=== PATIENT | male | born 1965 | race African-American/Black ===

== ENCOUNTER 2017-09-13 13:49 | Emergency (ER) | END 2017-09-13 17:13 | disposition home or self-care (01) ==

== ENCOUNTER 2018-12-14 17:09 | Inpatient (IN) | payer MEDICAID, OTHER ==
[~2018-12-14] VITALS: Ht 177.8 cm; Wt 84.0 kg
[2018-12-14 17:24] VITALS: Ht 177.8 cm; Wt 84.0 kg
[2018-12-14] MEDS ORDERED: ACETAMINOPHEN 325 MG TAB PO STA (17:27)
[2018-12-14] MEDS ORDERED: CEFTRIAXONE 1 GM/50 ML (PMX) 50 ML IVPB STA (17:27)
[2018-12-14] MEDS ORDERED: SODIUM CHLORIDE 0.9% 1L BAG IV* STA (17:31)
[2018-12-14] MEDS ORDERED: ONDANSETRON 4 MG INJ IV PRN (20:00)
--- NOTE | 2018-12-14 20:01 | ERD ---
ER Documentation Chief Complaint Chief Complaint bib ra from home c/o fever x 2 days ,hematuria , chest pain today HPI Patient is a 53-year-old male with prostate cancer who presents with fever. The patient has chest pain but denies cough. He has an indwelling urine catheter. He said this symptoms started a few days ago. He was on "some antibiotic" but does not know what it was. Upon review of old medical records this is the patient's third visit to the ER since 2018 but review of the emergency department information exchange system shows visits to 4 separate emergency departments for a total of 12 months over the past 1 year. His primary doctor is Dr. Scott. ROS All systems reviewed and are negative except as per history of present illness. Allergies Allergies: Coded Allergies: No Known Allergy (Unverified , 09/13/17) PMhx/Soc History of Surgery: Yes (right hip sx) Hx Neurological Disorder: No Hx Respiratory Disorders: No Hx Cardiac Disorders: Yes (htn) Hx Psychiatric Problems: No Hx Miscellaneous Medical Probl: Yes (enlarge prostate; prostate ca) Hx Alcohol Use: No Hx Substance Use: No Hx Tobacco Use: No Smoking Status: Never smoker FmHx Family History: diabetes Physical Exam Vitals Vital Signs Date Temp Pulse Resp B/P (MAP) Pulse Ox O2 O2 Flow FiO2 Time Delivery Rate 12/14/18 98.5 19:57 12/14/18 105 18 110/62 100 Room Air 19:06 (78) 12/14/18 102.1 17:38 12/14/18 Nasal 2 17:28 Cannula 12/14/18 102.1 110 18 98/63 (75) 96 17:24 Physical Exam Const: Moderate distress Head: Atraumatic Eyes: Normal Conjunctiva ENT: Normal External Ears, Nose and Mouth. Neck: Full range of motion. No meningismus. Resp: Clear to auscultation bilaterally Cardio: Tachycardic rate without murmur Abd: Soft, pain over the bladder Skin: No petechiae or rashes Back: No midline or flank tenderness Ext: No cyanosis, or edema Neur: Awake and alert Psych: Normal Mood and Affect Result Diagram: 12/14/18 1755 12/14/18 1755 Results 24 hrs Laboratory Tests Test 12/14/18 17:55 12/14/18 19:28 White Blood Count 5.6 10^3/ul Red Blood Count 3.37 10^6/ul Hemoglobin 9.6 g/dl Hematocrit 30.2 % Mean Corpuscular Volume 89.6 fl Mean Corpuscular Hemoglobin 28.5 pg Mean Corpuscular Hemoglobin Concent 31.8 g/dl Red Cell Distribution Width 16.0 % Platelet Count 162 10^3/UL Mean Platelet Volume 9.2 fl Immature Granulocytes % 2.100 % Neutrophils % 71.8 % Lymphocytes % 12.6 % Monocytes % 12.9 % Eosinophils % 0.2 % Basophils % 0.4 % Nucleated Red Blood Cells % 0.0 /100WBC Immature Granulocytes # 0.120 10^3/ul Neutrophils # 4.1 10^3/ul Lymphocytes # 0.7 10^3/ul Monocytes # 0.7 10^3/ul Eosinophils # 0.0 10^3/ul Basophils # 0.0 10^3/ul Nucleated Red Blood Cells # 0.0 10^3/ul Prothrombin Time 15.1 Sec Prothrombin Time Ratio 1.2 INR International Normalized Ratio 1.18 Activated Partial Thromboplast Time 31.6 Sec Sodium Level 135 mmol/L Potassium Level 4.2 mmol/L Chloride Level 102 mmol/L Carbon Dioxide Level 21 mmol/L Anion Gap 12 Blood Urea Nitrogen 28 mg/dl Creatinine 0.82 mg/dl Est Glomerular Filtrat Rate mL/min > 60 mL/min Glucose Level 86 mg/dl POC Venous Lactate 3.7 mmol/L Calcium Level 10.0 mg/dl Total Bilirubin 0.4 mg/dl Direct Bilirubin 0.00 mg/dl Indirect Bilirubin 0.4 mg/dl Aspartate Amino Transf (AST/SGOT) 25 IU/L Alanine Aminotransferase (ALT/SGPT) 10 IU/L Alkaline Phosphatase 964 IU/L Troponin I < 0.012 ng/ml Total Protein 5.8 g/dl Albumin 2.9 g/dl Globulin 2.90 g/dl Albumin/Globulin Ratio 1.00 Urine Color RED Urine Clarity CLOUDY Urine pH 6.0 Urine Specific [place] 1.014 Urine Ketones NEGATIVE mg/dL Urine Nitrite NEGATIVE mg/dL Urine Bilirubin NEGATIVE mg/dL Urine Urobilinogen NEGATIVE mg/dL Urine Leukocyte Esterase NEGATIVE [place]/ul Urine Microscopic RBC > 182 /HPF Urine Microscopic WBC > 182 /HPF Urine Bacteria FEW /HPF Urine Yeast (Budding) MODERATE /HPF Urine Hemoglobin 2+ mg/dL Urine Glucose 1+ mg/dL Urine Total Protein 2+ mg/dl Current Medications Medications Dose Sig/May Start Time Status Last (Trade) Ordered Route PRN Stop Time Admin Dose Reason Admin 650 mg ONCE STAT 12/14/18 DC 12/14/18 Acetaminophen PO 17:27 17:38 (Tylenol 12/14/18 17:28 Tab) Ceftriaxone 50 ml @ ONCE STAT 12/14/18 DC 12/14/18 Sodium 100 mls/hr IVPB 17:27 17:59 12/14/18 17:56 Sodium 2,520 ml BOLUS OVER 2 12/14/18 DC 12/14/18 Chloride HOURS STAT 17:31 17:59 (NS) IV* 12/14/18 17:32 Procedures/MDM Chest x-ray read by radiology. EKG read by me: Rate/Rhythm: Sinus tachycardia rate of 110 Intervals: Normal Impression: Tachycardia without ischemia Sepsis Documentation: Patient's infectious symptoms have not stabilized and the patient is at risk of rapid decompensation. The patient will be admitted for careful hydration, antibiotic therapy, and infectious source control. SEVERE SEPSIS CRITERIA: Infectious source: Cystitis End organ damage indicated by: Lactic acid greater than 2 SEPSIS MANAGEMENT Time of recognition of sepsis: 1754. Time of recognition of severe sepsis: 1754. Time of recognition of septic shock: No septic shock at this time. 3 HOUR BUNDLE Blood cultures x 2 before broad-spectrum antibiotics: Yes 30 ml/kg NS bolus completed Initial lactate 3.7 Repeat lactate pending SEPTIC SHOCK ASSESSMENT: No lactic acid > 4.0 No persistent hypotension (SBP < 90 or 40 mmHg drop, MAP < 65) despite 30 mL/kg IV fluid bolus VOLUME REASSESSMENT FOR SEPTIC SHOCK: No septic shock at this time PERSISTENT HYPOTENSION TREATMENT: Comfort care no Central line not Required Vasopressor started not required I considered further perfusion assessment with CVP measurement, SCVO2, bedside ultrasound volume assessment, passive leg raise, trial of further fluid bolus. And proceeded with 30 ml/kg fluid bolus of NSS, broad spectrum antibiotics, and admission. I spoke with Dr. Orr for admission to a telemetry bed. CRITICAL CARE Critical care time 35 minutes Emergent fluid management while maintaining close respiratory support. Provision of immediate and broad-spectrum antibiotic therapy. Simultaneous assessment for possible sources in order to direct targeted therapy. Consideration for invasive and chemical support to prevent cardiopulmonary collapse. Critical care time is independent of procedures performed. Departure Diagnosis: Primary Impression: Severe sepsis Additional Impression: Cystitis Condition: Serious MARI CARSON MD Dec 14, 2018 20:01
[2018-12-14] MEDS ORDERED: PIPER-TAZO 3.375 GM IV (PMX) 100 ML IVPB ONE (20:30)
[2018-12-14 21:23] VITALS: PULSE 107
[2018-12-14 21:30] VITALS: BP 109/59; PULSE 106; RESP 18
[2018-12-14] MEDS: SOD CHLORIDE 0.9% 1,000 ML IV SCH (23:00)
[2018-12-15] VITALS (12 sets, daily range): BP systolic 88–110; BP diastolic 55–65; PULSE 67–115; RESP 18–23
[2018-12-15] MEDS ORDERED: DOCUSATE SODIUM 100 MG CAP PO PRN (01:00)
[2018-12-15] MEDS ORDERED: HYDROCODONE/APAP (5/325) TAB PO PRN (01:00)
[2018-12-15] MEDS ORDERED: HYDROCODONE/APAP (10/325) TAB PO PRN (01:00)
[2018-12-15] MEDS ORDERED: PIPER-TAZO 3.375 GM IV (PMX) 100 ML IVPB SCH (02:00)
[2018-12-15] MEDS ORDERED: PENDING SANTYL ORDER FOR WOUND CARE XX PRN (02:30)
[2018-12-15] MEDS: PANTOPRAZOLE (EC) 40 MG TAB PO SCH (05:37)
[2018-12-15] MEDS: PIPER-TAZO 3.375 GM IV (PMX) 100 ML IVPB SCH ×3 (05:37→22:29)
[2018-12-15] MEDS: METOPROLOL 25 MG TAB PO SCH ×2 (09:00→22:27)
[2018-12-15] MEDS: GABAPENTIN 300 MG CAP PO SCH ×2 (09:35→22:28)
[2018-12-15] MEDS: FOLIC ACID 1 MG TAB PO SCH ×2 (09:35→22:28)
[2018-12-15] MEDS: THIAMINE 100 MG TAB PO SCH ×2 (09:36→22:28)
[2018-12-15] MEDS: CYANOCOBALAMIN 500 MCG TAB PO SCH ×2 (09:36→22:28)
[2018-12-15] MEDS: FINASTERIDE 5 MG TAB PO SCH (09:36)
--- NOTE | 2018-12-15 11:07 | HP ---
DATE OF ADMISSION: 12/14/2018 CHIEF COMPLAINT: Fevers associated with bloody urine. HISTORY OF PRESENT ILLNESS: A 53-year-old unfortunate male with widely metastatic prostate cancer an d chronic indwelling Mcpherson catheter, presented to emergency room with complaint of subjective fevers and bloody urine. The patient reports the symptoms started a few days prior to admission. He was st arted on oral antibiotics with no improvement in his symptoms. Mcpherson catheter has been in place [facility] 06/2019. The patient received Lupron shots as an outpatient. Prostate cancer is spread to the banner and patient has chronic low back pain. Initial evaluation revealed a contaminated urine with associated gross hematuria. Lactic acid was el evated at 3.3. Renal function was intact. White blood cell count was normal at 5.6. PAST MEDICAL HISTORY: 1. Widely metastatic prostate cancer. 2. Chronic urinary retention. 3. Chronic indwelling Mcpherson catheter. 4. Hypertension. MEDICATIONS PRIOR TO ADMISSION: 1. Flomax. 2. Metoprolol. 3. Gabapentin. 4. [place]. 5. Vitamin supplements. 6. Finasteride. 7. Lupron shots every 3 months. SOCIAL HISTORY: Patient lives at home. The was at the bedside. He denies tobacco, alcohol use . PHYSICAL EXAMINATION: GENERAL: Well-developed, well-nourished male who is in no apparent distress. VITAL SIGNS: Blood pressure is 103/59, pulse 115, temperature 98, respiration is 22. HEENT: Extraocular muscles intact. Pupils are equal and reactive to light bilaterally. Sclerae are anicteric. Oropharynx is clear and moist. NECK: Supple, no JVD, no carotid bruits. LUNGS: Clear to auscultation bilaterally. CARDIAC: Regular rate and rhythm. No murmurs or gallops. ABDOMEN: Soft, nontender, nondistended, normoactive bowel sounds. EXTREMITIES: No clubbing, cyanosis, or edema. NEUROLOGICAL: Grossly nonfocal. PLAN: 1. Admit to telemetry. 2. IV Zosyn every 8 hours. 3. Continuous bladder irrigation. 4. Resume Proscar and Flomax. 5. Urology consultation was requested. 6. Urine culture was ordered. Dictated By: JING REYNOLDS/THIERRY Conf#: [id number] DID#: [id number] CC: RYAN SEBASTIAN MD;*[facility]*
[2018-12-15] MEDS: ACETAMINOPHEN 325 MG TAB PO PRN ×2 (11:52→16:43)
[2018-12-15] MEDS: SOD CHLORIDE 0.9% 1,000 ML IV SCH ×2 (11:53→22:26)
--- NOTE | 2018-12-15 19:44 | CONS ---
Assessment/Plan Assessment/Plan Hospital Course (Demo Recall) 53-year-old male known to have a history of prostate cancer with metastasis. The patient condition has been deteriorating. He has been on Lupron Depot injection and recently was started on radiation. He only had one dose of radiation before he was admitted to another hospital. He has not been able to urinate and needed an indwelling Mcpherson catheter which is being changed every month or earlier if obstructed. The patient was admitted to [facility] this time because of hematuria and urinary tract infection. The patient has not been able to move his lower extremities and he was seen by the neurosurgeon who recommended radiation to the tumor in the back and that is why the patient was getting radiation. Presently the patient does have a fever and possible urinary tract infection. The chest x-ray showed:1. New 3.8 cm rounded opacity at the left apex. Cannot exclude pulmonary mass. 2. Mild right lower lung consolidation or atelectasis. 3. CT scan of the chest is advised to further evaluate.. Urologically he already has received the Lupron Depot injections and he has an indwelling Mcpherson catheter which I will change to a new one in a.m. Would encourage to elevate the scrotum on a towel all the time to help decrease the edema. Continue supportive treatment and comfort treatment Consultation Date/Type/Reason Admit Date/Time Dec 14, 2018 at 19:58 Date of Consultation: Dec 15, 2018 Type of Consult Urology Reason for Consultation Metastatic prostate cancer, gross hematuria and urinary retention Requesting Provider: JING BRICENO MD Date/Time of Note DATE: 12/15/18 TIME: 19:35 Hx of Present Illness 53-year-old male known to have a history of prostate cancer with metastasis. The patient condition has been deteriorating. He has been on Lupron Depot injection and recently was started on radiation. He only had one dose of radiation before he was admitted to another hospital. He has not been able to urinate and needed an indwelling Mcpherson catheter which is being changed every month or earlier if obstructed. The patient was admitted to [facility] this time because of hematuria and urinary tract infection. The patient has not been able to move his lower extremities and he was seen by the neurosurgeon who recommended radiation to the tumor in the back and that is why the patient was getting radiation. Constitutional: other (Patient is very weak) Respiratory: No wheezing Cardiovascular: No chest pain Genitourinary: other (Edema of the penis and scrotum) Musculoskeletal: other (Edema over both thighs) Neurologic: other (Weakness of both lower extremities) Past Medical History Medical History: cancer (Of the prostate), hypertension Medications Current Medications Ondansetron HCl (Zofran Inj) 4 mg ER BRIDGE PRN IV NAUSEA/VOMITING; Start 12/14/18 at 20:00; Stop 12/15/18 at 19:59 Acetaminophen (Tylenol Tab) 650 mg ER BRIDGE PRN PO .MILD PAIN 1-3 OR TEMP Last administered on 12/15/18at 16:43; Admin Dose 650 MG; Start 12/14/18 at 20:00; Stop 12/15/18 at 19:59 Sodium Chloride 1,000 ml @ 100 mls/hr Q10H IV Last administered on 12/15/18at 11:53; Admin Dose 100 MLS/HR; Start 12/14/18 at 23:00 Piperacillin Sod/ Tazobactam Sod 100 ml @ 200 mls/hr Q8 IVPB Last administered on 12/15/18at 15:46; Admin Dose 200 MLS/HR; Start 12/15/18 at 05:00 Acetaminophen/ Hydrocodone Bitart ([place] (5/325)) 1 tab Q6H PRN PO PAIN LEVEL 1-3; Start 12/15/18 at 01:00 Acetaminophen/ Hydrocodone Bitart ([place] (10/325)) 1 tab Q6H PRN PO MODERATE PAIN LEVEL 4-6; Start 12/15/18 at 01:00 Docusate Sodium (Colace) 100 mg BID PRN PO CONSTIPATION; Start 12/15/18 at 01:00 Metoprolol Tartrate (Lopressor) 25 mg BID PO ; Start 12/15/18 at 09:00 Finasteride (Proscar) 5 mg DAILY PO Last administered on 12/15/18at 09:36; Admin Dose 5 MG; Start 12/15/18 at 09:00 Tamsulosin HCl (Flomax) 0.4 mg HS PO ; Start 12/15/18 at 21:00 Gabapentin (Neurontin) 300 mg BID PO Last administered on 12/15/18at 09:35; Admin Dose 300 MG; Start 12/15/18 at 09:00 Pantoprazole (Protonix Tab) 40 mg DAILY@06 PO Last administered on 12/15/18at 05:37; Admin Dose 40 MG; Start 12/15/18 at 06:00 Cyanocobalamin (Vitamin B12) 1,000 mcg BID PO Last administered on 12/15/18at 09:36; Admin Dose 1,000 MCG; Start 12/15/18 at 09:00 Thiamine HCl (Vitamin B1) 100 mg BID PO Last administered on 12/15/18at 09:36; Admin Dose 100 MG; Start 12/15/18 at 09:00 Folic Acid (Folic Acid) 1 mg BID PO Last administered on 12/15/18at 09:35; Admin Dose 1 MG; Start 12/15/18 at 09:00 Miscellaneous Information ([facility]) This patient wade... PRN PRN XX WOUND CARE; Start 12/15/18 at 02:30 Allergies: Coded Allergies: No Known Allergy (Unverified , 09/13/17) Past Surgical History Past Surgical Hx: no surgical history Social History Smoking Status: Never smoker Exam/Review of Systems Exam Vitals Vital Signs Date Temp Pulse Resp B/P (MAP) Pulse Ox O2 O2 Flow FiO2 Time Delivery Rate 12/15/18 99.8 17:28 12/15/18 110 16:00 12/15/18 23 107/63 96 Room Air 15:46 (78) 12/15/18 2.0 08:22 Intake and Output 12/14/18 12/14/18 12/15/18 1515:00 23:00 07:00 OutputOutput Total 1000 ml BalanceBalance -1000 ml Constitutional: alert Psych: depression ENMT: nl external ears & nose Neck: supple Respiratory: No wheezing Cardiovascular: No jugular venous distention (JVD) Gastrointestinal: soft Genitourinary - Male: other (With edema of both testes and penis) Extremities: edema (Of both thighs) Neurological: focal weakness (Of both lower extremities) Results Result Diagram: 12/14/18 6737 12/14/18 8005 Results 24hrs Laboratory Tests Test 12/14/18 20:08 12/14/18 21:52 POC Venous Lactate 3.1 *H Lactic Acid Level 3.3 *H Medications Medication Current Medications Ondansetron HCl (Zofran Inj) 4 mg ER BRIDGE PRN IV NAUSEA/VOMITING; Start 12/14/18 at 20:00; Stop 12/15/18 at 19:59 Acetaminophen (Tylenol Tab) 650 mg ER BRIDGE PRN PO .MILD PAIN 1-3 OR TEMP Last administered on 12/15/18at 16:43; Admin Dose 650 MG; Start 12/14/18 at 20:00; Stop 12/15/18 at 19:59 Sodium Chloride 1,000 ml @ 100 mls/hr Q10H IV Last administered on 12/15/18at 11:53; Admin Dose 100 MLS/HR; Start 12/14/18 at 23:00 Piperacillin Sod/ Tazobactam Sod 100 ml @ 200 mls/hr Q8 IVPB Last administered on 12/15/18at 15:46; Admin Dose 200 MLS/HR; Start 12/15/18 at 05:00 Acetaminophen/ Hydrocodone Bitart ([place] (5/325)) 1 tab Q6H PRN PO PAIN LEVEL 1-3; Start 12/15/18 at 01:00 Acetaminophen/ Hydrocodone Bitart ([place] (10/325)) 1 tab Q6H PRN PO MODERATE PAIN LEVEL 4-6; Start 12/15/18 at 01:00 Docusate Sodium (Colace) 100 mg BID PRN PO CONSTIPATION; Start 12/15/18 at 01:00 Metoprolol Tartrate (Lopressor) 25 mg BID PO ; Start 12/15/18 at 09:00 Finasteride (Proscar) 5 mg DAILY PO Last administered on 12/15/18at 09:36; Admin Dose 5 MG; Start 12/15/18 at 09:00 Tamsulosin HCl (Flomax) 0.4 mg HS PO ; Start 12/15/18 at 21:00 Gabapentin (Neurontin) 300 mg BID PO Last administered on 12/15/18at 09:35; Admin Dose 300 MG; Start 12/15/18 at 09:00 Pantoprazole (Protonix Tab) 40 mg DAILY@06 PO Last administered on 12/15/18at 05:37; Admin Dose 40 MG; Start 12/15/18 at 06:00 Cyanocobalamin (Vitamin B12) 1,000 mcg BID PO Last administered on 12/15/18at 09:36; Admin Dose 1,000 MCG; Start 12/15/18 at 09:00 Thiamine HCl (Vitamin B1) 100 mg BID PO Last administered on 12/15/18at 09:36; Admin Dose 100 MG; Start 12/15/18 at 09:00 Folic Acid (Folic Acid) 1 mg BID PO Last administered on 12/15/18at 09:35; Admin Dose 1 MG; Start 12/15/18 at 09:00 Miscellaneous Information (Pending [place]yl Order For Wound Care) This patient wade... PRN PRN XX WOUND CARE; Start 12/15/18 at 02:30 RYAN SEBASTIAN MD Dec 15, 2018 19:44
[2018-12-15] MEDS: TAMSULOSIN (SR) 0.4 MG CAP PO SCH (22:28)
[2018-12-16] VITALS (12 sets, daily range): BP systolic 98–123; BP diastolic 65–71; PULSE 89–122; RESP 17–19
[2018-12-16] MEDS: GUAIFENESIN/DM 5ML CUP PO PRN ×3 (03:34→21:51)
[2018-12-16] MEDS: SOD CHLORIDE 0.9% 1,000 ML IV SCH ×2 (05:00→15:00)
[2018-12-16] MEDS: PIPER-TAZO 3.375 GM IV (PMX) 100 ML IVPB SCH ×2 (05:26→14:00)
[2018-12-16] MEDS: PANTOPRAZOLE (EC) 40 MG TAB PO SCH (05:29)
--- NOTE | 2018-12-16 08:34 | CONS ---
Consult Date/Type/Reason Admit Date/Time Dec 14, 2018 at 19:58 Initial Consult Date 12/15/18 Type of Consultation: Urology Reason for Consultation Hematuria and metastatic prostate cancer Requesting Provider: JING BRICENO MD Date/Time of Note DATE: 12/16/18 TIME: 08:31 Subjective Patient is comfortable and no change overnight. Objective Vitals Vital Signs Date Temp Pulse Resp B/P (MAP) Pulse Ox O2 O2 Flow FiO2 Time Delivery Rate 12/16/18 98.3 102 19 123/68 95 Nasal 2.0 07:36 (86) Cannula Intake and Output 12/15/18 12/15/18 12/16/18 1515:00 23:00 07:00 IntakeIntake Total 1000 ml 1550 ml 250 ml OutputOutput Total 1200 ml 1100 ml BalanceBalance 1000 ml 350 ml -850 ml Exam Edema of both thighs, scrotum and penis. Old Mcpherson catheter is draining well. Occasional blood clot is seen in the tubing. Results/Medications Result Diagram: 12/14/18 1755 12/14/18 1755 Medications Current Medications Sodium Chloride 1,000 ml @ 100 mls/hr Q10H IV Last administered on 12/15/18at 22:26; Admin Dose 100 MLS/HR; Start 12/14/18 at 23:00 Piperacillin Sod/ Tazobactam Sod 100 ml @ 200 mls/hr Q8 IVPB Last administered on 12/16/18at 05:26; Admin Dose 200 MLS/HR; Start 12/15/18 at 05:00 Acetaminophen/ Hydrocodone Bitart ([place] (5/325)) 1 tab Q6H PRN PO PAIN LEVEL 1-3; Start 12/15/18 at 01:00 Acetaminophen/ Hydrocodone Bitart ([place] (10/325)) 1 tab Q6H PRN PO MODERATE PAIN LEVEL 4-6; Start 12/15/18 at 01:00 Docusate Sodium (Colace) 100 mg BID PRN PO CONSTIPATION; Start 12/15/18 at 01:00 Metoprolol Tartrate (Lopressor) 25 mg BID PO Last administered on 12/15/18at 22:27; Admin Dose 25 MG; Start 12/15/18 at 09:00 Finasteride (Proscar) 5 mg DAILY PO Last administered on 12/15/18at 09:36; Admin Dose 5 MG; Start 12/15/18 at 09:00 Tamsulosin HCl (Flomax) 0.4 mg HS PO Last administered on 12/15/18 22:28; Admin Dose 0.4 MG; Start 12/15/18 at 21:00 Gabapentin (Neurontin) 300 mg BID PO Last administered on 12/15/18 22:28; Admin Dose 300 MG; Start 12/15/18 at 09:00 Pantoprazole (Protonix Tab) 40 mg DAILY@06 PO Last administered on 12/16/18 05:29; Admin Dose 40 MG; Start 12/15/18 at 06:00 Cyanocobalamin (Vitamin B12) 1,000 mcg BID PO Last administered on 12/15/18 22:28; Admin Dose 1,000 MCG; Start 12/15/18 at 09:00 Thiamine HCl (Vitamin B1) 100 mg BID PO Last administered on 12/15/18 22:28; Admin Dose 100 MG; Start 12/15/18 at 09:00 Folic Acid (Folic Acid) 1 mg BID PO Last administered on 12/15/18 22:28; Admin Dose 1 MG; Start 12/15/18 at 09:00 Miscellaneous Information (Pending [facility] Order For Wound Care) This patient wade... PRN PRN XX WOUND CARE; Start 12/15/18 at 02:30 Guaifenesin/ Dextromethorphan (Robitussin Dm Liquid Cup) 10 ml Q4H PRN PO COUGH Last administered on 12/16/18 03:34; Admin Dose 10 ML; Start 12/16/18 at 03:30 Assessment/Plan Hospital Course (Demo Recall) 53-year-old male known to have a history of prostate cancer with metastasis. The patient condition has been deteriorating. He has been on Lupron Depot injection and recently was started on radiation. He only had one dose of radia tion before he was admitted to another hospital. He has not been able to urinate and needed an indwelling Mcpherson catheter which is being changed every month or earlier if obstructed. The patient was admitted to [facility] this time because of hematuria and urinary tract infection. The patient has not been able to move his lower extremities and he was seen by the neurosurgeon who recommended radiation to the tumor in the back and that is why the patient was getting radiation. Presently the patient does have a fever and possible urinary tract infection. The chest x-ray showed:1. New 3.8 cm rounded opacity at the left apex. Cannot exclude pulmonary mass. 2. Mild right lower lung consolidation or atelectasis. 3. CT scan of the chest is advised to further evaluate.. Urologically he already has received the Lupron Depot injections. I removed the old Mcpherson catheter and inserted a new 18 Welsh three-way Mcpherson catheter. I did not start bladder irrigation but it could be done if needed.. Would encourage to elevate the scrotum on a towel all the time to help decrease the edema. Continue supportive treatment and comfort treatment I did discuss with his who was at his bedside his condition. RYAN SEBASTIAN MD Dec 16, 2018 08:34
[2018-12-16] MEDS: FINASTERIDE 5 MG TAB PO SCH (09:22)
[2018-12-16] MEDS: CYANOCOBALAMIN 500 MCG TAB PO SCH ×2 (09:22→21:50)
[2018-12-16] MEDS: FOLIC ACID 1 MG TAB PO SCH ×2 (09:22→21:50)
[2018-12-16] MEDS: GABAPENTIN 300 MG CAP PO SCH ×2 (09:23→21:50)
[2018-12-16] MEDS: METOPROLOL 25 MG TAB PO SCH ×2 (09:23→21:00)
[2018-12-16] MEDS: THIAMINE 100 MG TAB PO SCH ×2 (09:24→21:50)
--- NOTE | 2018-12-16 09:56 | PDOCDIS ---
Discharge Instructions CONDITION [id number] Patient Condition: [id number] Fair HOME CARE INSTRUCTIONS: [id number] Diet Instructions: [id number] FOLLOW UP/APPOINTMENTS Follow-up Plan pcp 1 week JING BRICENO MD Dec 16, 2018 09:55
[2018-12-16] MEDS ORDERED: ENZA40CA PO (10:10)
[2018-12-16] MEDS ORDERED: HYDR-3601 PO (10:17)
[2018-12-16] MEDS ORDERED: FINA5TAB4 PO (10:17)
[2018-12-16] MEDS ORDERED: LEVO500T48 PO (10:17)
[2018-12-16] MEDS ORDERED: METO-448 PO (10:17)
[2018-12-16] MEDS ORDERED: GABA300C16 PO (10:17)
--- NOTE | 2018-12-16 16:22 | DS ---
DATE OF ADMISSION: 12/14/2018 DATE OF DISCHARGE: 12/16/2018 DISCHARGE DIAGNOSES: 1. Widely metastatic prostate cancer. 2. Gross hematuria, improved. 3. Possible urinary tract infection. 4. Acute bronchitis. 5. Hypertension. 6. Poor prognosis. HOSPITAL COURSE: A 53-year-old unfortunate male with widely metastatic prostate cancer, undergoing L upron injections as an outpatient as well as radiation, presented with complaint of fever and gross h ematuria. The patient received continuous bladder irrigation during the hospitalization. Blood and urine cultures were negative except Karon growth in the urine about 30,000 colonies. The case was discussed with Dr. Negron. Chest x-ray showed new 3.8 cm rounded opacity at the left apex. Pulmona ry mass could not be excluded. His overall prognosis is quite poor and he is bedridden. Cancer invo lves low back, for which he is receiving radiation. The patient is in a stable condition for dischar ge to home with resumption of home health nurse. I have prescribed 7 days of Levaquin for treatment of acute bronchitis and possible UTI. Dictated By: JING REYNOLDS/THIERRY Conf#: [id number] DID#: [id number]
[2018-12-16] MEDS ORDERED: FLUCONAZOLE 200 MG TAB PO SCH (18:00)
[2018-12-16] MEDS: TAMSULOSIN (SR) 0.4 MG CAP PO SCH (21:50)
[2018-12-17] VITALS: PULSE 50
== END 2018-12-16 23:15 | disposition home or self-care (01) | DRG 202 ==
LOC: E/R 17:09 → TEL 19:58
PROVIDERS: ADMIT Internal Medicine; ATTEND Internal Medicine
DX: J20.9 Acute bronchitis, unspecified (principal); N39.0 Urinary tract infection, site not specified; C79.51 Secondary malignant neoplasm of bone; R33.9 Retention of urine, unspecified; I10 Essential (primary) hypertension; C61 Malignant neoplasm of prostate; R31.0 Gross hematuria; Z79.818 Long term (current) use of other agents affecting estrogen receptors and estrogen levels
CPT/HCPCS: 71045; 80053; 81001; 83605; 84484; 85025; 85610; 85730; 87045; 87075; 87081; 87086; 93005; 96374; J0696; J2543; J7030

== ENCOUNTER 2019-01-25 13:28 | Inpatient (IN) | payer OTHER ==
[~2019-01-25] VITALS: Ht 177.8 cm; Wt 81.6 kg
[~2019-01-25 13:28] MED LIST: ENZA40CA PO; FINA5TAB4 PO; GABA300C16 PO; HYDR-3601 PO; LEVO500T48 PO; METO-448 PO
[2019-01-25] MEDS ORDERED: SODIUM CHLORIDE 0.9% 1L BAG IV* STA ×2 (13:53→21:58)
--- NOTE | 2019-01-25 14:01 | ERD ---
ER Documentation Chief Complaint Chief Complaint BIBA fr home, weakness, possible low H/H HPI This is a 54-year-old male with a past medical history of prostate carcinoma. The patient also has a history of hypertension chronic anemia with frequent blood transfusions. The patient indicates that the prostate cancer has metastasized to the bone. The patient had ancillary laboratory work performed yesterday received a call that his hemoglobin was 4. The patient does indicate for the past several days he has had generalized weakness. He denies any hemoptysis hematemesis or melanotic stools. The patient indicates he had a dec rease in appetite and poor oral intake. He has no chest pain. He has no shortness of breath. He denies any hematuria. He has an indwelling Mcpherson catheter. The patient was brought in from home by EMS. ROS All systems reviewed and are negative except as per history of present illness. Medications Home Meds Reported Medications Hydrocodone/Acetaminophen ([place] 10-325 Tablet) 1 Each Tablet, 1 EACH PO Q6 PRN for PAIN, TAB 01/25/19 Morphine Sulfate* (Ms Contin*) 15 Mg Tablet.sa, 15 MG PO Q12 PRN for PAIN, TAB 01/25/19 Metoprolol Tartrate* (Lopressor*) 25 Mg Tablet, 25 MG PO BID, #60 TAB if blood pressure is 110 or higher 01/25/19 Sennosides* (Senna Lax*) 8.6 Mg Tablet, 1 TAB PO DAILY, TAB 01/25/19 Enzalutamide (XTANDI) 40 Mg Capsule, 160 MG PO QHS, CAP pt has own med 01/25/19 Finasteride* (Finasteride*) 5 Mg Tablet, 5 MG PO DAILY, TAB 01/25/19 Pantoprazole* (Protonix*) 40 Mg Tablet.dr, 40 MG PO DAILY, TAB 01/25/19 Ferrous Sulfate* (Ferrous Sulfate*) 325 Mg Tabec, 325 MG PO BID, TAB 01/25/19 Tamsulosin Hcl* (Flomax*) 0.4 Mg Cap.er.24h, 0.4 MG PO DAILY, CAP 01/25/19 Discontinued Reported Medications Enzalutamide (XTANDI) 40 Mg Capsule, 160 MG PO, CAP 12/16/18 Discontinued Scripts Levofloxacin* (Levaquin*) 500 Mg Tablet, 500 MG PO DAILY for 7 Days, TAB Prov:JING ORR MD 12/16/18 Finasteride* (Finasteride*) 5 Mg Tablet, 5 MG PO DAILY for 30 Days, TAB Prov:JING ORR MD 12/16/18 Hydrocodone Bit-Acetaminophen (Hydrocodone Bit-APAP) 5-325MG Tablet, 1 TAB PO Q6H PRN for PAIN LEVEL 1-3 for 30 Days, TAB Prov:JING ORR MD 12/16/18 Gabapentin* (Gabapentin*) 300 Mg Capsule, 300 MG PO BID for 30 Days, CAP Prov:JING ORR MD 12/16/18 Metoprolol Tartrate* (Lopressor*) 25 Mg Tab, 25 MG PO BID for 30 Days, TAB Prov:JING ORR MD 12/16/18 Allergies Allergies: Coded Allergies: No Known Allergy (Unverified , 01/25/19) PMhx/Soc History of Surgery: Yes ( right hip sx) Hx Neurological Disorder: No Hx Respiratory Disorders: No Hx Cardiac Disorders: No (htn) Hx Psychiatric Problems: No Hx Miscellaneous Medical Probl: Yes (cardiac dx) Hx Alcohol Use: No Hx Substance Use: No Hx Tobacco Use: No Physical Exam Vitals Vital Signs Date Temp Pulse Resp B/P (MAP) Pulse Ox O2 O2 Flow FiO2 Time Delivery Rate 01/25/19 98.7 118 24 76/49 (58) 100 Room Air 17:08 01/25/19 98.7 108 20 78/50 (59) 99 13:45 Physical Exam Constitutional:Well-developed. Cachectic HEENT:Normocephalic. Atraumatic.Pupils were equal round reactive to light. Very dry mucous membranes.No tonsillar exudates. Conjunctival pallor Neck: No nuchal rigidity. No lymphadenopathy. No posterior cervical spine tenderness or step-offs. Respiratory: Not using accessory muscles of respiration.Lungs were clear to auscultation bilaterally. No rhonchi. No rales. No wheezing. Cardiovascular: Tachycardic with regular rhythm.No murmurs. No rubs were appreciated.S1, S2 normal. Distal pulses are palpable 2+ bilaterally. GI: Abdomen was soft. Nontender. Non Distended. No pulsatile abdominal masses or bruits. No rebound. No guarding. Bowel sounds were present and normal. Muscle skeletal: Muscle atrophy in the bilateral lower extremities and patient is unable to lift the lower extremities against gravity. Skin: No petechia, no purpura. No lesions on the palms or the soles of the feet. No maculopapular rash. Sacral decubitus ulcer measuring roughly 6 cm x 5 cm stage III. No purulent drainage. Heel ulcers present bilaterally stage II. NEURO: Patient was alert, awake, orientated x3. Patient speaks in a soft tone. Patient bedbound gait not observed. Result Diagram: 01/25/19 1414 01/25/19 1414 Results 24 hrs Laboratory Tests Test 01/25/19 14:14 01/25/19 14:23 01/25/19 16:31 01/25/19 16:40 White Blood Count 5.3 10^3/ul Red Blood Count 1.44 10^6/ul Hemoglobin 4.3 g/dl Hematocrit 14.5 % Mean Corpuscular 100.7 fl Volume Mean Corpuscular 29.9 pg Hemoglobin Mean Corpuscular 29.7 g/dl Hemoglobin Concent Red Cell 19.2 % Distribution Width Platelet Count 143 10^3/UL Mean Platelet 9.8 fl Volume Immature 5.600 % Granulocytes % Neutrophils % 86.7 % Segmented 75 % Neutrophils % (Manual) Band Neutrophils % 19 % (Manual) Lymphocytes % 4.1 % Lymphocytes % 3 % (Manual) Monocytes % 3.4 % Monocytes % 2 % (Manual) Eosinophils % 0.0 % Eosinophils % 1 % (Manual) Basophils % 0.2 % Nucleated Red Blood 0.4 /100WBC Cells % Immature 0.300 10^3/ul Granulocytes # Neutrophils # 4.6 10^3/ul Neutrophils # 4.0 10^3/ul (Manual) Band Neutrophils # 1.0 10^3/ul Lymphocytes 0.1 10^3/ul (Manual) Lymphocytes # 0.2 10^3/ul Monocytes # 0.2 10^3/ul Monocytes # 0.1 10^3/ul (Manual) Eosinophils # 0.0 10^3/ul Basophils # 0.0 10^3/ul Nucleated Red Blood 0.0 10^3/ul Cells # Pathologist YES Review (Hematology) Platelet Estimate NORMAL Polychromasia 1+ Hypochromasia 2+ Poikilocytosis 2+ Anisocytosis 1+ Microcytosis 1+ Macrocytosis 1+ Tear Drop Cells 1+ Prothrombin Time 15.2 Sec Prothrombin Time 1.2 Ratio INR International 1.19 Normalized Ratio Activated 35.3 Sec Partial Thromboplas t Time Sodium Level 131 mmol/L Potassium Level 4.3 mmol/L Chloride Level 100 mmol/L Carbon Dioxide 22 mmol/L Level Anion Gap 9 Blood Urea Nitrogen 14 mg/dl Creatinine 0.41 mg/dl Est Glomerular > 60 mL/min Filtrat Rate mL/min Glucose Level 105 mg/dl Calcium Level 7.6 mg/dl Total Bilirubin 0.4 mg/dl Direct Bilirubin 0.00 mg/dl Indirect Bilirubin 0.4 mg/dl Aspartate Amino < 8 IU/L Transf (AST/SGOT) Alanine 14 IU/L Aminotransferase (A LT/SGPT) Alkaline 335 IU/L Phosphatase Troponin I < 0.012 ng/ml Total Protein 5.5 g/dl Albumin 2.2 g/dl Globulin 3.30 g/dl Albumin/Globulin 0.66 Ratio Amylase Level 86 U/L Lipase 101 U/L POC Venous Lactate 3.2 mmol/L Lactic Acid Level 3.0 mmol/L Urine Color YELLOW Urine Clarity CLOUDY Urine pH 5.0 Urine Specific 1.018 [place] Urine Ketones TRACE mg/dL Urine Nitrite NEGATIVE mg/dL Urine Bilirubin NEGATIVE mg/dL Urine Urobilinogen NEGATIVE mg/dL Urine Leukocyte 2+ Te[place]ilo/ul Esterase Urine Microscopic 27 /HPF RBC Urine Microscopic > 182 /HPF WBC Urine Yeast FEW /HPF (Budding) Urine Hemoglobin 2+ mg/dL Urine Glucose NEGATIVE mg/dL Urine Total Protein 1+ mg/dl Current Medications Medications Dose Sig/May Start Time Status Last (Trade) Ordered Route PRN Stop Time Admin Dose Reason Admin Sodium 2,800 ml BOLUS OVER 2 01/25/19 DC 01/25/19 Chloride HOURS STAT 13:53 01/25/19 14:33 (NS) IV* 13:56 Cefepime HCl 50 ml @ ONCE STAT 01/25/19 DC 01/25/19 100 mls/hr IVPB 14:40 01/25/19 14:54 15:09 Vancomycin 250 ml @ ONCE ONCE 01/25/19 DC 01/25/19 HCl 125 mls/hr IVPB 15:00 01/25/19 15:38 16:59 Ondansetron 4 mg ER BRIDGE 01/25/19 HCl (Zofran PRN IV 17:00 01/26/19 Inj) NAUSEA/VOMITI 16:59 NG 650 mg ER BRIDGE 01/25/19 Acetaminophen PRN PO 17:00 01/26/19 (Tylenol .MILD PAIN 16:59 Tab) 1-3 OR TEMP 650 mg Q4H PRN 01/25/19 Acetaminophen PO fever 18:00 (Tylenol Tab) Finasteride 5 mg DAILY PO 01/26/19 (Proscar) 09:00 1 tab Q6H PRN 01/25/19 Acetaminophen PO MODERATE 18:00 / PAIN LEVEL Hydrocodone 4-6 Bitart ([place] (10/325)) Morphine 15 mg Q12 PRN 01/25/19 Sulfate (Ms PO SEVERE 18:00 Contin (Er)) PAIN LEVEL 7-10 40 mg DAILY PO 01/26/19 Pantoprazole 09:00 (Protonix Tab) Senna 1 tab DAILY PO 01/26/19 (Senokot) 09:00 Tamsulosin 0.4 mg DAILY PO 01/26/19 HCl 09:00 (Flomax) 160 mg QHS PO 01/25/19 UNV Miscellaneous 21:00 Information Procedures/MDM This is a 54-year-old male that presented to the emergency department signs of clinical dehydration hypotension and conjunctival pallor. The patient immediately was placed on a panel monitor continuous pulse oximetry and IV access was established by nursing staff. The patient did also meet Sirs criteria. He was given a 30 cc/kg bolus of normal saline as the patient showed signs of clinical dehydration to improve his hypotension. The patient was typed and crossed for 2 units of packed red blood cells as hemoglobin was 4.3. 12 Lead EKG tracing ordered and reviewed by myself showed: Sinus tachycardia 115 bpm and no arrhythmia. CA interval normal. QRS duration normal. No ST segment elevation No ST segment depression. No changes consistent with acute ischemia. Patient's infectious symptoms have not stabilized and the patient is at risk of rapid decompensation. The patient will be admitted for careful hydration, antibiotic therapy, and infectious source control. Severe Sepsis Assessment: Infectious Source: Pyleonephritis End organ damage indicated by: Lactate > 2.0 mmol/L Hypotension( SBP < 90 or >40 mmHG drop or MAP < 65) Severe Sepsis Managment: Blood Cultures X 2 before broad spectrum antibiotics initiated within 3 hours of recognition. 30 ml/kg NS bolus Completed Initial Lactate: 3.2 Repeat Lactate pending Septic Shock Assessment (1 hour post 30 ml/kg fluid bolus): Hypotension (SBP < 90 or 40 mmHg drop, MAP < 65): Yes Lactic acid > 4.0 No Perfusion Reassessment for Septic Shock taken at 1708: Temp 98.6, Pulse 118, RR 24, BP 76/49 Heart Exam: Tachycardic Lung Exam: No Crackles Capillary Refill: Normal Peripheral Pulses: Radially present Skin: Pale Hypotensive Treatment (not required for isolated lactic acid elevation): Comfort Care: No Central LIne: Patient refused Vasopressor started: Not given patient requested further IV fluids I considered further perfusion assessment with CVP measurement, SCVO2, bedside ultrasound volume assessment, passive leg raise, trial of further fluid bolus. And preceded with IV fluids Please note that I had a lengthy discussion with the patient and his regarding the persistent hypotension despite IV fluids. I indicated that the patient would require a central line for possible vasopressor support. The patient was a medical capacity to make his own decisions. The patient and his stated that they were refusing a central line at this time. The patient had been in the emergency department for over 5 hours. During this time the patient was septic and had received IV antibiotics which included vancomycin. I did feel that this could have contributed to the patient's hypotension in addition to his severe sepsis and dehydration. However the patient states for the past several weeks he has been hypotensive with a systolic blood pressure between 80 and 90 mmHg. Prior to several weeks ago the patient had elevated blood pressure but due to the persistent hypotension was instructed to stop taking his antihypertensive medications. The patient stated he wanted to be given the blood transfusion and again was refusing the central line. I performed multiple repeat physical examinations. The patient had very good femoral pulses bilaterally. He had no changes in his mental status. The blood was hung at 6:40 PM and the transfusion began. He will receive 2 units of packed red blood cells ordered by myself and further blood will be ordered by the admitting physician Dr. Orr. The patient will be admitted to the telemetry service in serious condition. The patient will be admitted under the care of Dr. Orr. Critical Care: Time: 70 minutes Treatments/Evaluations: Close monitoring and treatment of unstable vital signs, cardiorespiratory, and neurologic status, while maintaining tight balance of fluid, respiratory, and cardiac interventions. Time does not include performing any of the above billable procedures. Departure Diagnosis: Primary Impression: Anemia Anemia type: unspecified type Qualified Codes: D64.9 - Anemia, unspecified Additional Impressions: Prostate carcinoma Severe sepsis Condition: Serious KENISHA FELIZ MD Jan 25, 2019 14:01
[2019-01-25] MEDS ORDERED: TAMS-14 PO (14:35)
[2019-01-25] MEDS ORDERED: PANT40TA3 PO (14:35)
[2019-01-25] MEDS ORDERED: FER325 PO (14:35)
[2019-01-25] MEDS ORDERED: FINA5TAB4 PO (14:36)
[2019-01-25] MEDS ORDERED: ENZA40CA PO (14:37)
[2019-01-25] MEDS ORDERED: SENN-120 PO (14:38)
[2019-01-25] MEDS ORDERED: METO25TA4 PO (14:40)
[2019-01-25] MEDS ORDERED: MORP15TA92 PO (14:40)
[2019-01-25] MEDS ORDERED: CEFEPIME 2GM/50 ML (PMX) 50 ML IVPB STA (14:40)
[2019-01-25] MEDS ORDERED: HYDR-3980 PO (14:41)
[2019-01-25] MEDS ORDERED: VANCOMYCIN 1 GM (PMX) 250 ML IVPB ONE (15:00)
[2019-01-25] MEDS ORDERED: ACETAMINOPHEN 325 MG TAB PO PRN ×2 (17:00→18:00)
[2019-01-25] MEDS ORDERED: ONDANSETRON 4 MG INJ IV PRN (17:00)
[2019-01-25] MEDS ORDERED: morphine (ER) 15 MG TAB PO PRN (18:00)
[2019-01-25] MEDS ORDERED: SOD CHLORIDE 0.9% 1,000 ML IV STA (22:26)
[2019-01-26] VITALS (38 sets, daily range): BP systolic 74–93; BP diastolic 47–66; PULSE 93–110; RESP 9–25; Ht 177.8 cm; Wt 81.6 kg
[2019-01-26] MEDS: DEXTROSE 5%-0.45% NACL 1,000 ML IV SCH ×4 (02:17→21:02)
[2019-01-26] MEDS: PANTOPRAZOLE (EC) 40 MG TAB PO SCH (06:16)
[2019-01-26] MEDS: PIPER-TAZO 3.375 GM IV (PMX) 100 ML IVPB SCH ×3 (08:47→21:02)
[2019-01-26] MEDS: SENNA TAB PO SCH (08:47)
[2019-01-26] MEDS: TAMSULOSIN (SR) 0.4 MG CAP PO SCH (08:47)
[2019-01-26] MEDS: FINASTERIDE 5 MG TAB PO SCH (08:47)
--- NOTE | 2019-01-26 09:47 | HP ---
DATE OF ADMISSION: 01/25/2019 CHIEF COMPLAINT: Generalized weakness. HISTORY OF PRESENT ILLNESS: A 54-year-old male with widely metastatic prostate [facility], presented to Emergency Room with complaint of generalized weakness. The patient and passed past a previous history of anemia. REVIEW OF SYSTEMS: He denies chest pain or shortness of breath. No a bdominal pain. No fever, chills, nausea, or vomiting. He has a chronic indwelling Mcpherson catheter. Initial evaluation revealed hemoglobin of 4.3. The white blood cell count was 5.8 and platelet count of 115,000. Basic metabolic panel was within normal limits. Lactate level was elevated. Patient r eceived 3 units of packed RBC with repeat hemoglobin of 6.9. He was hypotensive and received empiric IV antibiotics in the Emergency Room. Preliminary blood cultures are growing gram-negative rods. PAST MEDICAL HISTORY: 1. Metastatic prostate cancer. 2. History of hypertension. 3. Chronic back pain due to bony metastasis. MEDICATIONS PRIOR TO ADMISSION: 1. Xtandi 160 mg at bedtime. 2. Flomax 0.4 mg daily. 3. Ferrous sulfate 325 mg b.i.d. 4. Lopressor 25 mg b.i.d. 5. [place] 10/325 one tablet every 6 hours as needed. 6. MS Contin 15 mg every 12 hours as needed. 7. Protonix 40 mg daily. 8. Senna 1 tablet daily. 9. Finasteride 5 mg daily. SOCIAL HISTORY: Patient lives at home with his . He denies tobacco or alcohol use. PHYSICAL EXAMINATION GENERAL: Well-developed, nourished, debilitated male who is in no apparent distress. VITAL SIGNS: Blood pressure 89/60, pulse 95, respiration 16. The patient is afebrile. HEENT: Extraocular muscles intact. Pupils are equal and reactive to light bilaterally. Sclerae are anicteric. Oropharynx is clear and moist. NECK: Supple, no JVD, no carotid bruits. LUNGS: Decreased breath sounds at bases. CARDIAC: Regular rate and rhythm. No murmurs, rubs or gallops. ABDOMEN: Soft, nontender, nondistended, normoactive bowel sounds. EXTREMITIES: Mild pedal edema. ASSESSMENT: 1. A 54-year-old male with widely metastatic prostate cancer. 2. Recurrent anemia due to bony metastasis. There is no history of hematemesis, bright red blood pe r rectum, or melena. 3. Gram-negative jeny urosepsis. 4. Chronic indwelling Mcpherson catheter. 5. Chronic debilitation. 6. Coccyx, some bilateral heel decubitus ulcers. 7. Poor prognosis. PLAN: 1. Admit to ICU, transfuse additional unit of packed RBC. Continue IV fluid hydration. 2. IV Zosyn. 3. Check final blood culture results. 4. The patient wishes to be FULL CODE. Dictated By: JING REYNOLDS/THIERRY Conf#: [id number] DID#: [id number]
[2019-01-26] MEDS ORDERED: PIPER-TAZO 3.375 GM IV (PMX) 100 ML IVPB SCH (14:00)
[2019-01-26] MEDS ORDERED: ALBUMIN HUMAN 25% 100 ML IV ONE (15:30)
[2019-01-27] VITALS (68 sets, daily range): BP systolic 78–121; BP diastolic 46–74; PULSE 96–156; RESP 11–28
[2019-01-27] MEDS: DEXTROSE 5%-0.45% NACL 1,000 ML IV SCH ×2 (05:48→21:34)
[2019-01-27] MEDS: PIPER-TAZO 3.375 GM IV (PMX) 100 ML IVPB SCH ×3 (05:49→21:31)
[2019-01-27] MEDS: PANTOPRAZOLE (EC) 40 MG TAB PO SCH (05:49)
[2019-01-27] MEDS: TAMSULOSIN (SR) 0.4 MG CAP PO SCH (09:05)
[2019-01-27] MEDS: FINASTERIDE 5 MG TAB PO SCH (09:05)
[2019-01-27] MEDS: SENNA TAB PO SCH (09:05)
[2019-01-27] MEDS ORDERED: VANCOMYCIN IV PER PHARMACY XX SCH (09:30)
--- NOTE | 2019-01-27 09:32 | PN ---
Date/Time of Note Date/Time of Note DATE: 01/27/19 TIME: 09:30 Subjective Alert and comfortable. No new complaints Objective Vitals Vital Signs Date Temp Pulse Resp B/P (MAP) Pulse Ox O2 O2 Flow FiO2 Time Delivery Rate 01/27/19 103 16 08:45 01/27/19 79/46 (57) 08:30 01/27/19 98.1 08:00 01/27/19 Nasal 2.0 08:00 Cannula 01/27/19 100 06:00 Intake and Output 01/26/19 01/26/19 01/27/19 1515:00 23:00 07:00 IntakeIntake Total 980 ml 1480 ml 960 ml OutputOutput Total 150 ml 225 ml 265 ml BalanceBalance 830 ml 1255 ml 695 ml Decreased breath sounds at bases Regular rate and rhythm Soft nontender nondistended normoactive bowel sounds Mild edema Results Result Diagram: 01/27/19 0650 01/27/19 0650 Medications Medications Current Medications Acetaminophen (Tylenol Tab) 650 mg Q4H PRN PO fever; Start 01/25/19 at 18:00 Finasteride (Proscar) 5 mg DAILY PO Last administered on 01/27/19at 09:05; Admin Dose 5 MG; Start 01/26/19 at 09:00 Acetaminophen/ Hydrocodone Bitart ([place] ()) 1 tab Q6H PRN PO MODERATE PAIN LEVEL 4-6; Start 01/25/19 at 18:00 Morphine Sulfate (Ms Contin (Er)) 15 mg Q12 PRN PO SEVERE PAIN LEVEL 7-10; Start 01/25/19 at 18:00 Pantoprazole (Protonix Tab) 40 mg DAILY@0600 PO Last administered on 01/27/19at 05:49; Admin Dose 40 MG; Start 01/26/19 at 06:00 Senna (Senokot) 1 tab DAILY PO Last administered on 01/27/19at 09:05; Admin Dose 1 TAB; Start 01/26/19 at 09:00 Tamsulosin HCl (Flomax) 0.4 mg DAILY PO Last administered on 01/27/19at 09:05; Admin Dose 0.4 MG; Start 01/26/19 at 09:00 Miscellaneous Information DOSE = 160mg = 4 X 4... QHS XX Last administered on 01/26/19at 21:55; Admin Dose 160 MG; Start 01/26/19 at 21:00 Dextrose/Sodium Chloride 1,000 ml @ 100 mls/hr Q10H IV Last administered on 01/27/19 05:48; Admin Dose 100 MLS/HR; Start 01/26/19 at 00:30 Piperacillin Sod/ Tazobactam Sod 100 ml @ 200 mls/hr Q8 IVPB Last administered on 01/27/19 05:49; Admin Dose 200 MLS/HR; Start 01/26/19 at 08:30 VTE Prophylaxis Risk score (from Ns)>0 risk: 7 SCD applied (from [facility] [place]): Yes Lines/Catheters IV Catheter Type: Saline Lock Mckeon in Place: Yes Cont'd mckeon catheter reason: terminal illness/intractable pain Assessment/Plan Assessment/Plan 54-year-old male with gram-positive cocci UTI Gram-negative jeny urosepsis Profound anemia, stable post transfusion Widely metastatic prostate cancer Multiple decubitus ulcers Poor prognosis. Patient wishes to be full code Continue IV Zosyn Add IV vancomycin Check final culture results Continue ICU monitoring JING BRICENO MD Jan 27, 2019 09:32
[2019-01-27] MEDS ORDERED: VANCOMYCIN HCL 1.5 GM in SOD CHLORIDE 0.9% 250 ML IVPB SCH ×2 (11:00→23:00)
[2019-01-27] MEDS: BALSAM PERU/CASTOR OIL 60 GM TUBE TOP SCH (21:31)
[2019-01-28] VITALS (26 sets, daily range): BP systolic 102–119; BP diastolic 58–73; PULSE 93–111; RESP 10–27
[2019-01-28] MEDS: PANTOPRAZOLE (EC) 40 MG TAB PO SCH (05:58)
[2019-01-28] MEDS: PIPER-TAZO 3.375 GM IV (PMX) 100 ML IVPB SCH (05:58)
[2019-01-28] MEDS: SENNA TAB PO SCH (07:40)
[2019-01-28] MEDS: FINASTERIDE 5 MG TAB PO SCH (08:52)
[2019-01-28] MEDS: TAMSULOSIN (SR) 0.4 MG CAP PO SCH (08:52)
[2019-01-28] MEDS: BALSAM PERU/CASTOR OIL 60 GM TUBE TOP SCH ×2 (08:53→20:36)
[2019-01-28] MEDS: COLLAGENASE 5 GM (UD JAR) TOP SCH (08:53)
[2019-01-28] MEDS: LEVOFLOXACIN 500 MG TAB PO SCH (10:52)
[2019-01-28] MEDS: LINEZOLID 600 MG/300 ML (PMX) 300 ML IVPB SCH ×2 (10:52→20:36)
[2019-01-28] MEDS: DEXTROSE 5%-0.45% NACL 1,000 ML IV SCH ×2 (10:53→21:15)
--- NOTE | 2019-01-28 12:39 | CONS ---
Assessment/Plan Assessment/Plan Hospital Course (Demo Recall) 1.Sepsis 2/2 to VRE/S.aureus uti and E.coli bacteremia 2. metastatic prostate ca 3. chronic back pain 4. thrombocytopenia R: cont. current antimicrobials await final ucx; query if e.coli will be isolated check ck will coordinate with pharmacy regarding dapto availability follow plts closely serial lactic and cbc further eval and documentation to follow shortly Consultation Date/Type/Reason Admit Date/Time Jan 26, 2019 at 09:33 Date of Consultation: Jan 28, 2019 Type of Consult ID Reason for Consultation ABX RECS; SEPSIS Requesting Provider: JING BRICENO MD Date/Time of Note DATE: 01/28/19 TIME: 12:34 Hx of Present Illness A very sad case of 54 yo AA male with metastatic prostate CA, htn, chronic back pain, admitted with gnr sepsis and VRE UTI. Past Medical History Home Meds Reported Medications Hydrocodone/Acetaminophen ([place] 10-325 Tablet) 1 Each Tablet, 1 EACH PO Q6 PRN for PAIN, TAB 01/25/19 Morphine Sulfate* (Ms Contin*) 15 Mg Tablet.sa, 15 MG PO Q12 PRN for PAIN, TAB 01/25/19 Metoprolol Tartrate* (Lopressor*) 25 Mg Tablet, 25 MG PO BID, #60 TAB if blood pressure is 110 or higher 01/25/19 Sennosides* (Senna Lax*) 8.6 Mg Tablet, 1 TAB PO DAILY, TAB 01/25/19 Enzalutamide (XTANDI) 40 Mg Capsule, 160 MG PO QHS, CAP pt has own med 01/25/19 Finasteride* (Finasteride*) 5 Mg Tablet, 5 MG PO DAILY, TAB 01/25/19 Pantoprazole* (Protonix*) 40 Mg Tablet.dr, 40 MG PO DAILY, TAB 01/25/19 Ferrous Sulfate* (Ferrous Sulfate*) 325 Mg Tabec, 325 MG PO BID, TAB 01/25/19 Tamsulosin Hcl* (Flomax*) 0.4 Mg Cap.er.24h, 0.4 MG PO DAILY, CAP 01/25/19 Discontinued Reported Medications Enzalutamide (XTANDI) 40 Mg Capsule, 160 MG PO, CAP 12/16/18 Discontinued Scripts Levofloxacin* (Levaquin*) 500 Mg Tablet, 500 MG PO DAILY for 7 Days, TAB Prov:JING BRICENO MD 12/16/18 Finasteride* (Finasteride*) 5 Mg Tablet, 5 MG PO DAILY for 30 Days, TAB Prov:JING BRICENO MD 12/16/18 Hydrocodone Bit-Acetaminophen (Hydrocodone Bit-APAP) 5-325MG Tablet, 1 TAB PO Q6H PRN for PAIN LEVEL 1-3 for 30 Days, TAB Prov:JING BRICENO MD 12/16/18 Gabapentin* (Gabapentin*) 300 Mg Capsule, 300 MG PO BID for 30 Days, CAP Prov:JING BRICENO MD 12/16/18 Metoprolol Tartrate* (Lopressor*) 25 Mg Tab, 25 MG PO BID for 30 Days, TAB Prov:JING BRICENO MD 12/16/18 Medications Current Medications Acetaminophen (Tylenol Tab) 650 mg Q4H PRN PO fever; Start 01/25/19 at 18:00 Finasteride (Proscar) 5 mg DAILY PO Last administered on 01/28/19at 08:52; Admin Dose 5 MG; Start 01/26/19 at 09:00 Acetaminophen/ Hydrocodone Bitart ([place] (10/325)) 1 tab Q6H PRN PO MODERATE PAIN LEVEL 4-6; Start 01/25/19 at 18:00 Morphine Sulfate (Ms Contin (Er)) 15 mg Q12 PRN PO SEVERE PAIN LEVEL 7-10; Start 01/25/19 at 18:00 Pantoprazole (Protonix Tab) 40 mg DAILY@0600 PO Last administered on 01/28/19at 05:58; Admin Dose 40 MG; Start 01/26/19 at 06:00 Senna (Senokot) 1 tab DAILY PO Last administered on 01/27/19at 09:05; Admin Dose 1 TAB; Start 01/26/19 at 09:00 Tamsulosin HCl (Flomax) 0.4 mg DAILY PO Last administered on 01/28/19at 08:52; Admin Dose 0.4 MG; Start 01/26/19 at 09:00 Miscellaneous Information DOSE = 160mg = 4 X 4... QHS XX Last administered on 01/27/19at 22:13; Admin Dose 160 MG; Start 01/26/19 at 21:00 Dextrose/Sodium Chloride 1,000 ml @ 100 mls/hr Q10H IV Last administered on 01/28/19at 10:53; Admin Dose 100 MLS/HR; Start 01/26/19 at 00:30 Collagenase (Santyl) 1 applic DAILY TOP Last administered on 01/28/19at 08:53; Admin Dose 1 APPLIC; Start 01/28/19 at 09:00 Linezolid 300 ml @ 300 mls/hr Q12 IVPB Last administered on 01/28/19at 10:52; Admin Dose 300 MLS/HR; Start 01/28/19 at 10:00 Levofloxacin (Levaquin) 500 mg DAILY@06 PO Last administered on 01/28/19at 10:52; Admin Dose 500 MG; Start 01/28/19 at 10:30 Allergies: Coded Allergies: No Known Allergy (Unverified , 01/25/19) Past Surgical History Past Surgical Hx: no surgical history Social History Smoking Status: Never smoker Exam/Review of Systems Exam Vitals Vital Signs Date Temp Pulse Resp B/P (MAP) Pulse Ox O2 O2 Flow FiO2 Time Delivery Rate 01/28/19 97 12 104/60 99 10:00 (75) 01/28/19 97.9 Nasal 2.0 08:00 Cannula 01/27/19 27 15:57 Intake and Output 01/27/19 01/27/19 01/28/19 1515:00 23:00 07:00 IntakeIntake Total 1168 ml 1266.333 ml 1066.668 ml OutputOutput Total 164 ml 365 ml 355 ml BalanceBalance 1004 ml 901.333 ml 711.668 ml Results Result Diagram: 01/28/19 0548 01/28/19 0545 Results 24hrs Laboratory Tests Test 01/28/19 05:20 01/28/19 05:45 01/28/19 05:48 Lab Scanned Report BLOOD TRANSFUSION Sodium Level 130 L Potassium Level 3.2 L Chloride Level 104 Carbon Dioxide Level 18 L Anion Gap 8 Blood Urea Nitrogen 10 Creatinine 0.37 L Est Glomerular Filtrat > 60 Rate mL/min Glucose Level 91 Calcium Level 8.0 L White Blood Count 4.1 L Red Blood Count 2.50 L Hemoglobin 7.5 L Hematocrit 23.2 L Mean Corpuscular Volume 92.8 Mean Corpuscular Hemoglobin 30.0 Mean Corpuscular 32.3 Hemoglobin Concent Red Cell Distribution Width 18.2 H Platelet Count 96 L Mean Platelet Volume 9.4 Immature Granulocytes % 2.700 H Neutrophils % 85.3 H Lymphocytes % 5.8 L Monocytes % 5.8 Eosinophils % 0.2 Basophils % 0.2 Nucleated Red Blood Cells % 0.0 Immature Granulocytes # 0.110 H Neutrophils # 3.5 Lymphocytes # 0.2 L Monocytes # 0.2 L Eosinophils # 0.0 Basophils # 0.0 Nucleated Red Blood Cells # 0.0 Medications Medication Current Medications Acetaminophen (Tylenol Tab) 650 mg Q4H PRN PO fever; Start 01/25/19 at 18:00 Finasteride (Proscar) 5 mg DAILY PO Last administered on 01/28/19 08:52; Admin Dose 5 MG; Start 01/26/19 at 09:00 Acetaminophen/ Hydrocodone Bitart ([place] (10/325)) 1 tab Q6H PRN PO MODERATE PAIN LEVEL 4-6; Start 01/25/19 at 18:00 Morphine Sulfate (Ms Contin (Er)) 15 mg Q12 PRN PO SEVERE PAIN LEVEL 7-10; Start 01/25/19 at 18:00 Pantoprazole (Protonix Tab) 40 mg DAILY@0600 PO Last administered on 01/28/19at 05:58; Admin Dose 40 MG; Start 01/26/19 at 06:00 Senna (Senokot) 1 tab DAILY PO Last administered on 01/27/19 09:05; Admin Dose 1 TAB; Start 01/26/19 at 09:00 Tamsulosin HCl (Flomax) 0.4 mg DAILY PO Last administered on 01/28/19 08:52; Admin Dose 0.4 MG; Start 01/26/19 at 09:00 Miscellaneous Information DOSE = 160mg = 4 X 4... QHS XX Last administered on 01/27/19 22:13; Admin Dose 160 MG; Start 01/26/19 at 21:00 Dextrose/Sodium Chloride 1,000 ml @ 100 mls/hr Q10H IV Last administered on 01/28/19 10:53; Admin Dose 100 MLS/HR; Start 01/26/19 at 00:30 Collagenase (Santyl) 1 applic DAILY TOP Last administered on 01/28/19 08:53; Admin Dose 1 APPLIC; Start 01/28/19 at 09:00 Linezolid 300 ml @ 300 mls/hr Q12 IVPB Last administered on 01/28/19at 10:52; Admin Dose 300 MLS/HR; Start 01/28/19 at 10:00 Levofloxacin (Levaquin) 500 mg DAILY@06 PO Last administered on 01/28/19at 10:52; Admin Dose 500 MG; Start 01/28/19 at 10:30 JULY BRENNAN MD Jan 28, 2019 12:39
[2019-01-29] VITALS (22 sets, daily range): BP systolic 78–119; BP diastolic 51–74; PULSE 87–102; RESP 11–20
[2019-01-29] MEDS: HYDROCODONE/APAP (10/325) TAB PO PRN ×2 (02:01→13:30)
[2019-01-29] MEDS: LEVOFLOXACIN 500 MG TAB PO SCH (05:28)
[2019-01-29] MEDS: PANTOPRAZOLE (EC) 40 MG TAB PO SCH (05:28)
--- NOTE | 2019-01-29 08:42 | CONS ---
Assessment/Plan Assessment/Plan Hospital Course (Demo Recall) 1.Sepsis 2/2 to VRE/S.aureus uti and E.coli bacteremia 2. metastatic prostate ca 3. chronic back pain 4. thrombocytopenia R: cont. current antimicrobials await final ucx; query if e.coli will be isolated ordered cbc and ck coordinated with pharmacy will be in approx mid morning for further eval. ty Consultation Date/Type/Reason Admit Date/Time Jan 26, 2019 at 09:33 Initial Consult Date 01/28/19 Type of Consult ID Requesting Provider: JING BRICENO MD Date/Time of Note DATE: 01/29/19 TIME: 08:40 Exam/Review of Systems Exam Vitals Vital Signs Date Temp Pulse Resp B/P (MAP) Pulse Ox O2 O2 Flow FiO2 Time Delivery Rate 01/29/19 88 08:07 01/29/19 97.6 16 96/57 (70) 98 08:05 01/29/19 Room Air 06:00 01/28/19 2.0 08:00 01/27/19 27 15:57 Intake and Output 01/28/19 01/28/19 01/29/19 1515:00 23:00 07:00 IntakeIntake Total 1500 ml 700 ml 100 ml OutputOutput Total 480 ml 370 ml 220 ml BalanceBalance 1020 ml 330 ml -120 ml Results Result Diagram: 01/28/19 0548 01/28/19 0545 Medications Medication Current Medications Acetaminophen (Tylenol Tab) 650 mg Q4H PRN PO fever; Start 01/25/19 at 18:00 Finasteride (Proscar) 5 mg DAILY PO Last administered on 01/28/19at 08:52; Admin Dose 5 MG; Start 01/26/19 at 09:00 Acetaminophen/ Hydrocodone Bitart ([place] (10/325)) 1 tab Q6H PRN PO MODERATE PAIN LEVEL 4-6 Last administered on 01/29/19at 02:01; Admin Dose 1 TAB; Start 01/25/19 at 18:00 Morphine Sulfate (Ms Contin (Er)) 15 mg Q12 PRN PO SEVERE PAIN LEVEL 7-10; Start 01/25/19 at 18:00 Pantoprazole (Protonix Tab) 40 mg DAILY@0600 PO Last administered on 01/29/19at 05:28; Admin Dose 40 MG; Start 01/26/19 at 06:00 Senna (Senokot) 1 tab DAILY PO Last administered on 01/27/19 09:05; Admin Dose 1 TAB; Start 01/26/19 at 09:00 Tamsulosin HCl (Flomax) 0.4 mg DAILY PO Last administered on 01/28/19 08:52; Admin Dose 0.4 MG; Start 01/26/19 at 09:00 Miscellaneous Information DOSE = 160mg = 4 X 4... QHS XX Last administered on 01/28/19 21:08; Admin Dose 160 MG; Start 01/26/19 at 21:00 Collagenase (Santyl) 1 applic DAILY TOP Last administered on 01/28/19 08:53; Admin Dose 1 APPLIC; Start 01/28/19 at 09:00 Linezolid 300 ml @ 300 mls/hr Q12 IVPB Last administered on 01/28/19 20:36; Admin Dose 300 MLS/HR; Start 01/28/19 at 10:00 Levofloxacin (Levaquin) 500 mg DAILY@06 PO Last administered on 01/29/19 05:28; Admin Dose 500 MG; Start 01/28/19 at 10:30 JULY BRENNAN MD Jan 29, 2019 08:42
[2019-01-29] MEDS: LINEZOLID 600 MG/300 ML (PMX) 300 ML IVPB SCH ×2 (08:48→22:43)
[2019-01-29] MEDS: TAMSULOSIN (SR) 0.4 MG CAP PO SCH (08:52)
[2019-01-29] MEDS: BALSAM PERU/CASTOR OIL 60 GM TUBE TOP SCH ×2 (08:59→21:27)
[2019-01-29] MEDS: FINASTERIDE 5 MG TAB PO SCH (08:59)
[2019-01-29] MEDS: SENNA TAB PO SCH (08:59)
[2019-01-29] MEDS: COLLAGENASE 5 GM (UD JAR) TOP SCH (08:59)
[2019-01-29] MEDS ORDERED: ONDANSETRON 4 MG INJ IV PRN (09:30)
[2019-01-29] MEDS ORDERED: POTASSIUM CHLORIDE (SR) 20 MEQ TAB PO STA ×2 (12:27→20:46)
[2019-01-29] MEDS: SOD CHLORIDE 0.9% 1,000 ML IV SCH ×2 (13:28→22:45)
[2019-01-29] MEDS ORDERED: SOD CHLORIDE 0.9% 1,000 ML IV ONE ×3 (16:30→23:30)
--- NOTE | 2019-01-29 16:33 | PN ---
Date/Time of Note Date/Time of Note DATE: 01/29/19 TIME: 16:32 Assessment/Plan VTE Prophylaxis Risk score (from Ns)>0 risk: 13 SCD applied (from [facility] [place]): Yes Pharmacological prophylaxis: NA/contraindicated Pharm contraindication: bleeding Lines/Catheters IV Catheter Type (from Nrsg): Mid Line Urinary Cath still in place: Yes Reason Cath still needed: terminal illness/intractable pain Assessment/Plan Hospital Course # Severe sepsis due to complicated UTI with MRSA and VRE , E coli bacteremia - follow up with ID recs , currently on Levaquin and Linezolid - IVF boluses PRN for MAP < 65 , #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 , # 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 , s/p transfusion, HH daily and transfuse if Hb < 7 # Decubitus ulcers, seen by wound care , recommended surgical consult , will DW Dr Us although poor surgical candidate # Poor prognosis, widely metastatic prostate CA , paraplegia , multiple decubitus ulcers , sepsis with multiple MDR bacteria anemia of malignancy , he remains full code , palliative consult #PPX: PPI , SCDs, Problems: (1) Prostate cancer metastatic to bone (2) Severe sepsis Status: Acute (3) Vancomycin resistant enterococcus culture positive (4) MRSA (methicillin resistant staph aureus) culture positive (5) Complicated UTI (urinary tract infection) (6) Decubitus ulcers (7) Paraplegic spinal paralysis (8) E coli bacteremia (9) Poor prognosis Result Diagram: 01/29/19 1019 01/29/19 1019 Results 24hrs Laboratory Tests Test 01/29/19 10:19 White Blood Count 3.3 L Red Blood Count 2.54 L Hemoglobin 7.7 L Hematocrit 23.6 L Mean Corpuscular Volume 92.9 Mean Corpuscular Hemoglobin 30.3 Mean Corpuscular Hemoglobin Concent 32.6 Red Cell Distribution Width 17.8 H Platelet Count 82 L Mean Platelet Volume 10.0 Immature Granulocytes % 1.500 H Neutrophils % 87.4 H Lymphocytes % 6.0 L Monocytes % 4.8 Eosinophils % 0.0 Basophils % 0.3 Nucleated Red Blood Cells % 0.0 Immature Granulocytes # 0.050 H Neutrophils # 2.9 Lymphocytes # 0.2 L Monocytes # 0.2 L Eosinophils # 0.0 Basophils # 0.0 Nucleated Red Blood Cells # 0.0 Sodium Level 130 L Potassium Level 3.0 L Chloride Level 102 Carbon Dioxide Level 16 L Anion Gap 12 Blood Urea Nitrogen 10 Creatinine 0.36 L Est Glomerular Filtrat Rate mL/min > 60 Glucose Level 117 Lactic Acid Level 4.9 *H Calcium Level 7.7 L Magnesium Level 1.7 Total Bilirubin 0.4 Direct Bilirubin 0.00 Indirect Bilirubin 0.4 Aspartate Amino Transf (AST/SGOT) < 8 L Alanine Aminotransferase (ALT/SGPT) 14 Alkaline Phosphatase 224 H Creatine Kinase < 20 L Total Protein 4.1 L Albumin 1.6 L Globulin 2.50 Albumin/Globulin Ratio 0.64 Subjective 24 Hr Interval Summary Free Text/Dictation very weak and debilitated , numb in lower extremities which is not new Exam/Review of Systems Exam Vitals Vital Signs Date Temp Pulse Resp B/P (MAP) Pulse Ox O2 O2 Flow FiO2 Time Delivery Rate 01/29/19 99 16:06 01/29/19 97.4 17 97 15:16 01/29/19 Room Air 06:00 01/28/19 2.0 08:00 01/27/19 27 15:57 Intake and Output 01/28/19 01/28/19 01/29/19 1515:00 23:00 07:00 IntakeIntake Total 1500 ml 700 ml 100 ml OutputOutput Total 480 ml 370 ml 220 ml BalanceBalance 1020 ml 330 ml -120 ml Constitutional: alert, frail Head: normocephalic, atraumatic Eyes: nl conjunctiva, EOMI, PERRL Neck: supple, non-tender Respiratory: clear to auscultation, normal air movement Cardiovascular: regular rate and rhythm, nl pulses Gastrointestinal: soft, non-tender Extremities: edema Neurological: FOOD AND BEVERAGE CHECKER II-XII intact, focal weakness (bilat LE paraplegic ), numbness (bilat LE, ) Results Results 24hrs Laboratory Tests Test 01/29/19 10:19 White Blood Count 3.3 L Red Blood Count 2.54 L Hemoglobin 7.7 L Hematocrit 23.6 L Mean Corpuscular Volume 92.9 Mean Corpuscular Hemoglobin 30.3 Mean Corpuscular Hemoglobin Concent 32.6 Red Cell Distribution Width 17.8 H Platelet Count 82 L Mean Platelet Volume 10.0 Immature Granulocytes % 1.500 H Neutrophils % 87.4 H Lymphocytes % 6.0 L Monocytes % 4.8 Eosinophils % 0.0 Basophils % 0.3 Nucleated Red Blood Cells % 0.0 Immature Granulocytes # 0.050 H Neutrophils # 2.9 Lymphocytes # 0.2 L Monocytes # 0.2 L Eosinophils # 0.0 Basophils # 0.0 Nucleated Red Blood Cells # 0.0 Sodium Level 130 L Potassium Level 3.0 L Chloride Level 102 Carbon Dioxide Level 16 L Anion Gap 12 Blood Urea Nitrogen 10 Creatinine 0.36 L Est Glomerular Filtrat Rate mL/min > 60 Glucose Level 117 Lactic Acid Level 4.9 *H Calcium Level 7.7 L Magnesium Level 1.7 Total Bilirubin 0.4 Direct Bilirubin 0.00 Indirect Bilirubin 0.4 Aspartate Amino Transf (AST/SGOT) < 8 L Alanine Aminotransferase (ALT/SGPT) 14 Alkaline Phosphatase 224 H Creatine Kinase < 20 L Total Protein 4.1 L Albumin 1.6 L Globulin 2.50 Albumin/Globulin Ratio 0.64 Medications Medication Current Medications Acetaminophen (Tylenol Tab) 650 mg Q4H PRN PO fever; Start 01/25/19 at 18:00 Finasteride (Proscar) 5 mg DAILY PO Last administered on 01/29/19at 08:59; Admin Dose 5 MG; Start 01/26/19 at 09:00 Acetaminophen/ Hydrocodone Bitart ([place] (10/325)) 1 tab Q6H PRN PO MODERATE PAIN LEVEL 4-6 Last administered on 01/29/19at 13:30; Admin Dose 1 TAB; Start 01/25/19 at 18:00 Morphine Sulfate (Ms Contin (Er)) 15 mg Q12 PRN PO SEVERE PAIN LEVEL 7-10; Start 01/25/19 at 18:00 Pantoprazole (Protonix Tab) 40 mg DAILY@0600 PO Last administered on 01/29/19at 05:28; Admin Dose 40 MG; Start 01/26/19 at 06:00 Senna (Senokot) 1 tab DAILY PO Last administered on 01/29/19at 08:59; Admin Dose 1 TAB; Start 01/26/19 at 09:00 Tamsulosin HCl (Flomax) 0.4 mg DAILY PO Last administered on 01/29/19at 08:52; Admin Dose 0.4 MG; Start 01/26/19 at 09:00 Miscellaneous Information DOSE = 160mg = 4 X 4... QHS XX Last administered on 01/28/19 21:08; Admin Dose 160 MG; Start 01/26/19 at 21:00 Linezolid 300 ml @ 300 mls/hr Q12 IVPB Last administered on 01/29/19 08:48; Admin Dose 300 MLS/HR; Start 01/28/19 at 10:00 Levofloxacin (Levaquin) 500 mg DAILY@06 PO Last administered on 01/29/19 05:28; Admin Dose 500 MG; Start 01/28/19 at 10:30 Ondansetron HCl (Zofran Inj) 4 mg Q4H PRN IV NAUSEA AND/OR VOMITING Last administered on 01/29/19 09:40; Admin Dose 4 MG; Start 01/29/19 at 09:30 Sodium Chloride 1,000 ml @ 100 mls/hr Q10H IV Last administered on 01/29/19 13:28; Admin Dose 100 MLS/HR; Start 01/29/19 at 12:30 Sodium Hypochlorite (Dakins Diluted ()) 1 applic BID TP ; Start 01/29/19 at 21:00 HAFSA CLEMONS MD Jan 29, 2019 16:33
--- NOTE | 2019-01-29 18:13 | CONS ---
Assessment/Plan Assessment/Plan Hospital Course (Demo Recall) 1.Sepsis 2/2 to VRE/S.aureus uti and E.coli bacteremia 2. metastatic prostate ca 3. chronic back pain 4. thrombocytopenia R: cont. current antimicrobials ordered cbc and ck coordinated with pharmacy Consultation Date/Type/Reason Admit Date/Time Jan 26, 2019 at 09:33 Initial Consult Date 01/28/19 Type of Consult ID Requesting Provider: JING BRICENO MD Date/Time of Note DATE: 01/29/19 TIME: 18:12 Exam/Review of Systems Exam Vitals Vital Signs Date Temp Pulse Resp B/P (MAP) Pulse Ox O2 O2 Flow FiO2 Time Delivery Rate 01/29/19 93 82/53 (63) 17:58 01/29/19 97.4 17 97 15:16 01/29/19 Room Air 06:00 01/28/19 2.0 08:00 01/27/19 27 15:57 Intake and Output 01/28/19 01/28/19 01/29/19 1515:00 23:00 07:00 IntakeIntake Total 1500 ml 700 ml 100 ml OutputOutput Total 480 ml 370 ml 220 ml BalanceBalance 1020 ml 330 ml -120 ml Constitutional: alert, oriented Head: normocephalic, atraumatic Eyes: EOMI Respiratory: clear to auscultation Cardiovascular: regular rate and rhythm Gastrointestinal: soft Neurological: WOOD GRINDER II-XII intact Results Result Diagram: 01/29/19 1019 01/29/19 1019 Results 24hrs Laboratory Tests Test 01/29/19 10:19 White Blood Count 3.3 L Red Blood Count 2.54 L Hemoglobin 7.7 L Hematocrit 23.6 L Mean Corpuscular Volume 92.9 Mean Corpuscular Hemoglobin 30.3 Mean Corpuscular Hemoglobin Concent 32.6 Red Cell Distribution Width 17.8 H Platelet Count 82 L Mean Platelet Volume 10.0 Immature Granulocytes % 1.500 H Neutrophils % 87.4 H Lymphocytes % 6.0 L Monocytes % 4.8 Eosinophils % 0.0 Basophils % 0.3 Nucleated Red Blood Cells % 0.0 Immature Granulocytes # 0.050 H Neutrophils # 2.9 Lymphocytes # 0.2 L Monocytes # 0.2 L Eosinophils # 0.0 Basophils # 0.0 Nucleated Red Blood Cells # 0.0 Sodium Level 130 L Potassium Level 3.0 L Chloride Level 102 Carbon Dioxide Level 16 L Anion Gap 12 Blood Urea Nitrogen 10 Creatinine 0.36 L Est Glomerular Filtrat Rate mL/min > 60 Glucose Level 117 Lactic Acid Level 4.9 *H Calcium Level 7.7 L Magnesium Level 1.7 Total Bilirubin 0.4 Direct Bilirubin 0.00 Indirect Bilirubin 0.4 Aspartate Amino Transf (AST/SGOT) < 8 L Alanine Aminotransferase (ALT/SGPT) 14 Alkaline Phosphatase 224 H Creatine Kinase < 20 L Total Protein 4.1 L Albumin 1.6 L Globulin 2.50 Albumin/Globulin Ratio 0.64 Medications Medication Current Medications Acetaminophen (Tylenol Tab) 650 mg Q4H PRN PO fever; Start 01/25/19 at 18:00 Finasteride (Proscar) 5 mg DAILY PO Last administered on 01/29/19 08:59; Admin Dose 5 MG; Start 01/26/19 at 09:00 Acetaminophen/ Hydrocodone Bitart ([place] (10/325)) 1 tab Q6H PRN PO MODERATE PAIN LEVEL 4-6 Last administered on 01/29/19 13:30; Admin Dose 1 TAB; Start 01/25/19 at 18:00 Morphine Sulfate (Ms Contin (Er)) 15 mg Q12 PRN PO SEVERE PAIN LEVEL 7-10; Start 01/25/19 at 18:00 Pantoprazole (Protonix Tab) 40 mg DAILY@0600 PO Last administered on 01/29/19 05:28; Admin Dose 40 MG; Start 01/26/19 at 06:00 Senna (Senokot) 1 tab DAILY PO Last administered on 01/29/19 08:59; Admin Dose 1 TAB; Start 01/26/19 at 09:00 Tamsulosin HCl (Flomax) 0.4 mg DAILY PO Last administered on 01/29/19 08:52; Admin Dose 0.4 MG; Start 01/26/19 at 09:00 Miscellaneous Information DOSE = 160mg = 4 X 4... QHS XX Last administered on 01/28/19 21:08; Admin Dose 160 MG; Start 01/26/19 at 21:00 Linezolid 300 ml @ 300 mls/hr Q12 IVPB Last administered on 01/29/19 08:48; Admin Dose 300 MLS/HR; Start 01/28/19 at 10:00 Levofloxacin (Levaquin) 500 mg DAILY@06 PO Last administered on 01/29/19 05:28; Admin Dose 500 MG; Start 01/28/19 at 10:30 Ondansetron HCl (Zofran Inj) 4 mg Q4H PRN IV NAUSEA AND/OR VOMITING Last administered on 01/29/19at 09:40; Admin Dose 4 MG; Start 01/29/19 at 09:30 Sodium Chloride 1,000 ml @ 100 mls/hr Q10H IV Last administered on 01/29/19at 13:28; Admin Dose 100 MLS/HR; Start 01/29/19 at 12:30 Sodium Hypochlorite (Dakins Diluted ()) 1 applic BID TP ; Start 01/29/19 at 21:00 JULY BRENNAN MD Jan 29, 2019 18:13
[2019-01-29] MEDS ORDERED: SOD CHLORIDE 0.9% 500 ML IV ONE (18:30)
[2019-01-29] MEDS: DAKINS 0.0125%(1/40) 473 ML SOLUTION TP SCH (21:31)
[2019-01-30] VITALS (47 sets, daily range): BP systolic 70–95; BP diastolic 51–72; PULSE 82–103; RESP 11–21
[2019-01-30] MEDS: SOD CHLORIDE 0.9% 1,000 ML IV SCH ×2 (02:01→04:41)
[2019-01-30] MEDS: MIDODRINE 5 MG TAB PO SCH ×4 (02:01→16:40)
--- NOTE | 2019-01-30 03:34 | EN ---
Date/Time of Note Date/Time of Note DATE: 01/30/19 TIME: 03:32 Event Note Medicine Medicine Event Note COOK MESS note COOK MESS called as patient noted to be hypotensive and unresponsive by RN COOK MESS called at approx [phone] Patient seen and examined at the bedside. Patient's blood pressures were noted to be in the 70s by the nurses. Patient was getting fluids for his low blood pressures. When he was being turned to be bathed patient had an episode of bradycardia down to the 30s which was noted on telemetry. He was noted to be bradycardic for approximately 2 minutes. He went unresponsive and then slowly regained consciousness. Upon my arrival at the bedside the patient was awake but he was slow to respond. The nurse did state that while he is slow this is slower than usual. Patient's fluids were continued and during the COOK MESS his blood pressure did improve to 90s. He was noted to be slightly tachypneic. ABG was ordered which showed a pH of 7.2 a CO2 of 42 09/20/1946 and a bicarb of 16. Patient is currently being treated for urinary tract infection. Patient also has metastatic disease. He denied any chest pain. Vitals: BP 91/50/heart rate 97/temperature SPO2 98% on 3 L General: Patient awake and during the COOK MESS became more responsive and he was looking around the room CVS: Initially sinus bradycardia on telemetry but now currently normal sinus rhythm Lungs: Diminished breath sounds bilaterally Neuro: Initially unresponsive but now slowly back to his baseline. He is awake and is able to answer questions slowly, hand reverser equal in bilateral upper extremities no facial droop noted This is a 54-year-old male being transferred to the ICU floor for: #1 symptomatic bradycardia: Possibly secondary to underlying severe sepsis, versus vasovagal. Patient's heart rate is currently normal sinus rhythm. He denied any chest pain. Continue telemetry monitoring in the ICU. Trend cardiac enzymes #2 acute respiratory failure: Likely mixed picture with metabolic acidosis and respiratory acidosis. At the current time we will put the patient on BiPAP to provide further support. Continue treating underlying infection. #3 severe sepsis: Albumin 25% 100 mL x 2, will check CBC BMP lactic acid. Continue antibiotics. Will transfer to ICU for further care. Patient may need pressor support. Greater than 35 minutes critical care time was spent on the care management this patient. We will transfer the patient to the ICU, order is in place. I have asked the nurse to contact the primary physician in regards to any further management. RAY DUTTA Jan 30, 2019 03:34
[2019-01-30] MEDS: ALBUMIN HUMAN 25% 100 ML IV SCH ×2 (04:28→05:04)
[2019-01-30] MEDS: PANTOPRAZOLE (EC) 40 MG TAB PO SCH (05:04)
[2019-01-30] MEDS: LEVOFLOXACIN 500 MG TAB PO SCH (05:04)
[2019-01-30] MEDS: LINEZOLID 600 MG/300 ML (PMX) 300 ML IVPB SCH ×2 (08:35→22:10)
[2019-01-30] MEDS: TAMSULOSIN (SR) 0.4 MG CAP PO SCH (08:41)
[2019-01-30] MEDS: FINASTERIDE 5 MG TAB PO SCH (08:42)
[2019-01-30] MEDS: SENNA TAB PO SCH (08:42)
[2019-01-30] MEDS: BALSAM PERU/CASTOR OIL 60 GM TUBE TOP SCH ×2 (09:00→21:40)
[2019-01-30] MEDS: DAKINS 0.0125%(1/40) 473 ML SOLUTION TP SCH ×2 (09:00→22:48)
--- NOTE | 2019-01-30 09:48 | CONS ---
Assessment/Plan Assessment/Plan Assessment/Plan (Daily) Chest x-ray showing pulmonary edema with significant cardiomegaly. Assessment and recommendations; 1. Patient with history of metastatic prostate cancer admitted for UTI with sepsis, currently on appropriate antimicrobial regimen. 2. Hypotension, likely from underlying cardiomyopathy. 3. Anemia and severe thrombocytopenia. 4. Mild hyponatremia. 5. Mild metabolic acidosis. Continue current supportive care. Patient may require pressor support. Obtain follow-up chest x-ray 24 hours. Prognosis appears very poor. Consultation Date/Type/Reason Admit Date/Time Jan 26, 2019 at 09:33 Date of Consultation: Jan 30, 2019 Type of Consult Pulmonary/critical care Patient is a 54-year-old male who was admitted to the hospital with complaints of generalized weakness. Patient decompensated last night with hypotension r equiring transfer to ICU. Patient however so far has not required any pressor support. By the time I saw him, patient is on BiPAP and is completely awake and alert. According to him shortness of breath is improving. He denies any fever, chills, any nausea vomiting or any abdominal pain. Past medical history; 1. Widely metastatic prostate cancer with paraplegia. 2. Likely underlying cardiomyopathy with congestive heart failure. 3. Chronic anemia and thrombocytopenia. Medications; reviewed. Allergies; none. Social history; noncontributory. Family history; noncontributory. Occupational history; patient is on disability. Review of systems; denies any headache, seizures. Any chest pain. Angina. Coughing or wheezing. Any sputum production or hemoptysis. Shortness of breath has improved. Denies any abdominal pain, nausea vomiting. Complains of chronic constipation. Complains of chronic back pain. Patient has lost weight. General exam; middle-aged male, awake and alert. On BiPAP. Currently in no distress. Date/Time of Note DATE: 01/30/19 TIME: 09:44 Past Medical History Home Meds Reported Medications Hydrocodone/Acetaminophen ([place] 10-325 Tablet) 1 Each Tablet, 1 EACH PO Q6 PRN for PAIN, TAB 01/25/19 Morphine Sulfate* (Ms Contin*) 15 Mg Tablet.sa, 15 MG PO Q12 PRN for PAIN, TAB 01/25/19 Metoprolol Tartrate* (Lopressor*) 25 Mg Tablet, 25 MG PO BID, #60 TAB if blood pressure is 110 or higher 01/25/19 Sennosides* (Senna Lax*) 8.6 Mg Tablet, 1 TAB PO DAILY, TAB 01/25/19 Enzalutamide (XTANDI) 40 Mg Capsule, 160 MG PO QHS, CAP pt has own med 01/25/19 Finasteride* (Finasteride*) 5 Mg Tablet, 5 MG PO DAILY, TAB 01/25/19 Pantoprazole* (Protonix*) 40 Mg Tablet.dr, 40 MG PO DAILY, TAB 01/25/19 Ferrous Sulfate* (Ferrous Sulfate*) 325 Mg Tabec, 325 MG PO BID, TAB 01/25/19 Tamsulosin Hcl* (Flomax*) 0.4 Mg Cap.er.24h, 0.4 MG PO DAILY, CAP 01/25/19 Discontinued Reported Medications Enzalutamide (XTANDI) 40 Mg Capsule, 160 MG PO, CAP 12/16/18 Discontinued Scripts Levofloxacin* (Levaquin*) 500 Mg Tablet, 500 MG PO DAILY for 7 Days, TAB Prov:JING BRICENO MD 12/16/18 Finasteride* (Finasteride*) 5 Mg Tablet, 5 MG PO DAILY for 30 Days, TAB Prov:JING BRICENO MD 12/16/18 Hydrocodone Bit-Acetaminophen (Hydrocodone Bit-APAP) 5-325MG Tablet, 1 TAB PO Q6H PRN for PAIN LEVEL 1-3 for 30 Days, TAB Prov:JING BRICENO MD 12/16/18 Gabapentin* (Gabapentin*) 300 Mg Capsule, 300 MG PO BID for 30 Days, CAP Prov:JING BRICENO MD 12/16/18 Metoprolol Tartrate* (Lopressor*) 25 Mg Tab, 25 MG PO BID for 30 Days, TAB Prov:JING BRICENO MD 12/16/18 Medications Current Medications Acetaminophen (Tylenol Tab) 650 mg Q4H PRN PO fever Last administered on 01/29/19at 21:32; Admin Dose 650 MG; Start 01/25/19 at 18:00 Finasteride (Proscar) 5 mg DAILY PO Last administered on 01/29/19at 08:59; Admin Dose 5 MG; Start 01/26/19 at 09:00 Acetaminophen/ Hydrocodone Bitart ([place] (10/325)) 1 tab Q6H PRN PO MODERATE PAIN LEVEL 4-6 Last administered on 01/29/19 13:30; Admin Dose 1 TAB; Start 01/25/19 at 18:00 Morphine Sulfate (Ms Contin (Er)) 15 mg Q12 PRN PO SEVERE PAIN LEVEL 7-10; Start 01/25/19 at 18:00 Pantoprazole (Protonix Tab) 40 mg DAILY@0600 PO Last administered on 01/29/19 05:28; Admin Dose 40 MG; Start 01/26/19 at 06:00 Senna (Senokot) 1 tab DAILY PO Last administered on 01/29/19 08:59; Admin Dose 1 TAB; Start 01/26/19 at 09:00 Tamsulosin HCl (Flomax) 0.4 mg DAILY PO Last administered on 01/29/19 08:52; Admin Dose 0.4 MG; Start 01/26/19 at 09:00 Miscellaneous Information DOSE = 160mg = 4 X 4... QHS XX Last administered on 01/29/19 23:57; Admin Dose 160 MG; Start 01/26/19 at 21:00 Linezolid 300 ml @ 300 mls/hr Q12 IVPB Last administered on 01/30/19 08:35; Admin Dose 300 MLS/HR; Start 01/28/19 at 10:00 Levofloxacin (Levaquin) 500 mg DAILY@06 PO Last administered on 01/29/19 05:2 8; Admin Dose 500 MG; Start 01/28/19 at 10:30 Ondansetron HCl (Zofran Inj) 4 mg Q4H PRN IV NAUSEA AND/OR VOMITING Last administered on 01/29/19 09:40; Admin Dose 4 MG; Start 01/29/19 at 09:30 Sodium Chloride 1,000 ml @ 75 mls/hr [id number] IV Last administered on 01/30/19 04:41; Admin Dose 75 MLS/HR; Start 01/29/19 at 12:30 Sodium Hypochlorite (Dakins Diluted ()) 1 applic BID TP Last administered on 01/30/19 09:00; Admin Dose 1 APPLIC; Start 01/29/19 at 21:00 Midodrine (Proamatine) 5 mg TID@,13,17 PO Last administered on 01/30/19 02:01; Admin Dose 5 MG; Start 01/30/19 at 01:30 Sodium Bicarbonate 150 meq/Dextrose 1,150 ml @ 100 mls/hr [id number] IV ; Start 01/30/19 at 10:30 Allergies: Coded Allergies: No Known Allergy (Unverified , 01/25/19) Past Surgical History Past Surgical Hx: no surgical history Social History Smoking Status: Never smoker Exam/Review of Systems Exam Vitals Vital Signs Date Temp Pulse Resp B/P (MAP) Pulse Ox O2 O2 Flow FiO2 Time Delivery Rate 01/30/19 88 08:00 01/30/19 98.9 14 89/66 (74) 100 06:30 01/30/19 30 05:55 01/30/19 Nasal 2.0 00:18 Cannula Intake and Output 01/29/19 01/29/19 01/30/19 1515:00 23:00 07:00 IntakeIntake Total 300 ml 3450 ml 1890 ml OutputOutput Total 360 ml 300 ml BalanceBalance 300 ml 3090 ml 1590 ml Exam H EENT exam; supple neck, positive JVD. No lymphadenopathy. Midline trachea. No thyromegaly. Patient has fair dentition. No neck masses. Pupils are small bilaterally. Chest exam; diminished breath sounds bilaterally. S1-S2 audible, no murmurs. Regular rhythm. Abdomen exam; soft, nontender. No organomegaly. Bowel sounds audible. Extremity exam; 2+ edema. There are superficial wounds and lower extremities bilaterally. [employer] exam; patient awake alert follows simple commands exhibiting paraplegia. Results Result Diagram: 01/30/19 0332 01/30/19 0332 Results 24hrs Laboratory Tests Test 01/29/19 10:19 01/30/19 03:09 01/30/19 03:15 01/30/19 03:31 White Blood 3.3 L Count Red Blood Count 2.54 L Hemoglobin 7.7 L Hematocrit 23.6 L Mean Corpuscular 92.9 Volume Mean Corpuscular 30.3 Hemoglobin Mean Corpuscular 32.6 Hemoglobin Luz Maria nt Red Cell 17.8 H Distribution Width Platelet Count 82 L Mean Platelet 10.0 Volume Immature 1.500 H Granulocytes % Neutrophils % 87.4 H Lymphocytes % 6.0 L Monocytes % 4.8 Eosinophils % 0.0 Basophils % 0.3 Nucleated Red 0.0 Blood Cells % Immature 0.050 H Granulocytes # Neutrophils # 2.9 Lymphocytes # 0.2 L Monocytes # 0.2 L Eosinophils # 0.0 Basophils # 0.0 Nucleated Red 0.0 Blood Cells # Sodium Level 130 L Potassium Level 3.0 L Chloride Level 102 Carbon Dioxide 16 L Level Anion Gap 12 Blood Urea 10 Nitrogen Creatinine 0.36 L Est Glomerular > 60 Filtrat Rate mL/min Glucose Level 117 Lactic Acid 4.9 *H 4.1 *H Level Calcium Level 7.7 L Magnesium Level 1.7 Total Bilirubin 0.4 Direct Bilirubin 0.00 Indirect 0.4 Bilirubin Aspartate Amino < 8 L Transf (AST/SGOT ) Alanine 14 Aminotransferase (ALT/SGPT) Alkaline 224 H Phosphatase Creatine Kinase < 20 L 20 L Total Protein 4.1 L Albumin 1.6 L Globulin 2.50 Albumin/Globulin 0.64 Ratio Bedside Glucose 135 Blood Gas Blood arterial Specimen Source Arterial Blood 01/30/2019 3:15: Date Drawn 34 AM Arterial Blood 7.211 *L pH (Temp corrected) Arterial Blood 42.9 pCO2 (Temp correct) Arterial Blood 148.2 H pO2 (Temp corrected) Arterial Blood 16.8 L HCO3 Arterial Blood -10.4 L Base Excess Arterial Blood 98.3 H Oxygen Saturatio n Derrell Test ACCEPTAB Arterial Blood Left Radial Gas Puncture Site Arterial 0.3 Blood Carboxyhem oglobin Arterial Blood 0.6 Methemoglobin Blood Gas A-a O2 15.3 Differential Oxyhemoglobin 97.4 Percent Blood Gas 37.0 Temperature Blood Gas NASAL CANNULA Modality FiO2 30.[address] DUTTA Critical Value Read Back Blood Gas MR Notified Whom Blood Gas 01/30/2019 3:23: Notified Time 13 AM Creatine Kinase 4.2 Index Creatinine 0.83 Kinase MB (Mass) Troponin I < 0.012 Test 01/30/19 03:32 01/30/19 07:00 White Blood 4.1 #L Count Red Blood Count 2.51 L Hemoglobin 7.6 L Hematocrit 23.6 L Mean Corpuscular 94.0 Volume Mean Corpuscular 30.3 Hemoglobin Mean Corpuscular 32.2 Hemoglobin Luz Maria nt Red Cell 17.8 H Distribution Width Platelet Count 90 L Mean Platelet 10.0 Volume Immature 1.900 H Granulocytes % Neutrophils % 84.1 H Lymphocytes % 7.5 L Monocytes % 6.3 Eosinophils % 0.0 Basophils % 0.2 Nucleated Red 0.0 Blood Cells % Immature 0.080 H Granulocytes # Neutrophils # 3.5 Lymphocytes # 0.3 L Monocytes # 0.3 Eosinophils # 0.0 Basophils # 0.0 Nucleated Red 0.0 Blood Cells # Sodium Level 126 L Potassium Level 3.7 Chloride Level 103 Carbon Dioxide 17 L Level Anion Gap 6 Blood Urea 11 Nitrogen Creatinine 0.39 L Est Glomerular > 60 Filtrat Rate mL/min Glucose Level 112 Calcium Level 8.1 L Phosphorus Level 2.6 Magnesium Level 1.7 Total Bilirubin 0.3 Direct Bilirubin 0.00 Indirect 0.3 Bilirubin Aspartate Amino < 8 L Transf (AST/SGOT ) Alanine 10 L Aminotransferase (ALT/SGPT) Alkaline 234 H Phosphatase Total Protein 4.5 L Albumin 1.8 L Globulin 2.70 Albumin/Globulin 0.66 Ratio Blood Gas Blood arterial Specimen Source Arterial Blood 01/30/2019 6:50: Date Drawn 25 AM Arterial Blood 7.317 L pH (Temp corrected) Arterial Blood 35.1 pCO2 (Temp correct) Arterial Blood 144.7 H pO2 (Temp corrected) Arterial Blood 17.6 L HCO3 Arterial Blood -7.8 L Base Excess Arterial Blood 98.6 H Oxygen Saturatio n Derrell Test ACCEPTAB Arterial Blood Left Radial Gas Puncture Site Arterial 0.3 Blood Carboxyhem oglobin Arterial Blood 0.5 Methemoglobin Blood Gas A-a O2 28.0 H Differential Oxyhemoglobin 97.8 Percent Blood Gas 37.0 Temperature Blood Gas 18.0 Respiration Rate Blood Gas Actual 19 Respiration Rate Blood Gas MASK - BIPAP Modality FiO2 30.0 Blood Gas 10 Pressure Support Blood Gas 18/8 IPAP/EPAP Ratio Blood Gas VT Notified Whom Blood Gas 01/30/2019 6:58: Notified Time 01 AM Medications Medication Current Medications Acetaminophen (Tylenol Tab) 650 mg Q4H PRN PO fever Last administered on 01/29/19 21:32; Admin Dose 650 MG; Start 01/25/19 at 18:00 Finasteride (Proscar) 5 mg DAILY PO Last administered on 01/29/19 08:59; Admin Dose 5 MG; Start 01/26/19 at 09:00 Acetaminophen/ Hydrocodone Bitart ([place] (10/325)) 1 tab Q6H PRN PO MODERATE PAIN LEVEL 4-6 Last administered on 6/12/19at 13:30; Admin Dose 1 TAB; Start 01/25/19 at 18:00 Morphine Sulfate (Ms Contin (Er)) 15 mg Q12 PRN PO SEVERE PAIN LEVEL 7-10; Start 01/25/19 at 18:00 Pantoprazole (Protonix Tab) 40 mg DAILY@0600 PO Last administered on 01/29/19 05:28; Admin Dose 40 MG; Start 01/26/19 at 06:00 Senna (Senokot) 1 tab DAILY PO Last administered on 01/29/19 08:59; Admin Dose 1 TAB; Start 01/26/19 at 09:00 Tamsulosin HCl (Flomax) 0.4 mg DAILY PO Last administered on 01/29/19 08:52; Admin Dose 0.4 MG; Start 01/26/19 at 09:00 Miscellaneous Information DOSE = 160mg = 4 X 4... QHS XX Last administered on 01/29/19 23:57; Admin Dose 160 MG; Start 01/26/19 at 21:00 Linezolid 300 ml @ 300 mls/hr Q12 IVPB Last administered on 01/30/19 08:35; Admin Dose 300 MLS/HR; Start 01/28/19 at 10:00 Levofloxacin (Levaquin) 500 mg DAILY@06 PO Last administered on 01/29/19 05:28; Admin Dose 500 MG; Start 01/28/19 at 10:30 Ondansetron HCl (Zofran Inj) 4 mg Q4H PRN IV NAUSEA AND/OR VOMITING Last administered on 01/29/19 09:40; Admin Dose 4 MG; Start 01/29/19 at 09:30 Sodium Chloride 1,000 ml @ 75 mls/hr [id number] IV Last administered on 01/30/19 04:41; Admin Dose 75 MLS/HR; Start 01/29/19 at 12:30 Sodium Hypochlorite (Dakins Diluted ()) 1 applic BID TP Last administered on 01/30/19 09:00; Admin Dose 1 APPLIC; Start 01/29/19 at 21:00 Midodrine (Proamatine) 5 mg TID@,,17 PO Last administered on 01/30/19 02:01; Admin Dose 5 MG; Start 01/30/19 at 01:30 Sodium Bicarbonate 150 meq/Dextrose 1,150 ml @ 100 mls/hr [id number] IV ; Start 01/30/19 at 10:30 ROBEL LAWTON Jan 30, 2019 09:48
--- NOTE | 2019-01-30 10:15 | CONS ---
"Assessment/Plan Assessment/Plan Hospital Course (Demo Recall) 1. Multiple wounds -debridement of sacral wound -Recommend podiatry consult for lower extremity ulcers -local care -frequent turning and off-loading -low air loss mattress -vitamin c -short term zinc -optimize nutrition 2. Sepsis: Currently hypotensive and requiring BiPAP; likely 2/2 UTI plus bacteremia +/- infected sacral wound -Supportive care -Treat infections -Judicious fluid 3. UTI: -abx per sensitivity -frequent bladder emptying/cath care 4. Bacteremia -Antibiotics per sensitivity> per ID 5.Pancytopenia -Supportive 6.Hyponatremia: -Judicious fluid correction 7. Hypocalcemia with hypoalbuminemia: Likely multifactorial -Treat infections -Optimize nutrition 8. Metastatic prostate cancer: -Oncology follow-up 9. Chronic back pain: -Pain management Thank you. Patient seen and examined in collaboration with Dr. Marilu Us. Consultation Date/Type/Reason Admit Date/Time Jan 26, 2019 at 09:33 Date of Consultation: Jan 30, 2019 Type of Consult Surgical Reason for Consultation Wounds Requesting Provider: HAFSA CLEMONS MD Date/Time of Note DATE: 01/30/19 TIME: 10:02 Hx of Present Illness Gerber Aranda is a 54-year-old man with significant comorbidities namely metastatic prostate cancer, who presented with complaints of generalized weakness. Associated symptoms include hypotension. Is currently being managed for sepsis secondary to bacteremia and UTI. He is currently in ICU care after a rapid response due to hypotension and shortness of breath and is currently on BiPAP. Additionally, he is also noted to have loose stool. No recent fevers, chills, congested cough, nausea, vomiting, seizures or rash. He is also known to have multiple pressure ulcers. General surgery was asked to evaluate. 12 point review of systems was performed and is negative except for as stated in HPI. Past Medical History Metastatic prostate cancer with metastasis to bone Hypertension Chronic back pain Home Meds Reported Medications Hydrocodone/Acetaminophen ([place] 10-325 Tablet) 1 Each Tablet, 1 EACH PO Q6 PRN for PAIN, TAB 01/25/19 Morphine Sulfate* (Ms Contin*) 15 Mg Tablet.sa, 15 MG PO Q12 PRN for PAIN, TAB 01/25/19 Metoprolol Tartrate* (Lopressor*) 25 Mg Tablet, 25 MG PO BID, #60 TAB if blood pressure is 110 or higher 01/25/19 Sennosides* (Senna Lax*) 8.6 Mg Tablet, 1 TAB PO DAILY, TAB 01/25/19 Enzalutamide (XTANDI) 40 Mg Capsule, 160 MG PO QHS, CAP pt has own med 01/25/19 Finasteride* (Finasteride*) 5 Mg Tablet, 5 MG PO DAILY, TAB 01/25/19 Pantoprazole* (Protonix*) 40 Mg Tablet.dr, 40 MG PO DAILY, TAB 01/25/19 Ferrous Sulfate* (Ferrous Sulfate*) 325 Mg Tabec, 325 MG PO BID, TAB 01/25/19 Tamsulosin Hcl* (Flomax*) 0.4 Mg Cap.er.24h, 0.4 MG PO DAILY, CAP 01/25/19 Discontinued Reported Medications Enzalutamide (XTANDI) 40 Mg Capsule, 160 MG PO, CAP 12/16/18 Discontinued Scripts Levofloxacin* (Levaquin*) 500 Mg Tablet, 500 MG PO DAILY for 7 Days, TAB Prov:JING BRICENO MD 12/16/18 Finasteride* (Finasteride*) 5 Mg Tablet, 5 MG PO DAILY for 30 Days, TAB Prov:JING BRICENO MD 12/16/18 Hydrocodone Bit-Acetaminophen (Hydrocodone Bit-APAP) 5-325MG Tablet, 1 TAB PO Q6H PRN for PAIN LEVEL 1-3 for 30 Days, TAB Prov:JING BRICENO MD 12/16/18 Gabapentin* (Gabapentin*) 300 Mg Capsule, 300 MG PO BID for 30 Days, CAP Prov:JING BRICENO MD 12/16/18 Metoprolol Tartrate* (Lopressor*) 25 Mg Tab, 25 MG PO BID for 30 Days, TAB Prov:JING BRICENO MD 12/16/18 Medications Current Medications Acetaminophen (Tylenol Tab) 650 mg Q4H PRN PO fever Last administered on 01/29/19at 21:32; Admin Dose 650 MG; Start 01/25/19 at 18:00 Finasteride (Proscar) 5 mg DAILY PO Last administered on 01/29/19at 08:59; Admin Dose 5 MG; Start 01/26/19 at 09:00 Acetaminophen/ Hydrocodone Bitart ([place] (10/325)) 1 tab Q6H PRN PO MODERATE PAIN LEVEL 4-6 Last administered on 01/29/19 13:30; Admin Dose 1 TAB; Start 01/25/19 at 18:00 Morphine Sulfate (Ms Contin (Er)) 15 mg Q12 PRN PO SEVERE PAIN LEVEL 7-10; Start 01/25/19 at 18:00 Pantoprazole (Protonix Tab) 40 mg DAILY@0600 PO Last administered on 01/29/19 05:28; Admin Dose 40 MG; Start 01/26/19 at 06:00 Senna (Senokot) 1 tab DAILY PO Last administered on 01/29/19 08:59; Admin Dose 1 TAB; Start 01/26/19 at 09:00 Tamsulosin HCl (Flomax) 0.4 mg DAILY PO Last administered on 01/29/19 08:52; Admin Dose 0.4 MG; Start 01/26/19 at 09:00 Miscellaneous Information DOSE = 160mg = 4 X 4... QHS XX Last administered on 01/29/19 23:57; Admin Dose 160 MG; Start 01/26/19 at 21:00 Linezolid 300 ml @ 300 mls/hr Q12 IVPB Last administered on 01/30/19 08:35; Admin Dose 300 MLS/HR; Start 01/28/19 at 10:00 Levofloxacin (Levaquin) 500 mg DAILY@06 PO Last administered on 01/29/19 05:28; Admin Dose 500 MG; Start 01/28/19 at 10:30 Ondansetron HCl (Zofran Inj) 4 mg Q4H PRN IV NAUSEA AND/OR VOMITING Last administered on 01/29/19 09:40; Admin Dose 4 MG; Start 01/29/19 at 09:30 Sodium Chloride 1,000 ml @ 75 mls/hr [id number] IV Last administered on 01/30/19 04:41; Admin Dose 75 MLS/HR; Start 01/29/19 at 12:30 Sodium Hypochlorite (Dakins Diluted ()) 1 applic BID TP Last administered on 01/30/19 09:00; Admin Dose 1 APPLIC; Start 01/29/19 at 21:00 Midodrine (Proamatine) 5 mg TID@,13,17 PO Last administered on 6/13/19at 02:01; Admin Dose 5 MG; Start 01/30/19 at 01:30 Sodium Bicarbonate 150 meq/Dextrose 1,150 ml @ 100 mls/hr [id number] IV ; Start 01/30/19 at 10:30 Allergies: Coded Allergies: No Known Allergy (Unverified , 01/25/19) Past Surgical History Right hip surgery Family History Significant Family History: no pertinent family hx Social History Alcohol Use: none Smoking Status: Never smoker Drug Use: none Exam/Review of Systems Exam Vitals Vital Signs Date Temp Pulse Resp B/P (MAP) Pulse Ox O2 O2 Flow FiO2 Time Delivery Rate 01/30/19 88 08:00 01/30/19 98.9 14 89/66 (74) 100 06:30 01/30/19 30 05:55 01/30/19 Nasal 2.0 00:18 Cannula Intake and Output 01/29/19 01/29/19 01/30/19 1515:00 23:00 07:00 IntakeIntake Total 300 ml 3450 ml 1890 ml OutputOutput Total 360 ml 300 ml BalanceBalance 300 ml 3090 ml 1590 ml Constitutional: alert, oriented Psych: nl mood/affect; No anxiety Head: normocephalic, atraumatic Eyes: nl conjunctiva, EOMI, nl lids, nl sclera ENMT: nl external ears & nose, nl lips & teeth, mucosa pink and moist Neck: supple, non-tender; No jvd Respiratory: other (BiPAP); No congested cough, No labored breathing Cardiovascular: regular rate and rhythm, nl pulses, other (Sinus rhythm) Gastrointestinal: soft, non-tender; No distended, No tender Genitourinary - Male: nl penis; No nl scrotum (Minimal edema) Musculoskeletal: muscle weakness, other (Slight foot drop) Extremities: normal pulses, pitting pedal edema (1+) Neurological: nl mental status; No nl strength (Generalized weakness), No focal weakness Skin: nl turgor, other (Multiple wounds: Sacral coccyx: Slough and eschar, no periwound erythema or induration, purulent drainage | bilateral lower extremities: Eschar) Results Result Diagram: 01/30/19 0332 01/30/19 0332 Results 24hrs Laboratory Tests Test 01/29/19 10:19 01/30/19 03:09 01/30/19 03:15 01/30/19 03:31 White Blood 3.3 L Count Red Blood Count 2.54 L Hemoglobin 7.7 L Hematocrit 23.6 L Mean Corpuscular 92.9 Volume Mean Corpuscular 30.3 Hemoglobin Mean Corpuscular 32.6 Hemoglobin Luz Maria nt Red Cell 17.8 H Distribution Width Platelet Count 82 L Mean Platelet 10.0 Volume Immature 1.500 H Granulocytes % Neutrophils % 87.4 H Lymphocytes % 6.0 L Monocytes % 4.8 Eosinophils % 0.0 Basophils % 0.3 Nucleated Red 0.0 Blood Cells % Immature 0.050 H Granulocytes # Neutrophils # 2.9 Lymphocytes # 0.2 L Monocytes # 0.2 L Eosinophils # 0.0 Basophils # 0.0 Nucleated Red 0.0 Blood Cells # Sodium Level 130 L Potassium Level 3.0 L Chloride Level 102 Carbon Dioxide 16 L Level Anion Gap 12 Blood Urea 10 Nitrogen Creatinine 0.36 L Est Glomerular > 60 Filtrat Rate mL/min Glucose Level 117 Lactic Acid 4.9 *H 4.1 *H Level Calcium Level 7.7 L Magnesium Level 1.7 Total Bilirubin 0.4 Direct Bilirubin 0.00 Indirect 0.4 Bilirubin Aspartate Amino < 8 L Transf (AST/SGOT ) Alanine 14 Aminotransferase (ALT/SGPT) Alkaline 224 H Phosphatase Creatine Kinase < 20 L 20 L Total Protein 4.1 L Albumin 1.6 L Globulin 2.50 Albumin/Globulin 0.64 Ratio Bedside Glucose 135 Blood Gas Blood arterial Specimen Source Arterial Blood 01/30/2019 3:15: Date Drawn 34 AM Arterial Blood 7.211 *L pH (Temp corrected) Arterial Blood 42.9 pCO2 (Temp correct) Arterial Blood 148.2 H pO2 (Temp corrected) Arterial Blood 16.8 L HCO3 Arterial Blood -10.4 L Base Excess Arterial Blood 98.3 H Oxygen Saturatio n Derrell Test ACCEPTAB Arterial Blood Left Radial Gas Puncture Site Arterial 0.3 Blood Carboxyhem oglobin Arterial Blood 0.6 Methemoglobin Blood Gas A-a O2 15.3 Differential Oxyhemoglobin 97.4 Percent Blood Gas 37.0 Temperature Blood Gas NASAL CANNULA Modality FiO2 30.[address] DUTTA Critical Value Read Back Blood Gas MR Notified Whom Blood Gas 01/30/2019 3:23: Notified Time 13 AM Creatine Kinase 4.2 Index Creatinine 0.83 Kinase MB (Mass) Troponin I < 0.012 Test 01/30/19 03:32 01/30/19 07:00 White Blood 4.1 #L Count Red Blood Count 2.51 L Hemoglobin 7.6 L Hematocrit 23.6 L Mean Corpuscular 94.0 Volume Mean Corpuscular 30.3 Hemoglobin Mean Corpuscular 32.2 Hemoglobin Luz Maria nt Red Cell 17.8 H Distribution Width Platelet Count 90 L Mean Platelet 10.0 Volume Immature 1.900 H Granulocytes % Neutrophils % 84.1 H Lymphocytes % 7.5 L Monocytes % 6.3 Eosinophils % 0.0 Basophils % 0.2 Nucleated Red 0.0 Blood Cells % Immature 0.080 H Granulocytes # Neutrophils # 3.5 Lymphocytes # 0.3 L Monocytes # 0.3 Eosinophils # 0.0 Basophils # 0.0 Nucleated Red 0.0 Blood Cells # Sodium Level 126 L Potassium Level 3.7 Chloride Level 103 Carbon Dioxide 17 L Level Anion Gap 6 Blood Urea 11 Nitrogen Creatinine 0.39 L Est Glomerular > 60 Filtrat Rate mL/min Glucose Level 112 Calcium Level 8.1 L Phosphorus Level 2.6 Magnesium Level 1.7 Total Bilirubin 0.3 Direct Bilirubin 0.00 Indirect 0.3 Bilirubin Aspartate Amino < 8 L Transf (AST/SGOT ) Alanine 10 L Aminotransferase (ALT/SGPT) Alkaline 234 H Phosphatase Total Protein 4.5 L Albumin 1.8 L Globulin 2.70 Albumin/Globulin 0.66 Ratio Blood Gas Blood arterial Specimen Source Arterial Blood 01/30/2019 6:50: Date Drawn 25 AM Arterial Blood 7.317 L pH (Temp corrected) Arterial Blood 35.1 pCO2 (Temp correct) Arterial Blood 144.7 H pO2 (Temp corrected) Arterial Blood 17.6 L HCO3 Arterial Blood -7.8 L Base Excess Arterial Blood 98.6 H Oxygen Saturatio n Derrell Test ACCEPTAB Arterial Blood Left Radial Gas Puncture Site Arterial 0.3 Blood Carboxyhem oglobin Arterial Blood 0.5 Methemoglobin Blood Gas A-a O2 28.0 H Differential Oxyhemoglobin 97.8 Percent Blood Gas 37.0 Temperature Blood Gas 18.0 Respiration Rate Blood Gas Actual 19 Respiration Rate Blood Gas MASK - BIPAP Modality FiO2 30.0 Blood Gas 10 Pressure Support Blood Gas 18/8 IPAP/EPAP Ratio Blood Gas AR Notified Whom Blood Gas 01/30/2019 6:58: Notified Time 01 AM Medications Medication Current Medications Acetaminophen (Tylenol Tab) 650 mg Q4H PRN PO fever Last administered on 01/29/19 21:32; Admin Dose 650 MG; Start 01/25/19 at 18:00 Finasteride (Proscar) 5 mg DAILY PO Last administered on 01/29/19 08:59; Admin Dose 5 MG; Start 01/26/19 at 09:00 Acetaminophen/ Hydrocodone Bitart ([place] (10/325)) 1 tab Q6H PRN PO MODERATE PAIN LEVEL 4-6 Last administered on 01/29/19 13:30; Admin Dose 1 TAB; Start 01/25/19 at 18:00 Morphine Sulfate (Ms Contin (Er)) 15 mg Q12 PRN PO SEVERE PAIN LEVEL 7-10; Start 01/25/19 at 18:00 Pantoprazole (Protonix Tab) 40 mg DAILY@0600 PO Last administered on 01/29/19 05:28; Admin Dose 40 MG; Start 01/26/19 at 06:00 Senna (Senokot) 1 tab DAILY PO Last administered on 01/29/19 08:59; Admin Dose 1 TAB; Start 01/26/19 at 09:00 Tamsulosin HCl (Flomax) 0.4 mg DAILY PO Last administered on 01/29/19 08:52; Admin Dose 0.4 MG; Start 01/26/19 at 09:00 Miscellaneous Information DOSE = 160mg = 4 X 4... QHS XX Last administered on 01/29/19 23:57; Admin Dose 160 MG; Start 01/26/19 at 21:00 Linezolid 300 ml @ 300 mls/hr Q12 IVPB Last administered on 01/30/19 08:35; Admin Dose 300 MLS/HR; Start 01/28/19 at 10:00 Levofloxacin (Levaquin) 500 mg DAILY@06 PO Last administered on 01/29/19 05:28; Admin Dose 500 MG; Start 01/28/19 at 10:30 Ondansetron HCl (Zofran Inj) 4 mg Q4H PRN IV NAUSEA AND/OR VOMITING Last administered on 01/29/19 09:40; Admin Dose 4 MG; Start 01/29/19 at 09:30 Sodium Chloride 1,000 ml @ 75 mls/hr [id number] IV Last administered on 01/30/19at 04:41; Admin Dose 75 MLS/HR; Start 01/29/19 at 12:30 Sodium Hypochlorite (Dakins Diluted ()) 1 applic BID TP Last administered on 01/30/19at 09:00; Admin Dose 1 APPLIC; Start 01/29/19 at 21:00 Midodrine (Proamatine) 5 mg TID@,13,17 PO Last administered on 01/30/19at 02:01; Admin Dose 5 MG; Start 01/30/19 at 01:30 Sodium Bicarbonate 150 meq/Dextrose 1,150 ml @ 100 mls/hr [id number] IV ; Start 01/30/19 at 10:30 TREVOR ANGULO NP Jan 30, 2019 10:15 MARILU US MD Jan 31, 2019 20:32"
[2019-01-30] MEDS: SODIUM BICARBONATE (IV ADD) 150 MEQ in DEXTROSE 5% 1,000 ML IV SCH ×2 (10:30→22:48)
--- NOTE | 2019-01-30 14:57 | RADRPT ---
Vent Rate: 91 bpm RR Interval: 656 msec MO Interval: 174 msec QRS Duration: 92 msec QT Interval: 395 msec QTC Interval: 488 msec P-R-T [place]: 38 - 16 - 47 degrees Sinus rhythm...normal P axis, V-rate 50- 99 Multiple ventricular premature complexes...V complexes w/ short R-R intervls Low voltage, extremity leads...all extremity leads <0.5mV Electronically Signed By: Santosh Thakur
[2019-01-30] MEDS ORDERED: SOD CHLORIDE 0.9% 1,000 ML IV ONE (15:00)
--- NOTE | 2019-01-30 15:06 | CONS ---
Assessment/Plan Assessment/Plan Hospital Course (Demo Recall) - Severe sepsis 2/2 E. Coli bacteremia and polymicrobial UTI +/- sacrococcyx pressure ulcer infection - E. Coli bacteremia on 01/25/2019 - CAUTI d/t VRE, MRSA, and C. albicans - Recurrent funguria - Acute hypoxic respiratory failure- s/p Bipap, now weaned back to O2 at 2L via NC - Lactic acidosis - Acute on chronic anemia requiring PRBC - Thrombocytopenia - improving - Pancytopenia - Symptomatic bradycardia - HR improved - Unstageable sacrococcyx pressure ulcer - Multiple wounds - Hyponatremia - Hypocalcemia - Metastatic prostate cancer - Chronic back pain - Paraplegic - Severe hypoalbuminemia with anasarca - Severe protein calorie malnutrition Recommendations: - Ordered finch culture, lactic acid, procalcitonin - DC Levaquin (01/28/2019-01/29/2019) and start IV meropenem (01/30/2019-) - Continue IV linezolid (01/28/2019-) - F/u wound cx and repeat blood cx from 01/29/2019 (in process) - We recommend TTE to r/o endocarditis - Serial lactic acid - Trend CBC and CrCl Management discussed patient, GUNNER Jackson, Dr. Clemons, and with Dr. 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 Pt with SBP in the 70's. Remains afebrile. Pt was transferred to ICU and placed on Bipap, received Albumin and is now on midodrine. Pt missed AM dose of PO Levaquin d/t lethargy and being on Bipap. Pt has not required vasopressors; MAP remains stable; Urine output is low per d/w nursing. Sacrococcyx wound cx was sent and Surgery is planning serial excisional debridement of sacral wound. Pt currently states back pain is "tolerable". Denies SOB, n/v. States feels "better". Exam/Review of Systems Exam Vitals Vital Signs Date Temp Pulse Resp B/P (MAP) Pulse Ox O2 O2 Flow FiO2 Time Delivery Rate 01/30/19 87 12:00 01/30/19 100 30 09:20 01/30/19 98.9 14 89/66 (74) 06:30 01/30/19 Nasal 2.0 00:18 Cannula Intake and Output 01/29/19 01/29/19 01/30/19 1515:00 23:00 07:00 IntakeIntake Total 300 ml 3450 ml 1890 ml OutputOutput Total 360 ml 300 ml BalanceBalance 300 ml 3090 ml 1590 ml Constitutional: alert, oriented, well developed, frail Psych: other (flat affect) Head: normocephalic, atraumatic Eyes: nl conjunctiva, nl sclera ENMT: nl external ears & nose, mucosa pink and moist Neck: supple, non-tender Respiratory: clear to auscultation, normal air movement, other (On 2L via NC) Cardiovascular: regular rate and rhythm, nl pulses, edema Gastrointestinal: soft, non-tender Genitourinary - Male: other (scrotal edema; FC with decreased urine output with pink tinged urine) Musculoskeletal: muscle weakness Extremities: edema (BLE), other (LUE midline c/d/i) Neurological: nl speech, focal weakness (paraplegic) Skin: other (Nurse notes and photos in chart reviewed: multiple wounds on BLE, L heel>R heel, sacrococcyx with slough and eschar) Results Result Diagram: 01/30/19 0332 01/30/19 0332 Results 24hrs Laboratory Tests Test 01/30/19 03:09 01/30/19 03:15 01/30/19 03:31 01/30/19 03:32 Bedside Glucose 135 Blood Gas Blood arterial Specimen Source Arterial Blood 01/30/2019 3:15: Date Drawn 34 AM Arterial Blood 7.211 *L pH (Temp corrected) Arterial Blood 42.9 pCO2 (Temp correct) Arterial Blood 148.2 H pO2 (Temp corrected) Arterial Blood 16.8 L HCO3 Arterial Blood -10.4 L Base Excess Arterial Blood 98.3 H Oxygen Saturatio n Derrell Test ACCEPTAB Arterial Blood Left Radial Gas Puncture Site Arterial 0.3 Blood Carboxyhem oglobin Arterial Blood 0.6 Methemoglobin Blood Gas A-a O2 15.3 Differential Oxyhemoglobin 97.4 Percent Blood Gas 37.0 Temperature Blood Gas NASAL CANNULA Modality FiO2 30.[address] DUTTA Critical Value Read Back Blood Gas MR Notified Whom Blood Gas 01/30/2019 3:23: Notified Time 13 AM Lactic Acid 4.1 *H Level Creatine Kinase 20 L Creatine Kinase 4.2 Index Creatinine 0.83 Kinase MB (Mass) Troponin I < 0.012 White Blood 4.1 #L Count Red Blood Count 2.51 L Hemoglobin 7.6 L Hematocrit 23.6 L Mean Corpuscular 94.0 Volume Mean Corpuscular 30.3 Hemoglobin Mean Corpuscular 32.2 Hemoglobin Luz Maria nt Red Cell 17.8 H Distribution Width Platelet Count 90 L Mean Platelet 10.0 Volume Immature 1.900 H Granulocytes % Neutrophils % 84.1 H Lymphocytes % 7.5 L Monocytes % 6.3 Eosinophils % 0.0 Basophils % 0.2 Nucleated Red 0.0 Blood Cells % Immature 0.080 H Granulocytes # Neutrophils # 3.5 Lymphocytes # 0.3 L Monocytes # 0.3 Eosinophils # 0.0 Basophils # 0.0 Nucleated Red 0.0 Blood Cells # Sodium Level 126 L Potassium Level 3.7 Chloride Level 103 Carbon Dioxide 17 L Level Anion Gap 6 Blood Urea 11 Nitrogen Creatinine 0.39 L Est Glomerular > 60 Filtrat Rate mL/min Glucose Level 112 Calcium Level 8.1 L Phosphorus Level 2.6 Magnesium Level 1.7 Total Bilirubin 0.3 Direct Bilirubin 0.00 Indirect 0.3 Bilirubin Aspartate Amino < 8 L Transf (AST/SGOT ) Alanine 10 L Aminotransferase (ALT/SGPT) Alkaline 234 H Phosphatase Total Protein 4.5 L Albumin 1.8 L Globulin 2.70 Albumin/Globulin 0.66 Ratio Test 01/30/19 07:00 01/30/19 09:24 Blood Gas Blood arterial Specimen Source Arterial Blood 01/30/2019 6:50: Date Drawn 25 AM Arterial Blood 7.317 L pH (Temp corrected) Arterial Blood 35.1 pCO2 (Temp correct) Arterial Blood 144.7 H pO2 (Temp corrected) Arterial Blood 17.6 L HCO3 Arterial Blood -7.8 L Base Excess Arterial Blood 98.6 H Oxygen Saturatio n Derrell Test ACCEPTAB Arterial Blood Left Radial Gas Puncture Site Arterial 0.3 Blood Carboxyhem oglobin Arterial Blood 0.5 Methemoglobin Blood Gas A-a O2 28.0 H Differential Oxyhemoglobin 97.8 Percent Blood Gas 37.0 Temperature Blood Gas 18.0 Respiration Rate Blood Gas Actual 19 Respiration Rate Blood Gas MASK - BIPAP Modality FiO2 30.0 Blood Gas 10 Pressure Support Blood Gas 18/8 IPAP/EPAP Ratio Blood Gas MA Notified Whom Blood Gas 01/30/2019 6:58: Notified Time 01 AM Creatine Kinase < 20 L Creatine Kinase Index Creatinine 0.89 Kinase MB (Mass) Troponin I < 0.012 Imaging Imaging CXR 01/30/2019: 1. Bilateral air space disease worse on the right and worse involving the left lower lung and rule out pulmonary edema and/or inflammatory infiltrates. 2. Bilateral small pleural effusions. 3. Mild cardiomegaly. Medications Medication Current Medications Acetaminophen (Tylenol Tab) 650 mg Q4H PRN PO fever Last administered on 01/29/19 21:32; Admin Dose 650 MG; Start 01/25/19 at 18:00 Finasteride (Proscar) 5 mg DAILY PO Last administered on 01/29/19 08:59; Admin Dose 5 MG; Start 01/26/19 at 09:00 Acetaminophen/ Hydrocodone Bitart ([place] (10/325)) 1 tab Q6H PRN PO MODERATE PAIN LEVEL 4-6 Last administered on 01/29/19 13:30; Admin Dose 1 TAB; Start 01/25/19 at 18:00 Morphine Sulfate (Ms Contin (Er)) 15 mg Q12 PRN PO SEVERE PAIN LEVEL 7-10; Start 01/25/19 at 18:00 Pantoprazole (Protonix Tab) 40 mg DAILY@0600 PO Last administered on 01/29/19 05:28; Admin Dose 40 MG; Start 01/26/19 at 06:00 Senna (Senokot) 1 tab DAILY PO Last administered on 01/29/19 08:59; Admin Dose 1 TAB; Start 01/26/19 at 09:00 Tamsulosin HCl (Flomax) 0.4 mg DAILY PO Last administered on 01/29/19 08:52; Admin Dose 0.4 MG; Start 01/26/19 at 09:00 Miscellaneous Information DOSE = 160mg = 4 X 4... QHS XX Last administered on 01/29/19 23:57; Admin Dose 160 MG; Start 01/26/19 at 21:00 Linezolid 300 ml @ 300 mls/hr Q12 IVPB Last administered on 01/30/19 08:35; Admin Dose 300 MLS/HR; Start 01/28/19 at 10:00 Levofloxacin (Levaquin) 500 mg DAILY@06 PO Last administered on 01/29/19 05:28; Admin Dose 500 MG; Start 01/28/19 at 10:30 Ondansetron HCl (Zofran Inj) 4 mg Q4H PRN IV NAUSEA AND/OR VOMITING Last administered on 01/29/19 09:40; Admin Dose 4 MG; Start 01/29/19 at 09:30 Sodium Chloride 1,000 ml @ 75 mls/hr [id number] IV Last administered on 01/30/19 04:41; Admin Dose 75 MLS/HR; Start 01/29/19 at 12:30 Sodium Hypochlorite (Dakins Diluted ()) 1 applic BID TP Last administered on 01/30/19 09:00; Admin Dose 1 APPLIC; Start 01/29/19 at 21:00 Midodrine (Proamatine) 5 mg TID@,13,17 PO Last administered on 01/30/19 13:15; Admin Dose 5 MG; Start 01/30/19 at 01:30 Sodium Bicarbonate 150 meq/Dextrose 1,150 ml @ 100 mls/hr [id number] IV Last administered on 01/30/19 10:30; Admin Dose 100 MLS/HR; Start 01/30/19 at 10:30 DEVROAH STEELE NP Jan 30, 2019 15:04
[2019-01-30] MEDS: MEROPENEM 1 GM/50ML(PMX) 50 ML IVPB SCH ×2 (16:40→23:59)
--- NOTE | 2019-01-30 18:43 | PN ---
Date/Time of Note Date/Time of Note DATE: 01/30/19 TIME: 18:39 Assessment/Plan VTE Prophylaxis Risk score (from Ns)>0 risk: 7 SCD applied (from [place]): Yes Pharmacological prophylaxis: NA/contraindicated Pharm contraindication: bleeding Lines/Catheters IV C[facility]ter Type (from [facility] Mid Line Urinary Cath still in place: Yes Reason Cath still needed: urinary retention Assessment/Plan Hospital Course 54 m with widely metastatic prostate Ca to the bone and spine who has been paraplegic since November 2018 with multiple decubitus ulcers who PW severe anemia and severe sepsis due to UTI and bacteremia by multiple MDR bacteria . 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 , s/p transfusion, HH daily and transfuse if Hb < 7 # Decubitus ulcers, seen by wound care , recommended surgical consult , DW Dr Us for I&D # Poor prognosis, widely metastatic prostate CA , paraplegia , multiple de cubitus ulcers , sepsis with multiple MDR bacteria anemia of malignancy , he remains full code , palliative consult #PPX: PPI , SCDs, Dispo ICU given persistent hypotension Result Diagram: 01/30/19 0332 01/30/19 0332 Results 24hrs Laboratory Tests Test 01/30/19 03:09 01/30/19 03:15 01/30/19 03:31 01/30/19 03:32 Bedside Glucose 135 Blood Gas Blood arterial Specimen Source Arterial Blood 01/30/2019 3:15: Date Drawn 34 AM Arterial Blood 7.211 *L pH (Temp corrected) Arterial Blood 42.9 pCO2 (Temp correct) Arterial Blood 148.2 H pO2 (Temp corrected) Arterial Blood 16.8 L HCO3 Arterial Blood -10.4 L Base Excess Arterial Blood 98.3 H Oxygen Saturatio n Derrell Test ACCEPTAB Arterial Blood Left Radial Gas Puncture Site Arterial 0.3 Blood Carboxyhem oglobin Arterial Blood 0.6 Methemoglobin Blood Gas A-a O2 15.3 Differential Oxyhemoglobin 97.4 Percent Blood Gas 37.0 Temperature Blood Gas NASAL CANNULA Modality FiO2 30.[address] DUTTA Critical Value Read Back Blood Gas MR Notified Whom Blood Gas 01/30/2019 3:23: Notified Time 13 AM Lactic Acid 4.1 *H Level Creatine Kinase 20 L Creatine Kinase 4.2 Index Creatinine 0.83 Kinase MB (Mass) Troponin I < 0.012 White Blood 4.1 #L Count Red Blood Count 2.51 L Hemoglobin 7.6 L Hematocrit 23.6 L Mean Corpuscular 94.0 Volume Mean Corpuscular 30.3 Hemoglobin Mean Corpuscular 32.2 Hemoglobin Luz Maria nt Red Cell 17.8 H Distribution Width Platelet Count 90 L Mean Platelet 10.0 Volume Immature 1.900 H Granulocytes % Neutrophils % 84.1 H Lymphocytes % 7.5 L Monocytes % 6.3 Eosinophils % 0.0 Basophils % 0.2 Nucleated Red 0.0 Blood Cells % Immature 0.080 H Granulocytes # Neutrophils # 3.5 Lymphocytes # 0.3 L Monocytes # 0.3 Eosinophils # 0.0 Basophils # 0.0 Nucleated Red 0.0 Blood Cells # Sodium Level 126 L Potassium Level 3.7 Chloride Level 103 Carbon Dioxide 17 L Level Anion Gap 6 Blood Urea 11 Nitrogen Creatinine 0.39 L Est Glomerular > 60 Filtrat Rate mL/min Glucose Level 112 Calcium Level 8.1 L Phosphorus Level 2.6 Magnesium Level 1.7 Total Bilirubin 0.3 Direct Bilirubin 0.00 Indirect 0.3 Bilirubin Aspartate Amino < 8 L Transf (AST/SGOT ) Alanine 10 L Aminotransferase (ALT/SGPT) Alkaline 234 H Phosphatase Total Protein 4.5 L Albumin 1.8 L Globulin 2.70 Albumin/Globulin 0.66 Ratio Test 01/30/19 07:00 01/30/19 09:24 01/30/19 16:37 Blood Gas Blood arterial Specimen Source Arterial Blood 01/30/2019 6:50: Date Drawn 25 AM Arterial Blood 7.317 L pH (Temp corrected) Arterial Blood 35.1 pCO2 (Temp correct) Arterial Blood 144.7 H pO2 (Temp corrected) Arterial Blood 17.6 L HCO3 Arterial Blood -7.8 L Base Excess Arterial Blood 98.6 H Oxygen Saturatio n Derrell Test ACCEPTAB Arterial Blood Left Radial Gas Puncture Site Arterial 0.3 Blood Carboxyhem oglobin Arterial Blood 0.5 Methemoglobin Blood Gas A-a O2 28.0 H Differential Oxyhemoglobin 97.8 Percent Blood Gas 37.0 Temperature Blood Gas 18.0 Respiration Rate Blood Gas Actual 19 Respiration Rate Blood Gas MASK - BIPAP Modality FiO2 30.0 Blood Gas 10 Pressure Support Blood Gas 18/8 IPAP/EPAP Ratio Blood Gas GA Notified Whom Blood Gas 01/30/2019 6:58: Notified Time 01 AM Creatine Kinase < 20 L Creatine Kinase Index Creatinine 0.89 Kinase MB (Mass) Troponin I < 0.012 Lactic Acid 3.5 *H Level Subjective 24 Hr Interval Summary Free Text/Dictation He was hypotensive yesterday PM . He had a vasovagal episode after FMS was placed yesterday . He was transferred to the ICU and was placed on Bi PAP . He was weaned to NC later during the day. Urology was consulted given hematuria and possible retention. Surgical consult was placed for I&D given multiple decubitus ulcers . He was started on Midodrine and boluses of IVF were ordered given hypotension Exam/Review of Systems Exam Vitals Vital Signs Date Temp Pulse Resp B/P (MAP) Pulse Ox O2 O2 Flow FiO2 Time Delivery Rate 01/30/19 100 2.0 17:23 01/30/19 89 16:00 01/30/19 30 09:20 01/30/19 98.9 14 89/66 (74) 06:30 01/30/19 Nasal 00:18 Cannula Intake and Output 01/29/19 01/29/19 01/30/19 1515:00 23:00 07:00 IntakeIntake Total 300 ml 3450 ml 1890 ml OutputOutput Total 360 ml 300 ml BalanceBalance 300 ml 3090 ml 1590 ml Exam Head: normocephalic, atraumatic Eyes: nl conjunctiva, EOMI, PERRL Neck: supple, non-tender Respiratory: clear to auscultation, normal air movement Cardiovascular: regular rate and rhythm, nl pulses Gastrointestinal: soft, non-tender Extremities: edema Neurological: SYSTEMS ARCHITECT II-XII intact, focal weakness (bilat LE paraplegic ), numbn ess (bilat LE, ) Multiple bilateral leg and sacral decubitus ulcers in multiple stages , sacral ulcer is stage 4 Results Results 24hrs Laboratory Tests Test 01/30/19 03:09 01/30/19 03:15 01/30/19 03:31 01/30/19 03:32 Bedside Glucose 135 Blood Gas Blood arterial Specimen Source Arterial Blood 01/30/2019 3:15: Date Drawn 34 AM Arterial Blood 7.211 *L pH (Temp corrected) Arterial Blood 42.9 pCO2 (Temp correct) Arterial Blood 148.2 H pO2 (Temp corrected) Arterial Blood 16.8 L HCO3 Arterial Blood -10.4 L Base Excess Arterial Blood 98.3 H Oxygen Saturatio n Derrell Test ACCEPTAB Arterial Blood Left Radial Gas Puncture Site Arterial 0.3 Blood Carboxyhem oglobin Arterial Blood 0.6 Methemoglobin Blood Gas A-a O2 15.3 Differential Oxyhemoglobin 97.4 Percent Blood Gas 37.0 Temperature Blood Gas NASAL CANNULA Modality FiO2 30.[address] DUTTA Critical Value Read Back Blood Gas MR Notified Whom Blood Gas 01/30/2019 3:23: Notified Time 13 AM Lactic Acid 4.1 *H Level Creatine Kinase 20 L Creatine Kinase 4.2 Index Creatinine 0.83 Kinase MB (Mass) Troponin I < 0.012 White Blood 4.1 #L Count Red Blood Count 2.51 L Hemoglobin 7.6 L Hematocrit 23.6 L Mean Corpuscular 94.0 Volume Mean Corpuscular 30.3 Hemoglobin Mean Corpuscular 32.2 Hemoglobin Luz Maria nt Red Cell 17.8 H Distribution Width Platelet Count 90 L Mean Platelet 10.0 Volume Immature 1.900 H Granulocytes % Neutrophils % 84.1 H Lymphocytes % 7.5 L Monocytes % 6.3 Eosinophils % 0.0 Basophils % 0.2 Nucleated Red 0.0 Blood Cells % Immature 0.080 H Granulocytes # Neutrophils # 3.5 Lymphocytes # 0.3 L Monocytes # 0.3 Eosinophils # 0.0 Basophils # 0.0 Nucleated Red 0.0 Blood Cells # Sodium Level 126 L Potassium Level 3.7 Chloride Level 103 Carbon Dioxide 17 L Level Anion Gap 6 Blood Urea 11 Nitrogen Creatinine 0.39 L Est Glomerular > 60 Filtrat Rate mL/min Glucose Level 112 Calcium Level 8.1 L Phosphorus Level 2.6 Magnesium Level 1.7 Total Bilirubin 0.3 Direct Bilirubin 0.00 Indirect 0.3 Bilirubin Aspartate Amino < 8 L Transf (AST/SGOT ) Alanine 10 L Aminotransferase (ALT/SGPT) Alkaline 234 H Phosphatase Total Protein 4.5 L Albumin 1.8 L Globulin 2.70 Albumin/Globulin 0.66 Ratio Test 01/30/19 07:00 01/30/19 09:24 01/30/19 16:37 Blood Gas Blood arterial Specimen Source Arterial Blood 01/30/2019 6:50: Date Drawn 25 AM Arterial Blood 7.317 L pH (Temp corrected) Arterial Blood 35.1 pCO2 (Temp correct) Arterial Blood 144.7 H pO2 (Temp corrected) Arterial Blood 17.6 L HCO3 Arterial Blood -7.8 L Base Excess Arterial Blood 98.6 H Oxygen Saturatio n Derrell Test ACCEPTAB Arterial Blood Left Radial Gas Puncture Site Arterial 0.3 Blood Carboxyhem oglobin Arterial Blood 0.5 Methemoglobin Blood Gas A-a O2 28.0 H Differential Oxyhemoglobin 97.8 Percent Blood Gas 37.0 Temperature Blood Gas 18.0 Respiration Rate Blood Gas Actual 19 Respiration Rate Blood Gas MASK - BIPAP Modality FiO2 30.0 Blood Gas 10 Pressure Support Blood Gas 18/8 IPAP/EPAP Ratio Blood Gas GA Notified Whom Blood Gas 01/30/2019 6:58: Notified Time 01 AM Creatine Kinase < 20 L Creatine Kinase Index Creatinine 0.89 Kinase MB (Mass) Troponin I < 0.012 Lactic Acid 3.5 *H Level Medications Medication Current Medications Acetaminophen (Tylenol Tab) 650 mg Q4H PRN PO fever Last administered on 01/29/19at 21:32; Admin Dose 650 MG; Start 01/25/19 at 18:00 Finasteride (Proscar) 5 mg DAILY PO Last administered on 01/29/19at 08:59; Admin Dose 5 MG; Start 01/26/19 at 09:00 Acetaminophen/ Hydrocodone Bitart ([place] (10/325)) 1 tab Q6H PRN PO MODERATE PAIN LEVEL 4-6 Last administered on 01/29/19at 13:30; Admin Dose 1 TAB; Start 01/25/19 at 18:00 Morphine Sulfate (Ms Contin (Er)) 15 mg Q12 PRN PO SEVERE PAIN LEVEL 7-10; Start 01/25/19 at 18:00 Pantoprazole (Protonix Tab) 40 mg DAILY@0600 PO Last administered on 01/29/19 05:28; Admin Dose 40 MG; Start 01/26/19 at 06:00 Senna (Senokot) 1 tab DAILY PO Last administered on 01/29/19 08:59; Admin Dose 1 TAB; Start 01/26/19 at 09:00 Tamsulosin HCl (Flomax) 0.4 mg DAILY PO Last administered on 01/29/19 08:52; Admin Dose 0.4 MG; Start 01/26/19 at 09:00 Miscellaneous Information DOSE = 160mg = 4 X 4... QHS XX Last administered on 01/29/19 23:57; Admin Dose 160 MG; Start 01/26/19 at 21:00 Linezolid 300 ml @ 300 mls/hr Q12 IVPB Last administered on 01/30/19 08:35; Admin Dose 300 MLS/HR; Start 01/28/19 at 10:00 Ondansetron HCl (Zofran Inj) 4 mg Q4H PRN IV NAUSEA AND/OR VOMITING Last administered on 01/29/19 09:40; Admin Dose 4 MG; Start 01/29/19 at 09:30 Sodium Hypochlorite (Dakins Diluted ()) 1 applic BID TP Last administered on 01/30/19 09:00; Admin Dose 1 APPLIC; Start 01/29/19 at 21:00 Midodrine (Proamatine) 5 mg TID@,13,17 PO Last administered on 01/30/19 16:40; Admin Dose 5 MG; Start 01/30/19 at 01:30 Sodium Bicarbonate 150 meq/Dextrose 1,150 ml @ 100 mls/hr [id number] IV Last administered on 01/30/19 10:30; Admin Dose 100 MLS/HR; Start 01/30/19 at 10:30 Meropenem/Sodium Chloride 50 ml @ 100 mls/hr Q8 IVPB Last administered on 01/30/19 16:40; Admin Dose 100 MLS/HR; Start 01/30/19 at 16:00 HAFSA CLEMONS MD Jan 30, 2019 18:43
--- NOTE | 2019-01-30 19:55 | CONS ---
Assessment/Plan Assessment/Plan Hospital Course (Demo Recall) This is a 54-year-old -[place] male, well-known to me, is known to have a history of metastatic prostate cancer. And he does have urinary retention and chronic indwelling Mcpherson catheter. He has had hematuria on and off. He is on medications for his prostate cancer. The patient is bedridden. He presented to the emergency room because of generalized weakness and was found to be very anemic with a hemoglobin of 4.3. He was transfused and a urological consultation was requested today as he has no urine output coming from the Mcpherson catheter. Mcpherson catheter that he has is in good position. I did irrigated and it does irrigate well. That indicates that he is not making urine. He most likely is third spacing as he has a lot of edema in the lower extremities pubic area penis and scrotum. From a urological standpoint we need to continue his medications that includes the Xtandi which he takes it at home. Also keep the Mcpherson catheter in place, elevate the scrotum on a towel all the time to help decrease the scrotal and penile swelling. He may need diuresis. And if no improvement one may need to do a CT scan of the abdomen and pelvis to see if there is pelvic adenopathy and hydronephrosis secondary to ureteral obstruction by the adenopathy. Consultation Date/Type/Reason Admit Date/Time Jan 26, 2019 at 09:33 Date of Consultation: Jan 30, 2019 Type of Consult Urology Reason for Consultation Metastatic prostate cancer and oliguria Requesting Provider: HAFSA CLEMONS MD Date/Time of Note DATE: 01/30/19 TIME: 19:44 Hx of Present Illness This is a 54-year-old -[place] male, well-known to me, is known to have a history of metastatic prostate cancer. And he does have urinary retention and chronic indwelling Mcpherson catheter. He has had hematuria on and off. He is on medications for his prostate cancer. The patient is bedridden. He presented to the emergency room because of generalized weakness and was found to be very anemic with a hemoglobin of 4.3. He was transfused and a urological consultation was requested today as he has no urine output coming from the Mcpherson catheter. Subjective hx not possible: pt critical Constitutional: other (Very weak) Eyes: no complaints ENT: no complaints Respiratory: No cough, No wheezing Cardiovascular: No chest pain Gastrointestinal: diarrhea Genitourinary: other (Large swelling of the scrotum and penis) Musculoskeletal: back pain (From metastatic prostate cancer) Skin: other (Has bedsores) Neurologic: no complaints Past Medical History Medical History: cancer (Metastatic prostate cancer), hypertension Home Meds Reported Medications Hydrocodone/Acetaminophen ([place] 10-325 Tablet) 1 Each Tablet, 1 EACH PO Q6 PRN for PAIN, TAB 01/25/19 Morphine Sulfate* (Ms Contin*) 15 Mg Tablet.sa, 15 MG PO Q12 PRN for PAIN, TAB 01/25/19 Metoprolol Tartrate* (Lopressor*) 25 Mg Tablet, 25 MG PO BID, #60 TAB if blood pressure is 110 or higher 01/25/19 Sennosides* (Senna Lax*) 8.6 Mg Tablet, 1 TAB PO DAILY, TAB 01/25/19 Enzalutamide (XTANDI) 40 Mg Capsule, 160 MG PO QHS, CAP pt has own med 01/25/19 Finasteride* (Finasteride*) 5 Mg Tablet, 5 MG PO DAILY, TAB 01/25/19 Pantoprazole* (Protonix*) 40 Mg Tablet.dr, 40 MG PO DAILY, TAB 01/25/19 Ferrous Sulfate* (Ferrous Sulfate*) 325 Mg Tabec, 325 MG PO BID, TAB 01/25/19 Tamsulosin Hcl* (Flomax*) 0.4 Mg Cap.er.24h, 0.4 MG PO DAILY, CAP 01/25/19 Discontinued Reported Medications Enzalutamide (XTANDI) 40 Mg Capsule, 160 MG PO, CAP 12/16/18 Discontinued Scripts Levofloxacin* (Levaquin*) 500 Mg Tablet, 500 MG PO DAILY for 7 Days, TAB Prov:JING BRICENO MD 12/16/18 Finasteride* (Finasteride*) 5 Mg Tablet, 5 MG PO DAILY for 30 Days, TAB Prov:JING BRICENO MD 12/16/18 Hydrocodone Bit-Acetaminophen (Hydrocodone Bit-APAP) 5-325MG Tablet, 1 TAB PO Q6H PRN for PAIN LEVEL 1-3 for 30 Days, TAB Prov:JING BRICENO MD 12/16/18 Gabapentin* (Gabapentin*) 300 Mg Capsule, 300 MG PO BID for 30 Days, CAP Prov:JING BRICENO MD 12/16/18 Metoprolol Tartrate* (Lopressor*) 25 Mg Tab, 25 MG PO BID for 30 Days, TAB Prov:JING BRICENO MD 12/16/18 Medications Current Medications Acetaminophen (Tylenol Tab) 650 mg Q4H PRN PO fever Last administered on 01/29/19 21:32; Admin Dose 650 MG; Start 01/25/19 at 18:00 Finasteride (Proscar) 5 mg DAILY PO Last administered on 01/29/19 08:59; Admin Dose 5 MG; Start 01/26/19 at 09:00 Acetaminophen/ Hydrocodone Bitart ([place] ()) 1 tab Q6H PRN PO MODERATE PAIN LEVEL 4-6 Last administered on 01/29/19 13:30; Admin Dose 1 TAB; Start 01/25/19 at 18:00 Morphine Sulfate (Ms Contin (Er)) 15 mg Q12 PRN PO SEVERE PAIN LEVEL 7-10; Start 01/25/19 at 18:00 Pantoprazole (Protonix Tab) 40 mg DAILY@0600 PO Last administered on 01/29/19 05:28; Admin Dose 40 MG; Start 01/26/19 at 06:00 Senna (Senokot) 1 tab DAILY PO Last administered on 01/29/19 08:59; Admin Dose 1 TAB; Start 01/26/19 at 09:00 Tamsulosin HCl (Flomax) 0.4 mg DAILY PO Last administered on 01/29/19 08:52; Admin Dose 0.4 MG; Start 01/26/19 at 09:00 Miscellaneous Information DOSE = 160mg = 4 X 4... QHS XX Last administered on 01/29/19 23:57; Admin Dose 160 MG; Start 01/26/19 at 21:00 Linezolid 300 ml @ 300 mls/hr Q12 IVPB Last administered on 01/30/19 08:35; Admin Dose 300 MLS/HR; Start 01/28/19 at 10:00 Ondansetron HCl (Zofran Inj) 4 mg Q4H PRN IV NAUSEA AND/OR VOMITING Last administered on 01/29/19 09:40; Admin Dose 4 MG; Start 01/29/19 at 09:30 Sodium Hypochlorite (Dakins Diluted (1/40)) 1 applic BID TP Last administered on 01/30/19at 09:00; Admin Dose 1 APPLIC; Start 01/29/19 at 21:00 Midodrine (Proamatine) 5 mg TID@,13,17 PO Last administered on 01/30/19at 16:40; Admin Dose 5 MG; Start 01/30/19 at 01:30 Sodium Bicarbonate 150 meq/Dextrose 1,150 ml @ 100 mls/hr [id number] IV Last administered on 01/30/19at 10:30; Admin Dose 100 MLS/HR; Start 01/30/19 at 10:30 Meropenem/Sodium Chloride 50 ml @ 100 mls/hr Q8 IVPB Last administered on 01/30/19 16:40; Admin Dose 100 MLS/HR; Start 01/30/19 at 16:00 Allergies: Coded Allergies: No Known Allergy (Unverified , 01/25/19) Past Surgical History Past Surgical Hx: noncontributory Social History Alcohol Use: none Smoking Status: Never smoker Drug Use: none Exam/Review of Systems Exam Vitals Vital Signs Date Temp Pulse Resp B/P (MAP) Pulse Ox O2 O2 Flow FiO2 Time Delivery Rate 01/30/19 86 18 95/71 (79) 100 Nasal 2.0 19:00 Cannula 01/30/19 97.8 16:00 01/30/19 30 09:20 Intake and Output 01/29/19 01/29/19 01/30/19 1515:00 23:00 07:00 IntakeIntake Total 300 ml 3450 ml 1890 ml OutputOutput Total 360 ml 300 ml BalanceBalance 300 ml 3090 ml 1590 ml Constitutional: alert, frail (And bedridden) Head: normocephalic Eyes: nl conjunctiva (Pale) Neck: supple Respiratory: normal air movement; No wheezing Cardiovascular: No jugular venous distention (JVD) Gastrointestinal: soft, other (Edema, mostly in the pubic area) Genitourinary - Male: other (Swollen penis and scrotum and indwelling Mcpherson catheter) Extremities: edema, pitting pedal edema Neurological: nl mental status Results Result Diagram: 01/30/19 0332 01/30/19 0332 Results 24hrs Laboratory Tests Test 6/13/19 03:09 01/30/19 03:15 01/30/19 03:31 01/30/19 03:32 Bedside Glucose 135 Blood Gas Blood arterial Specimen Source Arterial Blood 01/30/2019 3:15: Date Drawn 34 AM Arterial Blood 7.211 *L pH (Temp corrected) Arterial Blood 42.9 pCO2 (Temp correct) Arterial Blood 148.2 H pO2 (Temp corrected) Arterial Blood 16.8 L HCO3 Arterial Blood -10.4 L Base Excess Arterial Blood 98.3 H Oxygen Saturatio n Derrell Test ACCEPTAB Arterial Blood Left Radial Gas Puncture Site Arterial 0.3 Blood Carboxyhem oglobin Arterial Blood 0.6 Methemoglobin Blood Gas A-a O2 15.3 Differential Oxyhemoglobin 97.4 Percent Blood Gas 37.0 Temperature Blood Gas NASAL CANNULA Modality FiO2 30.[address] DUTTA Critical Value Read Back Blood Gas MR Notified Whom Blood Gas 01/30/2019 3:23: Notified Time 13 AM Lactic Acid 4.1 *H Level Creatine Kinase 20 L Creatine Kinase 4.2 Index Creatinine 0.83 Kinase MB (Mass) Troponin I < 0.012 White Blood 4.1 #L Count Red Blood Count 2.51 L Hemoglobin 7.6 L Hematocrit 23.6 L Mean Corpuscular 94.0 Volume Mean Corpuscular 30.3 Hemoglobin Mean Corpuscular 32.2 Hemoglobin Luz Maria nt Red Cell 17.8 H Distribution Width Platelet Count 90 L Mean Platelet 10.0 Volume Immature 1.900 H Granulocytes % Neutrophils % 84.1 H Lymphocytes % 7.5 L Monocytes % 6.3 Eosinophils % 0.0 Basophils % 0.2 Nucleated Red 0.0 Blood Cells % Immature 0.080 H Granulocytes # Neutrophils # 3.5 Lymphocytes # 0.3 L Monocytes # 0.3 Eosinophils # 0.0 Basophils # 0.0 Nucleated Red 0.0 Blood Cells # Sodium Level 126 L Potassium Level 3.7 Chloride Level 103 Carbon Dioxide 17 L Level Anion Gap 6 Blood Urea 11 Nitrogen Creatinine 0.39 L Est Glomerular > 60 Filtrat Rate mL/min Glucose Level 112 Calcium Level 8.1 L Phosphorus Level 2.6 Magnesium Level 1.7 Total Bilirubin 0.3 Direct Bilirubin 0.00 Indirect 0.3 Bilirubin Aspartate Amino < 8 L Transf (AST/SGOT ) Alanine 10 L Aminotransferase (ALT/SGPT) Alkaline 234 H Phosphatase Total Protein 4.5 L Albumin 1.8 L Globulin 2.70 Albumin/Globulin 0.66 Ratio Test 01/30/19 07:00 01/30/19 09:24 01/30/19 16:37 Blood Gas Blood arterial Specimen Source Arterial Blood 01/30/2019 6:50: Date Drawn 25 AM Arterial Blood 7.317 L pH (Temp corrected) Arterial Blood 35.1 pCO2 (Temp correct) Arterial Blood 144.7 H pO2 (Temp corrected) Arterial Blood 17.6 L HCO3 Arterial Blood -7.8 L Base Excess Arterial Blood 98.6 H Oxygen Saturatio n Derrell Test ACCEPTAB Arterial Blood Left Radial Gas Puncture Site Arterial 0.3 Blood Carboxyhem oglobin Arterial Blood 0.5 Methemoglobin Blood Gas A-a O2 28.0 H Differential Oxyhemoglobin 97.8 Percent Blood Gas 37.0 Temperature Blood Gas 18.0 Respiration Rate Blood Gas Actual 19 Respiration Rate Blood Gas MASK - BIPAP Modality FiO2 30.0 Blood Gas 10 Pressure Support Blood Gas 18/8 IPAP/EPAP Ratio Blood Gas MD Notified Whom Blood Gas 01/30/2019 6:58: Notified Time 01 AM Creatine Kinase < 20 L Creatine Kinase Index Creatinine 0.89 Kinase MB (Mass) Troponin I < 0.012 Lactic Acid 3.5 *H Level Procalcitonin 1.75 H Medications Medication Current Medications Acetaminophen (Tylenol Tab) 650 mg Q4H PRN PO fever Last administered on 01/29/19at 21:32; Admin Dose 650 MG; Start 01/25/19 at 18:00 Finasteride (Proscar) 5 mg DAILY PO Last administered on 01/29/19at 08:59; Admin Dose 5 MG; Start 01/26/19 at 09:00 Acetaminophen/ Hydrocodone Bitart ([place] (10/325)) 1 tab Q6H PRN PO MODERATE PAIN LEVEL 4-6 Last administered on 01/29/19at 13:30; Admin Dose 1 TAB; Start 01/25/19 at 18:00 Morphine Sulfate (Ms Contin (Er)) 15 mg Q12 PRN PO SEVERE PAIN LEVEL 7-10; Start 01/25/19 at 18:00 Pantoprazole (Protonix Tab) 40 mg DAILY@0600 PO Last administered on 01/29/19at 05:28; Admin Dose 40 MG; Start 01/26/19 at 06:00 Senna (Senokot) 1 tab DAILY PO Last administered on 01/29/19 08:59; Admin Dose 1 TAB; Start 01/26/19 at 09:00 Tamsulosin HCl (Flomax) 0.4 mg DAILY PO Last administered on 01/29/19 08:52; Admin Dose 0.4 MG; Start 01/26/19 at 09:00 Miscellaneous Information DOSE = 160mg = 4 X 4... QHS XX Last administered on 01/29/19 23:57; Admin Dose 160 MG; Start 01/26/19 at 21:00 Linezolid 300 ml @ 300 mls/hr Q12 IVPB Last administered on 01/30/19 08:35; Admin Dose 300 MLS/HR; Start 01/28/19 at 10:00 Ondansetron HCl (Zofran Inj) 4 mg Q4H PRN IV NAUSEA AND/OR VOMITING Last administered on 01/29/19 09:40; Admin Dose 4 MG; Start 01/29/19 at 09:30 Sodium Hypochlorite (Dakins Diluted ()) 1 applic BID TP Last administered on 01/30/19 09:00; Admin Dose 1 APPLIC; Start 01/29/19 at 21:00 Midodrine (Proamatine) 5 mg TID@,,17 PO Last administered on 01/30/19 16:40; Admin Dose 5 MG; Start 01/30/19 at 01:30 Sodium Bicarbonate 150 meq/Dextrose 1,150 ml @ 100 mls/hr [id number] IV Last administered on 01/30/19 10:30; Admin Dose 100 MLS/HR; Start 01/30/19 at 10:30 Meropenem/Sodium Chloride 50 ml @ 100 mls/hr Q8 IVPB Last administered on 01/30/19 16:40; Admin Dose 100 MLS/HR; Start 01/30/19 at 16:00 RYAN SEBASTIAN MD Jan 30, 2019 19:55
[2019-01-31] VITALS (57 sets, daily range): BP systolic 56–121; BP diastolic 22–79; PULSE 73–97; RESP 9–21
[2019-01-31] MEDS: MEROPENEM 1 GM/50ML(PMX) 50 ML IVPB SCH ×3 (05:45→21:33)
[2019-01-31] MEDS: PANTOPRAZOLE (EC) 40 MG TAB PO SCH (05:45)
[2019-01-31] MEDS: SENNA TAB PO SCH (09:00)
--- NOTE | 2019-01-31 09:21 | CONS ---
Assessment/Plan Assessment/Plan Assessment/Plan (Daily) Widely metastatic prostate cancer Status post chemotherapy Status post immunotherapy Status post XRT Multiple bony fractures secondary to the above Mental status changes Malnutrition Fluid and electrolyte abnormalities Urosepsis Long discussion with patient's . When he was better from a cognitive standpoint he had a long discussion concerning ongoing level of care. She is very clear that she does not want him to have cardiopulmonary resuscitation but consider a temporary trial intubation if he becomes extremely short of breath and there is some chance that he would be able to be successfully extubated in a short period of time. She is not interested in long-term intubation. Even this I have asked her to reconsider if patient requires intubation the chance of him being successfully removed from the ventilator is extremely low. However I would rather address the first issue of CPR and then when I return on Sunday will have another talk with her concerning intubation if absolutely necessary. I have explained to her that he has very poor prognosis and have given her an idea of less than a month of survival. I do not believe that this family will elect for any other aggressive intervention and patient probably would not qualify for that level of his current medical condition. We will change his CODE STATUS to DO NOT RESUSCITATE patient is a candidate for hospice care I will address this with patient's who is the decision maker for all of his ongoing level of care. At the time of discharge family members would like to take him home and I believe based upon my initial interaction with family members that would be very receptive to just hospice care. At this time I would suggest walking family members through the and dying process and not going directly to discontinuing current level of care. Consultation Date/Type/Reason Admit Date/Time Jan 26, 2019 at 09:33 Date/Time of Note DATE: 01/31/19 TIME: 09:13 Hx of Present Illness Stating a palliative care consultation on his very pleasant 54-year-old Afro- [place]yanese male who is in the intensive care unit [facility]. Patient was admitted to the intensive care unit with gram-negative sepsis probably secondary to urinary tract infection source.. Patient has widely metastatic prostate answer. All information taken from patient's at the bedside who is very pleasant. Patient was undergoing active chemotherapy last time received was a few months prior to this hospitalization. He was sent to [facility] having become extremely weak discontinuing oral intake and was found to have a hemoglobin level of 4.3. Also patient was hemodynamic compromise at this time. He was admitted to the hospital started on broad-spectrum IV antibiotic coverage appropriate consultation were called. However patient's overall prognosis appears to be extremely poor as he is still not eating not significantly improved from a metabolic standpoint developed mental status changes. Patient states he is not in pain. Patient at the bedside is very helpful in giving the past medical history. Cannot obtain patient is obtunded Past Medical History Medical History: cancer (Metastatic prostate cancer), hypertension Home Meds Reported Medications Hydrocodone/Acetaminophen (Five Points 10-325 Tablet) 1 Each Tablet, 1 EACH PO Q6 PRN for PAIN, TAB 01/25/19 Morphine Sulfate* (Ms Contin*) 15 Mg Tablet.sa, 15 MG PO Q12 PRN for PAIN, TAB 01/25/19 Metoprolol Tartrate* (Lopressor*) 25 Mg Tablet, 25 MG PO BID, #60 TAB if blood pressure is 110 or higher 01/25/19 Sennosides* (Senna Lax*) 8.6 Mg Tablet, 1 TAB PO DAILY, TAB 01/25/19 Enzalutamide (XTANDI) 40 Mg Capsule, 160 MG PO QHS, CAP pt has own med 01/25/19 Finasteride* (Finasteride*) 5 Mg Tablet, 5 MG PO DAILY, TAB 01/25/19 Pantoprazole* (Protonix*) 40 Mg Tablet.dr, 40 MG PO DAILY, TAB 01/25/19 Ferrous Sulfate* (Ferrous Sulfate*) 325 Mg Tabec, 325 MG PO BID, TAB 01/25/19 Tamsulosin Hcl* (Flomax*) 0.4 Mg Cap.er.24h, 0.4 MG PO DAILY, CAP 01/25/19 Discontinued Reported Medications Enzalutamide (XTANDI) 40 Mg Capsule, 160 MG PO, CAP 12/16/18 Discontinued Scripts Levofloxacin* (Levaquin*) 500 Mg Tablet, 500 MG PO DAILY for 7 Days, TAB Prov:JING BRICENO MD 12/16/18 Finasteride* (Finasteride*) 5 Mg Tablet, 5 MG PO DAILY for 30 Days, TAB Prov:JING BRICENO MD 12/16/18 Hydrocodone Bit-Acetaminophen (Hydrocodone Bit-APAP) 5-325MG Tablet, 1 TAB PO Q6H PRN for PAIN LEVEL 1-3 for 30 Days, TAB Prov:JING BRICENO MD 12/16/18 Gabapentin* (Gabapentin*) 300 Mg Capsule, 300 MG PO BID for 30 Days, CAP Prov:JING BRICENO MD 12/16/18 Metoprolol Tartrate* (Lopressor*) 25 Mg Tab, 25 MG PO BID for 30 Days, TAB Prov:JING BRICENO MD 12/16/18 Medications Current Medications Acetaminophen (Tylenol Tab) 650 mg Q4H PRN PO fever Last administered on 01/29/19 21:32; Admin Dose 650 MG; Start 01/25/19 at 18:00 Finasteride (Proscar) 5 mg DAILY PO Last administered on 01/29/19 08:59; Admin Dose 5 MG; Start 01/26/19 at 09:00 Acetaminophen/ Hydrocodone Bitart (Five Points ()) 1 tab Q6H PRN PO MODERATE PAIN LEVEL 4-6 Last administered on 01/29/19 13:30; Admin Dose 1 TAB; Start 01/25/19 at 18:00 Morphine Sulfate (Ms Contin (Er)) 15 mg Q12 PRN PO SEVERE PAIN LEVEL 7-10; Start 01/25/19 at 18:00 Pantoprazole (Protonix Tab) 40 mg DAILY@0600 PO Last administered on 01/31/19 05:45; Admin Dose 40 MG; Start 01/26/19 at 06:00 Senna (Senokot) 1 tab DAILY PO Last administered on 01/29/19 08:59; Admin Dose 1 TAB; Start 01/26/19 at 09:00 Tamsulosin HCl (Flomax) 0.4 mg DAILY PO Last administered on 01/29/19 08:52; Admin Dose 0.4 MG; Start 01/26/19 at 09:00 Miscellaneous Information DOSE = 160mg = 4 X 4... QHS XX Last administered on 01/30/19 22:54; Admin Dose 160 MG; Start 01/26/19 at 21:00 Linezolid 300 ml @ 300 mls/hr Q12 IVPB Last administered on 01/30/19 22:10; Admin Dose 300 MLS/HR; Start 01/28/19 at 10:00 Ondansetron HCl (Zofran Inj) 4 mg Q4H PRN IV NAUSEA AND/OR VOMITING Last administered on 01/29/19 09:40; Admin Dose 4 MG; Start 01/29/19 at 09:30 Sodium Hypochlorite (Dakins Diluted ()) 1 applic BID TP Last administered on 01/30/19at 22:48; Admin Dose 1 APPLIC; Start 01/29/19 at 21:00 Midodrine (Proamatine) 5 mg TID@09,13,17 PO Last administered on 01/30/19 16: 40; Admin Dose 5 MG; Start 01/30/19 at 01:30 Sodium Bicarbonate 150 meq/Dextrose 1,150 ml @ 100 mls/hr [id number] IV Last administered on 01/30/19 22:48; Admin Dose 100 MLS/HR; Start 01/30/19 at 10:30 Meropenem/Sodium Chloride 50 ml @ 100 mls/hr Q8 IVPB Last administered on 01/31/19 05:45; Admin Dose 100 MLS/HR; Start 01/30/19 at 16:00 Allergies: Coded Allergies: No Known Allergy (Unverified , 01/25/19) Past Surgical History Past Surgical Hx: noncontributory Social History Alcohol Use: none Smoking Status: Never smoker Drug Use: none Exam/Review of Systems Exam Vitals Vital Signs Date Temp Pulse Resp B/P (MAP) Pulse Ox O2 O2 Flow FiO2 Time Delivery Rate 01/31/19 92 91/73 (79) 100 06:00 01/31/19 30 05:50 01/31/19 21 05:00 01/30/19 2.0 22:00 01/30/19 97.8 20:00 01/30/19 Nasal 20:00 Cannula Intake and Output 01/30/19 01/30/19 01/31/19 1515:00 23:00 07:00 IntakeIntake Total 1700 ml 1700 ml 1190 ml OutputOutput Total 130 ml 10 ml 410 ml BalanceBalance 1570 ml 1690 ml 780 ml Constitutional: distress, frail, other (Diffuse, slow to answer questions) Psych: confusion Head: normocephalic, atraumatic Eyes: No nl conjunctiva, No EOMI, No nl lids, No nl sclera, No PERRL, No icteric, No fundi, disc, No other ENMT: No nl external ears & nose, No nl lips & teeth, No nl nasal mucosa & septum, No mucosa pink and moist, No intubated, No tympanic membranes, No other Genitourinary - Male: other (Massive scrotal edema) 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, nl mental status, nl speech, nl strength, confused, lethargic Skin: other (4+ bilateral lower extremity edema, massive scrotal edema) Results Result Diagram: 01/31/19 0431 01/31/19 0431 Results 24hrs Laboratory Tests Test 01/30/19 09:24 01/30/19 16:37 01/31/19 04:31 Creatine Kinase < 20 L Creatine Kinase Index Creatinine Kinase MB (Mass) 0.89 Troponin I < 0.012 Lactic Acid Level 3.5 *H Procalcitonin 1.75 H White Blood Count 3.8 L Red Blood Count 2.64 L Hemoglobin 7.8 L Hematocrit 24.6 L Mean Corpuscular Volume 93.2 Mean Corpuscular Hemoglobin 29.5 Mean Corpuscular Hemoglobin Concent 31.7 L Red Cell Distribution Width 18.0 H Platelet Count 99 L Mean Platelet Volume 10.3 Immature Granulocytes % 3.500 H Neutrophils % 84.0 H Segmented Neutrophils % (Manual) 76 Band Neutrophils % (Manual) 12 H Lymphocytes % 6.4 L Lymphocytes % (Manual) 6 L Monocytes % 6.1 Monocytes % (Manual) 4 Eosinophils % 0.0 Basophils % 0.0 Myelocytes % (Manual) 2 H Nucleated Red Blood Cells % 1 H Immature Granulocytes # 0.130 H Neutrophils # 3.2 Neutrophils # (Manual) 2.9 Band Neutrophils # 0.4 Lymphocytes (Manual) 0.2 L Lymphocytes # 0.2 L Monocytes # 0.2 L Monocytes # (Manual) 0.1 L Eosinophils # 0.0 Basophils # 0.0 Myelocytes # 0.0 Nucleated Red Blood Cells # 0.0 Platelet Estimate DECREASED Giant Platelets 1 H Polychromasia 1+ Poikilocytosis 2+ Anisocytosis 1+ Spherocytes 1+ Sodium Level 128 L Potassium Level 3.4 L Chloride Level 101 Carbon Dioxide Level 18 L Anion Gap 9 Blood Urea Nitrogen 12 Creatinine 0.45 L Est Glomerular Filtrat Rate mL/min > 60 Glucose Level 86 Calcium Level 8.5 Phosphorus Level 2.7 Magnesium Level 1.8 Total Bilirubin 0.3 Direct Bilirubin 0.00 Indirect Bilirubin 0.3 Aspartate Amino Transf (AST/SGOT) 9 L Alanine Aminotransferase (ALT/SGPT) 10 L Alkaline Phosphatase 215 H Total Protein 4.5 L Albumin 2.0 L Globulin 2.50 Albumin/Globulin Ratio 0.80 Prostate Specific Antigen 32.3 H Medications Medication Current Medications Acetaminophen (Tylenol Tab) 650 mg Q4H PRN PO fever Last administered on 01/29/19 21:32; Admin Dose 650 MG; Start 01/25/19 at 18:00 Finasteride (Proscar) 5 mg DAILY PO Last administered on 01/29/19 08:59; Admin Dose 5 MG; Start 01/26/19 at 09:00 Acetaminophen/ Hydrocodone Bitart (Five Points ()) 1 tab Q6H PRN PO MODERATE PA IN LEVEL 4-6 Last administered on 01/29/19 13:30; Admin Dose 1 TAB; Start 01/25/19 at 18:00 Morphine Sulfate (Ms Contin (Er)) 15 mg Q12 PRN PO SEVERE PAIN LEVEL 7-10; Start 01/25/19 at 18:00 Pantoprazole (Protonix Tab) 40 mg DAILY@0600 PO Last administered on 01/31/19 05:45; Admin Dose 40 MG; Start 01/26/19 at 06:00 Senna (Senokot) 1 tab DAILY PO Last administered on 01/29/19 08:59; Admin Dose 1 TAB; Start 01/26/19 at 09:00 Tamsulosin HCl (Flomax) 0.4 mg DAILY PO Last administered on 01/29/19 08:52; Admin Dose 0.4 MG; Start 01/26/19 at 09:00 Miscellaneous Information DOSE = 160mg = 4 X 4... QHS XX Last administered on 01/30/19 22:54; Admin Dose 160 MG; Start 01/26/19 at 21:00 Linezolid 300 ml @ 300 mls/hr Q12 IVPB Last administered on 01/30/19 22:10; Admin Dose 300 MLS/HR; Start 01/28/19 at 10:00 Ondansetron HCl (Zofran Inj) 4 mg Q4H PRN IV NAUSEA AND/OR VOMITING Last administered on 01/29/19 09:40; Admin Dose 4 MG; Start 01/29/19 at 09:30 Sodium Hypochlorite (Dakins Diluted ()) 1 applic BID TP Last administered on 01/30/19 22:48; Admin Dose 1 APPLIC; Start 01/29/19 at 21:00 Midodrine (Proamatine) 5 mg TID@09,13,17 PO Last administered on 01/30/19 16:40; Admin Dose 5 MG; Start 01/30/19 at 01:30 Sodium Bicarbonate 150 meq/Dextrose 1,150 ml @ 100 mls/hr [id number] IV Last administered on 01/30/19 22:48; Admin Dose 100 MLS/HR; Start 01/30/19 at 10:30 Meropenem/Sodium Chloride 50 ml @ 100 mls/hr Q8 IVPB Last administered on 01/31/19 05:45; Admin Dose 100 MLS/HR; Start 01/30/19 at 16:00 RONY ZAVALA Jan 31, 2019 09:21
[2019-01-31] MEDS: TAMSULOSIN (SR) 0.4 MG CAP PO SCH (09:32)
[2019-01-31] MEDS: MIDODRINE 5 MG TAB PO SCH ×3 (09:32→17:01)
[2019-01-31] MEDS: FINASTERIDE 5 MG TAB PO SCH (09:32)
[2019-01-31] MEDS: SODIUM BICARBONATE (IV ADD) 150 MEQ in DEXTROSE 5% 1,000 ML IV SCH ×2 (09:33→21:00)
[2019-01-31] MEDS: BALSAM PERU/CASTOR OIL 60 GM TUBE TOP SCH ×2 (09:35→21:35)
[2019-01-31] MEDS: HYDROCODONE/APAP (10/325) TAB PO PRN (09:38)
[2019-01-31] MEDS: DAKINS 0.0125%(1/40) 473 ML SOLUTION TP SCH ×3 (09:38→23:35)
--- NOTE | 2019-01-31 09:38 | CONS ---
Assessment/Plan Assessment/Plan Assessment/Plan (Daily) Assessment and recommendations; 1. Patient admitted with hypotension due to underlying cardia myopathy. 2. Superimposed sepsis. Patient currently on appropriate antimicrobial regimen. 3. History of metastatic prostate cancer with paraplegia. 4. Anemia and thrombocytopenia. 5. Hyponatremia. 6. Gram-positive bacteremia. 7. Interval improvement in hypotension. Continue current supportive care. Consultation Date/Type/Reason Admit Date/Time Jan 26, 2019 at 09:33 Initial Consult Date 01/30/19 Type of Consult Pulmonary/critical care Patient is a 54-year-old male who was admitted to the hospital with complaints of generalized weakness. Patient decompensated last night with hypotension requiring transfer to ICU. Patient however so far has not required any pressor support. By the time I saw him, patient is on BiPAP and is completely awake and alert. According to him shortness of breath is improving. He denies any fever, chills, any nausea vomiting or any abdominal pain. Past medical history; 1. Widely metastatic prostate cancer with paraplegia. 2. Likely underlying cardiomyopathy with congestive heart failure. 3. Chronic anemia and thrombocytopenia. Medications; reviewed. Allergies; none. Social history; noncontributory. Family history; noncontributory. Occupational history; patient is on disability. Review of systems; denies any headache, seizures. Any chest pain. Angina. Coughing or wheezing. Any sputum production or hemoptysis. Shortness of breath has improved. Denies any abdominal pain, nausea vomiting. Complains of chronic constipation. Complains of chronic back pain. Patient has lost weight. General exam; middle-aged male, awake and alert. On BiPAP. Currently in no distress. Requesting Provider: HAFSA CLEMONS MD Date/Time of Note DATE: 01/31/19 TIME: 09:36 24 HR Interval Summary Free Text/Dictation Patient's condition is stable. Remains awake and alert. Denies any shortness breath, chest pain. General exam; middle-aged male, awake alert, currently no distress. Exam/Review of Systems Exam Vitals Vital Signs Date Temp Pulse Resp B/P (MAP) Pulse Ox O2 O2 Flow FiO2 Time Delivery Rate 01/31/19 88 08:00 01/31/19 91/73 (79) 100 06:00 01/31/19 30 05:50 01/31/19 21 05:00 01/30/19 2.0 22:00 01/30/19 97.8 20:00 01/30/19 Nasal 20:00 Cannula Intake and Output 01/30/19 01/30/19 01/31/19 1515:00 23:00 07:00 IntakeIntake Total 1700 ml 1700 ml 1190 ml OutputOutput Total 130 ml 10 ml 410 ml BalanceBalance 1570 ml 1690 ml 780 ml Exam H ENT exam; supple neck, no lymphadenopathy. Positive JVD. No neck masses. Patient has fair dentition. Chest exam; diminished breath sounds bilaterally. S1-S2 audible, no murmurs. Regular rhythm. Abdomen exam; soft, protuberant. No organomegaly. Bowel sounds audible. Nontender. Extremity exam; trace edema. TALEND DEVELOPER exam; patient has stable paraplegia. Results Result Diagram: 01/31/19 0431 01/31/19 0431 Results 24hrs Laboratory Tests Test 01/30/19 16:37 01/31/19 04:31 Lactic Acid Level 3.5 *H Procalcitonin 1.75 H White Blood Count 3.8 L Red Blood Count 2.64 L Hemoglobin 7.8 L Hematocrit 24.6 L Mean Corpuscular Volume 93.2 Mean Corpuscular Hemoglobin 29.5 Mean Corpuscular Hemoglobin Concent 31.7 L Red Cell Distribution Width 18.0 H Platelet Count 99 L Mean Platelet Volume 10.3 Immature Granulocytes % 3.500 H Neutrophils % 84.0 H Segmented Neutrophils % (Manual) 76 Band Neutrophils % (Manual) 12 H Lymphocytes % 6.4 L Lymphocytes % (Manual) 6 L Monocytes % 6.1 Monocytes % (Manual) 4 Eosinophils % 0.0 Basophils % 0.0 Myelocytes % (Manual) 2 H Nucleated Red Blood Cells % 1 H Immature Granulocytes # 0.130 H Neutrophils # 3.2 Neutrophils # (Manual) 2.9 Band Neutrophils # 0.4 Lymphocytes (Manual) 0.2 L Lymphocytes # 0.2 L Monocytes # 0.2 L Monocytes # (Manual) 0.1 L Eosinophils # 0.0 Basophils # 0.0 Myelocytes # 0.0 Nucleated Red Blood Cells # 0.0 Platelet Estimate DECREASED Giant Platelets 1 H Polychromasia 1+ Poikilocytosis 2+ Anisocytosis 1+ Spherocytes 1+ Sodium Level 128 L Potassium Level 3.4 L Chloride Level 101 Carbon Dioxide Level 18 L Anion Gap 9 Blood Urea Nitrogen 12 Creatinine 0.45 L Est Glomerular Filtrat Rate mL/min > 60 Glucose Level 86 Calcium Level 8.5 Phosphorus Level 2.7 Magnesium Level 1.8 Total Bilirubin 0.3 Direct Bilirubin 0.00 Indirect Bilirubin 0.3 Aspartate Amino Transf (AST/SGOT) 9 L Alanine Aminotransferase (ALT/SGPT) 10 L Alkaline Phosphatase 215 H Total Protein 4.5 L Albumin 2.0 L Globulin 2.50 Albumin/Globulin Ratio 0.80 Prostate Specific Antigen 32.3 H Medications Medication Current Medications Acetaminophen (Tylenol Tab) 650 mg Q4H PRN PO fever Last administered on 01/29/19 21:32; Admin Dose 650 MG; Start 01/25/19 at 18:00 Finasteride (Proscar) 5 mg DAILY PO Last administered on 01/29/19 08:59; Admin Dose 5 MG; Start 01/26/19 at 09:00 Acetaminophen/ Hydrocodone Bitart (Coker (10/325)) 1 tab Q6H PRN PO MODERATE PAIN LEVEL 4-6 Last administered on 01/29/19 13:30; Admin Dose 1 TAB; Start 01/25/19 at 18:00 Morphine Sulfate (Ms Contin (Er)) 15 mg Q12 PRN PO SEVERE PAIN LEVEL 7-10; Start 01/25/19 at 18:00 Pantoprazole (Protonix Tab) 40 mg DAILY@0600 PO Last administered on 01/31/19 05:45; Admin Dose 40 MG; Start 01/26/19 at 06:00 Senna (Senokot) 1 tab DAILY PO Last administered on 01/29/19 08:59; Admin Dose 1 TAB; Start 01/26/19 at 09:00 Tamsulosin HCl (Flomax) 0.4 mg DAILY PO Last administered on 01/29/19 08:52; Admin Dose 0.4 MG; Start 01/26/19 at 09:00 Miscellaneous Information DOSE = 160mg = 4 X 4... QHS XX Last administered on 01/30/19 22:54; Admin Dose 160 MG; Start 01/26/19 at 21:00 Linezolid 300 ml @ 300 mls/hr Q12 IVPB Last administered on 01/30/19 22:10; Admin Dose 300 MLS/HR; Start 01/28/19 at 10:00 Ondansetron HCl (Zofran Inj) 4 mg Q4H PRN IV NAUSEA AND/OR VOMITING Last administered on 01/29/19 09:40; Admin Dose 4 MG; Start 01/29/19 at 09:30 Sodium Hypochlorite (Dakins Diluted ()) 1 applic BID TP Last administered on 01/30/19 22:48; Admin Dose 1 APPLIC; Start 01/29/19 at 21:00 Midodrine (Proamatine) 5 mg TID@,13,17 PO Last administered on 01/30/19 16:40; Admin Dose 5 MG; Start 01/30/19 at 01:30 Sodium Bicarbonate 150 meq/Dextrose 1,150 ml @ 100 mls/hr [id number] IV Last administered on 01/30/19 22:48; Admin Dose 100 MLS/HR; Start 01/30/19 at 10:30 Meropenem/Sodium Chloride 50 ml @ 100 mls/hr Q8 IVPB Last administered on 01/31/19 05:45; Admin Dose 100 MLS/HR; Start 01/30/19 at 16:00 ROBEL LAWTON Jan 31, 2019 09:38
[2019-01-31] MEDS ORDERED: POTASSIUM CHLORIDE (SR) 20 MEQ TAB PO STA ×3 (09:52→10:39)
[2019-01-31] MEDS ORDERED: SOD CHLORIDE 0.9% 1,000 ML IV ONE ×2 (10:00→19:30)
[2019-01-31] MEDS: ALBUMIN HUMAN 25% 50 ML IV SCH ×2 (10:15→17:02)
[2019-01-31] MEDS ORDERED: FUROSEMIDE 40 MG INJ IV ONE (10:30)
[2019-01-31] MEDS: LINEZOLID 600 MG/300 ML (PMX) 300 ML IVPB SCH (10:43)
[2019-01-31] MEDS ORDERED: SILVER NITRATE SWAB TOP ONE (14:50)
--- NOTE | 2019-01-31 15:23 | PN ---
"Date/Time of Note Date/Time of Note DATE: 01/31/19 TIME: 15:17 Assessment/Plan Lines/Catheters IV Catheter Type (from Nrs): Mid Line Mcpherson in Place (from Nrs): Yes Assessment/Plan Chief Complaint/Hosp Course 1. Multiple wounds -debridement of sacral wound today -podiatry consult for lower extremity ulcers -local care -frequent turning and off-loading -low air loss mattress -vitamin c -short term zinc -optimize nutrition 2. Sepsis: hypotensive likely 2/2 UTI plus bacteremia +/- infected sacral wound -Supportive care -Treat infections -Judicious fluid 3. UTI: -abx per sensitivity -frequent bladder emptying/cath care 4. Bacteremia -Antibiotics per sensitivity> per ID 5.Pancytopenia -Supportive 6.Hyponatremia: -Judicious fluid correction 7. Hypocalcemia with hypoalbuminemia: Likely multifactorial -Treat infections -Optimize nutrition 8. Metastatic prostate cancer: -Oncology follow-up 9. Chronic back pain: -Pain management Thank you, Subjective 24 Hr Interval Summary No fevers or chills. No cough. No seizure. No blood per mouth or rectum. Rectal tube. No vomiting. Still hypotensive. Off BiPAP. Minimal bloating. Labs noted. Exam/Review of Systems Vital Signs Vitals Vital Signs Date Temp Pulse Resp B/P (MAP) Pulse Ox O2 O2 Flow FiO2 Time Delivery Rate 01/31/19 86 98 12:00 01/31/19 17 95/71 (79) Nasal 2.0 11:00 Cannula 01/31/19 98.9 08:00 01/31/19 30 05:50 Intake and Output 01/30/19 01/30/19 01/31/19 1515:00 23:00 07:00 IntakeIntake Total 1700 ml 1700 ml 1190 ml OutputOutput Total 130 ml 10 ml 410 ml BalanceBalance 1570 ml 1690 ml 780 ml Exam Free Text/Dictation Constitutional: alert, responsive Psych: nl mood/affect; No anxiety Head: normocephalic, atraumatic Eyes: nl conjunctiva, EOMI, nl lids, nl sclera ENMT: nl external ears & nose, nl lips & teeth, mucosa pink and moist Neck: supple, non-tender; No jvd Respiratory: other (BiPAP); No congested cough, No labored breathing Cardiovascular: regular rate and rhythm, nl pulses, other (Sinus rhythm) Gastrointestinal: soft, non-tender; No distended, No tender Genitourinary - Male: nl penis; No nl scrotum (Minimal edema) Musculoskeletal: muscle weakness, other (Slight foot drop) Extremities: normal pulses, pitting pedal edema (1+) Neurological: responsive, flat affect No nl strength (Generalized weakness), No focal weakness Skin: nl turgor, other (Multiple wounds: Sacral coccyx: Slough and eschar, no periwound erythema or induration, purulent drainage | bilateral lower extremi ties: Eschar) Results Result Diagram: 01/31/19 0431 01/31/19 0431 MARILU LUNA MD Jan 31, 2019 15:23"
--- NOTE | 2019-01-31 15:27 | OPR ---
Date/Time of Note Date/Time of Note DATE: 01/31/19 TIME: 15:24 Operative Report Procedure Date: Jan 31, 2019 Preoperative Diagnosis Sacrococcygeal large stage IV decubitus ulcer with necrotic tissue Postoperative Diagnosis Same, 16 x 13 cm Operation/Procedure Performed Excisional debridement of skin, subcutaneous, fascia, muscle of sacrococcyx. 16 x 13 cm Surgeon Marilu Luna MD Inseamer Violeta Solomon, CL Anesthesia Type: other (None) Estimated Blood Loss: 10 - 50 ml's Transfusion none Specimen Tissue Grafts/Implants none Tubes/Drains None Complications none Pt Condition Post Procedure: stable Disposition: other (In his ICU room) Indications Per notes. Risks include but are not limited to bleeding, infection, abscess, seroma, leak, chronic wound, need for further surgeries,, chronic pain, need for re-operations or further surgeries, CA, stroke, PE, DVT, pneumonia, organ failures, or even . Procedure Description Patient was brought in on his own bed to the OR. Placed in lateral decubitus position. All pressure points were well-padded. Patient is already on antibiotics. Anesthesia was instituted. Timeout was performed. He was prepped and draped in usual sterile fashion. Using scalpel and curette, skin, subcutaneous, and muscle/fascia were excised down to healthier tissue. Hemostasis was obtained. Wound was irrigated and packed with 1/40 Dakin's soaked Kerlix. Dry dressing was applied. She was placed supine. Patient tolerated procedure well. MARILU LUNA MD Jan 31, 2019 15:27
--- NOTE | 2019-01-31 18:40 | CONS ---
Assessment/Plan Assessment/Plan Hospital Course (Demo Recall) - Severe sepsis 2/2 E. Coli bacteremia and polymicrobial UTI +/- sacrococcyx pressure ulcer infection - E. Coli bacteremia on 01/25/2019 - CAUTI d/t VRE, MRSA, and C. albicans - Recurrent funguria - Acute hypoxic respiratory failure- s/p Bipap, now weaned back to O2 at 2L via NC - Lactic acidosis - Acute on chronic anemia requiring PRBC - Thrombocytopenia - improving - Pancytopenia - Symptomatic bradycardia - HR improved - Unstageable sacrococcyx pressure ulcer - Multiple wounds - Hyponatremia - Hypocalcemia - Metastatic prostate cancer - Chronic back pain - Paraplegic - Severe hypoalbuminemia with anasarca - Severe protein calorie malnutrition - -s/p evaquin (01/28/2019-01/29/2019) Recommendations: - Oawait yesterdays finch culture, lactic acid, procalcitonin - cont. IV meropenem (01/30/2019-) - Change IV linezolid (01/28/2019-) to Dapto - F/u wound cx and repeat blood cx from 01/29/2019 (in process) - We recommend TTE to r/o endocarditis if aggressive care desired - Serial lactic acid - Trend CBC and CrCl - agree with palliative approach and transition to comfort care if family/patient amenable Consultation Date/Type/Reason Admit Date/Time Jan 26, 2019 at 09:33 Initial Consult Date 01/28/19 Type of Consult ID Requesting Provider: HAFSA CLEMONS MD Date/Time of Note DATE: 01/31/19 TIME: 18:36 cct2h 24 HR Interval Summary Free Text/Dictation d/w nursing. s/p debridement. Exam/Review of Systems Exam Vitals Vital Signs Date Temp Pulse Resp B/P (MAP) Pulse Ox O2 O2 Flow FiO2 Time Delivery Rate 01/31/19 2.0 17:58 01/31/19 83 16:00 01/31/19 11 92 15:00 01/31/19 74/45 (55) Nasal 14:00 Cannula 01/31/19 96.2 12:00 01/31/19 30 05:50 Intake and Output 01/30/19 01/30/19 01/31/19 1515:00 23:00 07:00 IntakeIntake Total 1700 ml 1700 ml 1190 ml OutputOutput Total 130 ml 10 ml 410 ml BalanceBalance 1570 ml 1690 ml 780 ml Exam somnolent. sleeping. 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 Skin: other (markedly edematous) Results Result Diagram: 01/31/19 0431 01/31/19 0431 Results 24hrs Laboratory Tests Test 01/31/19 04:31 White Blood Count 3.8 L Red Blood Count 2.64 L Hemoglobin 7.8 L Hematocrit 24.6 L Mean Corpuscular Volume 93.2 Mean Corpuscular Hemoglobin 29.5 Mean Corpuscular Hemoglobin Concent 31.7 L Red Cell Distribution Width 18.0 H Platelet Count 99 L Mean Platelet Volume 10.3 Immature Granulocytes % 3.500 H Neutrophils % 84.0 H Segmented Neutrophils % (Manual) 76 Band Neutrophils % (Manual) 12 H Lymphocytes % 6.4 L Lymphocytes % (Manual) 6 L Monocytes % 6.1 Monocytes % (Manual) 4 Eosinophils % 0.0 Basophils % 0.0 Myelocytes % (Manual) 2 H Nucleated Red Blood Cells % 1 H Immature Granulocytes # 0.130 H Neutrophils # 3.2 Neutrophils # (Manual) 2.9 Band Neutrophils # 0.4 Lymphocytes (Manual) 0.2 L Lymphocytes # 0.2 L Monocytes # 0.2 L Monocytes # (Manual) 0.1 L Eosinophils # 0.0 Basophils # 0.0 Myelocytes # 0.0 Nucleated Red Blood Cells # 0.0 Platelet Estimate DECREASED Giant Platelets 1 H Polychromasia 1+ Poikilocytosis 2+ Anisocytosis 1+ Spherocytes 1+ Sodium Level 128 L Potassium Level 3.4 L Chloride Level 101 Carbon Dioxide Level 18 L Anion Gap 9 Blood Urea Nitrogen 12 Creatinine 0.45 L Est Glomerular Filtrat Rate mL/min > 60 Glucose Level 86 Calcium Level 8.5 Phosphorus Level 2.7 Magnesium Level 1.8 Total Bilirubin 0.3 Direct Bilirubin 0.00 Indirect Bilirubin 0.3 Aspartate Amino Transf (AST/SGOT) 9 L Alanine Aminotransferase (ALT/SGPT) 10 L Alkaline Phosphatase 215 H Total Protein 4.5 L Albumin 2.0 L Globulin 2.50 Albumin/Globulin Ratio 0.80 Prostate Specific Antigen 32.3 H Medications Medication Current Medications Acetaminophen (Tylenol Tab) 650 mg Q4H PRN PO fever Last administered on 01/29/19 21:32; Admin Dose 650 MG; Start 01/25/19 at 18:00 Finasteride (Proscar) 5 mg DAILY PO Last administered on 01/31/19 09:32; Admin Dose 5 MG; Start 01/26/19 at 09:00 Acetaminophen/ Hydrocodone Bitart ([place] (10)) 1 tab Q6H PRN PO MODERATE PAIN LEVEL 4-6 Last administered on 01/31/19 09:38; Admin Dose 1 TAB; Start 01/25/19 at 18:00 Morphine Sulfate (Ms Contin (Er)) 15 mg Q12 PRN PO SEVERE PAIN LEVEL 7-10; Start 01/25/19 at 18:00 Pantoprazole (Protonix Tab) 40 mg DAILY@0600 PO Last administered on 01/31/19 05:45; Admin Dose 40 MG; Start 01/26/19 at 06:00 Senna (Senokot) 1 tab DAILY PO Last administered on 01/29/19 08:59; Admin Dose 1 TAB; Start 01/26/19 at 09:00 Tamsulosin HCl (Flomax) 0.4 mg DAILY PO Last administered on 01/31/19 09:32; Admin Dose 0.4 MG; Start 01/26/19 at 09:00 Miscellaneous Information DOSE = 160mg = 4 X 4... QHS XX Last administered on 01/30/19 22:54; Admin Dose 160 MG; Start 01/26/19 at 21:00 Linezolid 300 ml @ 300 mls/hr Q12 IVPB Last administered on 01/31/19 10:43; Admin Dose 300 MLS/HR; Start 01/28/19 at 10:00 Ondansetron HCl (Zofran Inj) 4 mg Q4H PRN IV NAUSEA AND/OR VOMITING Last administered on 01/29/19 09:40; Admin Dose 4 MG; Start 01/29/19 at 09:30 Sodium Hypochlorite (Dakins Diluted ()) 1 applic BID TP Last administered on 01/31/19 09:38; Admin Dose 1 APPLIC; Start 01/29/19 at 21:00 Sodium Bicarbonate 150 meq/Dextrose 1,150 ml @ 100 mls/hr [id number] IV Last administered on 01/31/19at 09:33; Admin Dose 100 MLS/HR; Start 01/30/19 at 10:30 Meropenem/Sodium Chloride 50 ml @ 100 mls/hr Q8 IVPB Last administered on 01/31/19at 14:00; Admin Dose 100 MLS/HR; Start 01/30/19 at 16:00 Albumin Human 50 ml @ 100 mls/hr Q8H IV Last administered on 01/31/19at 17:02; Admin Dose 100 MLS/HR; Start 01/31/19 at 10:00; Stop 02/01/19 at 02:29 Midodrine (Proamatine) 10 mg TID@,,17 PO Last administered on 01/31/19at 17:01; Admin Dose 10 MG; Start 01/31/19 at 17:00 JULY BRENNAN MD Jan 31, 2019 18:40
--- NOTE | 2019-01-31 19:50 | PN ---
Date/Time of Note Date/Time of Note DATE: 01/31/19 TIME: 19:45 Assessment/Plan VTE Prophylaxis Risk score (from Ns)>0 risk: 8 SCD applied (from [facility] [place] Yes Pharmacological prophylaxis: NA/contraindicated Pharm contraindication: bleeding Lines/Catheters IV Catheter Type (from Nrsg): Mid Line Urinary Cath still in place: Yes Reason Cath still needed: urinary retention, terminal illness/intractable pain Assessment/Plan Hospital Course 54 m with widely metastatic prostate Ca to the bone and spine who has been paraplegic since November 2018 with multiple decubitus ulcers who PW severe anemia and severe sepsis due to UTI and bacteremia by multiple MDR bacteria . # Severe sepsis due to complicated UTI with MRSA and VRE , E coli bacteremia , Staph aureus bacteremia and infected decubitus ulcers #Lactic acidosis - follow up with ID recs , currently on Dapto and Meropenem - IVF boluses PRN for MAP < 65 , - IV Albumin 25 Q8h - Midodrine 10 mg TID -S/p bedside I&D by general surgery - seen by Urology for possible retention , #Anasarca with severe LE and scrotal dependent edema , s/p extensive fluid resuscitation - Lasix IV if BP allows #Metabolic acidosis - IVF: D5 + Bicarb #Vasovagal syncope with bradycardia , s/p FMS , resolved #Respiratory failure with hypoxia due to syncopal episode , s/p BIPAP , weaned to NC O2 #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 , #Urinary retention - Urology consult to Dr Kenney - Palliative consulted , patient is DNR DNI now # 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 , s/p transfusion, HH daily and transfuse if Hb < 7 # Decubitus ulcers, seen by wound care , recommended surgical consult , seen by Dr Us for I&D # Poor prognosis, widely metastatic prostate CA , paraplegia , multiple decubitus ulcers , sepsis with multiple MDR bacteria anemia of malignancy , he was seen by palliative and now DNR DNI #PPX: PPI , SCDs, Transfer to [facility] , urology , RN, general surgery , palliative Result Diagram: 01/31/19 0431 01/31/19 0431 Results 24hrs Laboratory Tests Test 01/31/19 04:31 White Blood Count 3.8 L Red Blood Count 2.64 L Hemoglobin 7.8 L Hematocrit 24.6 L Mean Corpuscular Volume 93.2 Mean Corpuscular Hemoglobin 29.5 Mean Corpuscular Hemoglobin Concent 31.7 L Red Cell Distribution Width 18.0 H Platelet Count 99 L Mean Platelet Volume 10.3 Immature Granulocytes % 3.500 H Neutrophils % 84.0 H Segmented Neutrophils % (Manual) 76 Band Neutrophils % (Manual) 12 H Lymphocytes % 6.4 L Lymphocytes % (Manual) 6 L Monocytes % 6.1 Monocytes % (Manual) 4 Eosinophils % 0.0 Basophils % 0.0 Myelocytes % (Manual) 2 H Nucleated Red Blood Cells % 1 H Immature Granulocytes # 0.130 H Neutrophils # 3.2 Neutrophils # (Manual) 2.9 Band Neutrophils # 0.4 Lymphocytes (Manual) 0.2 L Lymphocytes # 0.2 L Monocytes # 0.2 L Monocytes # (Manual) 0.1 L Eosinophils # 0.0 Basophils # 0.0 Myelocytes # 0.0 Nucleated Red Blood Cells # 0.0 Platelet Estimate DECREASED Giant Platelets 1 H Polychromasia 1+ Poikilocytosis 2+ Anisocytosis 1+ Spherocytes 1+ Sodium Level 128 L Potassium Level 3.4 L Chloride Level 101 Carbon Dioxide Level 18 L Anion Gap 9 Blood Urea Nitrogen 12 Creatinine 0.45 L Est Glomerular Filtrat Rate mL/min > 60 Glucose Level 86 Calcium Level 8.5 Phosphorus Level 2.7 Magnesium Level 1.8 Total Bilirubin 0.3 Direct Bilirubin 0.00 Indirect Bilirubin 0.3 Aspartate Amino Transf (AST/SGOT) 9 L Alanine Aminotransferase (ALT/SGPT) 10 L Alkaline Phosphatase 215 H Total Protein 4.5 L Albumin 2.0 L Globulin 2.50 Albumin/Globulin Ratio 0.80 Prostate Specific Antigen 32.3 H Subjective 24 Hr Interval Summary Free Text/Dictation Very weak and debilitated Exam/Review of Systems Exam Vitals Vital Signs Date Temp Pulse Resp B/P (MAP) Pulse Ox O2 O2 Flow FiO2 Time Delivery Rate 01/31/19 2.0 17:58 01/31/19 83 16:00 01/31/19 9 76/49 (58) 99 Nasal 16:00 Cannula 01/31/19 96.2 12:00 01/31/19 30 05:50 Intake and Output 01/30/19 01/30/19 01/31/19 1515:00 23:00 07:00 IntakeIntake Total 1700 ml 1700 ml 1190 ml OutputOutput Total 130 ml 10 ml 410 ml BalanceBalance 1570 ml 1690 ml 780 ml Exam Head: normocephalic, atraumatic Eyes: nl conjunctiva, EOMI, PERRL Neck: supple, non-tender Respiratory: clear to auscultation, normal air movement Cardiovascular: regular rate and rhythm, nl pulses Gastrointestinal: soft, non-tender Extremities: edema, severe scrotal edema Neurological: COMMUNITY HEALTH WORKER II-XII intact, focal weakness (bilat LE paraplegic ), numbn ess (bilat LE, ) Multiple bilateral leg and sacral decubitus ulcers in multiple stages , sacral ulcer is stage 4 Results Results 24hrs Laboratory Tests Test 01/31/19 04:31 White Blood Count 3.8 L Red Blood Count 2.64 L Hemoglobin 7.8 L Hematocrit 24.6 L Mean Corpuscular Volume 93.2 Mean Corpuscular Hemoglobin 29.5 Mean Corpuscular Hemoglobin Concent 31.7 L Red Cell Distribution Width 18.0 H Platelet Count 99 L Mean Platelet Volume 10.3 Immature Granulocytes % 3.500 H Neutrophils % 84.0 H Segmented Neutrophils % (Manual) 76 Band Neutrophils % (Manual) 12 H Lymphocytes % 6.4 L Lymphocytes % (Manual) 6 L Monocytes % 6.1 Monocytes % (Manual) 4 Eosinophils % 0.0 Basophils % 0.0 Myelocytes % (Manual) 2 H Nucleated Red Blood Cells % 1 H Immature Granulocytes # 0.130 H Neutrophils # 3.2 Neutrophils # (Manual) 2.9 Band Neutrophils # 0.4 Lymphocytes (Manual) 0.2 L Lymphocytes # 0.2 L Monocytes # 0.2 L Monocytes # (Manual) 0.1 L Eosinophils # 0.0 Basophils # 0.0 Myelocytes # 0.0 Nucleated Red Blood Cells # 0.0 Platelet Estimate DECREASED Giant Platelets 1 H Polychromasia 1+ Poikilocytosis 2+ Anisocytosis 1+ Spherocytes 1+ Sodium Level 128 L Potassium Level 3.4 L Chloride Level 101 Carbon Dioxide Level 18 L Anion Gap 9 Blood Urea Nitrogen 12 Creatinine 0.45 L Est Glomerular Filtrat Rate mL/min > 60 Glucose Level 86 Calcium Level 8.5 Phosphorus Level 2.7 Magnesium Level 1.8 Total Bilirubin 0.3 Direct Bilirubin 0.00 Indirect Bilirubin 0.3 Aspartate Amino Transf (AST/SGOT) 9 L Alanine Aminotransferase (ALT/SGPT) 10 L Alkaline Phosphatase 215 H Total Protein 4.5 L Albumin 2.0 L Globulin 2.50 Albumin/Globulin Ratio 0.80 Prostate Specific Antigen 32.3 H Medications Medication Current Medications Acetaminophen (Tylenol Tab) 650 mg Q4H PRN PO fever Last administered on 01/29/19 21:32; Admin Dose 650 MG; Start 01/25/19 at 18:00 Finasteride (Proscar) 5 mg DAILY PO Last administered on 01/31/19 09:32; Admin Dose 5 MG; Start 01/26/19 at 09:00 Acetaminophen/ Hydrocodone Bitart ([place] ()) 1 tab Q6H PRN PO MODERATE PAIN LEVEL 4-6 Last administered on 01/31/19 09:38; Admin Dose 1 TAB; Start 01/25/19 at 18:00 Morphine Sulfate (Ms Contin (Er)) 15 mg Q12 PRN PO SEVERE PAIN LEVEL 7-10; Start 01/25/19 at 18:00 Pantoprazole (Protonix Tab) 40 mg DAILY@0600 PO Last administered on 01/31/19 05:45; Admin Dose 40 MG; Start 01/26/19 at 06:00 Senna (Senokot) 1 tab DAILY PO Last administered on 01/29/19 08:59; Admin Dose 1 TAB; Start 01/26/19 at 09:00 Tamsulosin HCl (Flomax) 0.4 mg DAILY PO Last administered on 01/31/19 09:32; Admin Dose 0.4 MG; Start 01/26/19 at 09:00 Miscellaneous Information DOSE = 160mg = 4 X 4... QHS XX Last administered on 01/30/19 22:54; Admin Dose 160 MG; Start 01/26/19 at 21:00 Ondansetron HCl (Zofran Inj) 4 mg Q4H PRN IV NAUSEA AND/OR VOMITING Last administered on 01/29/19 09:40; Admin Dose 4 MG; Start 01/29/19 at 09:30 Sodium Hypochlorite (Dakins Diluted ()) 1 applic BID TP Last administered on 01/31/19 09:38; Admin Dose 1 APPLIC; Start 01/29/19 at 21:00 Sodium Bicarbonate 150 meq/Dextrose 1,150 ml @ 100 mls/hr [id number] IV Last administered on 01/31/19at 09:33; Admin Dose 100 MLS/HR; Start 01/30/19 at 10:30 Meropenem/Sodium Chloride 50 ml @ 100 mls/hr Q8 IVPB Last administered on 01/31/19at 14:00; Admin Dose 100 MLS/HR; Start 01/30/19 at 16:00 Albumin Human 50 ml @ 100 mls/hr Q8H IV Last administered on 01/31/19at 17:02; Admin Dose 100 MLS/HR; Start 01/31/19 at 10:00; Stop 02/01/19 at 02:29 Midodrine (Proamatine) 10 mg TID@09,13,17 PO Last administered on 01/31/19at 17:01; Admin Dose 10 MG; Start 01/31/19 at 17:00 Daptomycin 500 mg/ Sodium Chloride 100 ml @ 200 mls/hr Q24H IVPB ; Start 01/31/19 at 21:00 Sodium Chloride 1,000 ml @ 1,000 mls/hr Q1H ONCE IV ; Start 01/31/19 at 19:30; Stop 01/31/19 at 20:29 HAFSA CLEMONS MD Jan 31, 2019 19:50
[2019-01-31] MEDS: NORepinephrine 8MG/250 ML (PMX 250 ML IV SCH (20:47)
--- NOTE | 2019-01-31 20:50 | CONS ---
Consult Date/Type/Reason Admit Date/Time Jan 26, 2019 at 09:33 Initial Consult Date 01/30/19 Type of Consultation: Urology Reason for Consultation Metastatic prostate cancer Requesting Provider: HAFSA CLEMONS MD Date/Time of Note DATE: 01/31/19 TIME: 20:46 Subjective Patient condition is worsening. His is at his bedside and requesting that we change his Mcpherson catheter as she thinks that there is no urine output because the catheter is blocked. I had yesterday irrigated the catheter in front of her and showed her that the catheter is draining and it is not blocked. She continues to insist to change the catheter I informed her that he has a lot of swelling and that may be difficult to change it but I will try. Objective Vitals Vital Signs Date Temp Pulse Resp B/P (MAP) Pulse Ox O2 O2 Flow FiO2 Time Delivery Rate 01/31/19 81 20:00 01/31/19 2.0 17:58 01/31/19 9 76/49 (58) 99 Nasal 16:00 Cannula 01/31/19 96.2 12:00 01/31/19 30 05:50 Intake and Output 01/30/19 01/30/19 01/31/19 1515:00 23:00 07:00 IntakeIntake Total 1700 ml 1700 ml 1190 ml OutputOutput Total 130 ml 10 ml 410 ml BalanceBalance 1570 ml 1690 ml 780 ml Exam Very swollen penis and scrotum in addition to edema of the legs and abdomen. Results/Medications Result Diagram: 01/31/19 0431 01/31/19 0431 Results 24 hrs Laboratory Tests Test 01/31/19 04:31 White Blood Count 3.8 L Red Blood Count 2.64 L Hemoglobin 7.8 L Hematocrit 24.6 L Mean Corpuscular Volume 93.2 Mean Corpuscular Hemoglobin 29.5 Mean Corpuscular Hemoglobin Concent 31.7 L Red Cell Distribution Width 18.0 H Platelet Count 99 L Mean Platelet Volume 10.3 Immature Granulocytes % 3.500 H Neutrophils % 84.0 H Segmented Neutrophils % (Manual) 76 Band Neutrophils % (Manual) 12 H Lymphocytes % 6.4 L Lymphocytes % (Manual) 6 L Monocytes % 6.1 Monocytes % (Manual) 4 Eosinophils % 0.0 Basophils % 0.0 Myelocytes % (Manual) 2 H Nucleated Red Blood Cells % 1 H Immature Granulocytes # 0.130 H Neutrophils # 3.2 Neutrophils # (Manual) 2.9 Band Neutrophils # 0.4 Lymphocytes (Manual) 0.2 L Lymphocytes # 0.2 L Monocytes # 0.2 L Monocytes # (Manual) 0.1 L Eosinophils # 0.0 Basophils # 0.0 Myelocytes # 0.0 Nucleated Red Blood Cells # 0.0 Platelet Estimate DECREASED Giant Platelets 1 H Polychromasia 1+ Poikilocytosis 2+ Anisocytosis 1+ Spherocytes 1+ Sodium Level 128 L Potassium Level 3.4 L Chloride Level 101 Carbon Dioxide Level 18 L Anion Gap 9 Blood Urea Nitrogen 12 Creatinine 0.45 L Est Glomerular Filtrat Rate mL/min > 60 Glucose Level 86 Calcium Level 8.5 Phosphorus Level 2.7 Magnesium Level 1.8 Total Bilirubin 0.3 Direct Bilirubin 0.00 Indirect Bilirubin 0.3 Aspartate Amino Transf (AST/SGOT) 9 L Alanine Aminotransferase (ALT/SGPT) 10 L Alkaline Phosphatase 215 H Total Protein 4.5 L Albumin 2.0 L Globulin 2.50 Albumin/Globulin Ratio 0.80 Prostate Specific Antigen 32.3 H Home Meds Reported Medications Hydrocodone/Acetaminophen ([place] 10-325 Tablet) 1 Each Tablet, 1 EACH PO Q6 PRN for PAIN, TAB 01/25/19 Morphine Sulfate* (Ms Contin*) 15 Mg Tablet.sa, 15 MG PO Q12 PRN for PAIN, TAB 01/25/19 Metoprolol Tartrate* (Lopressor*) 25 Mg Tablet, 25 MG PO BID, #60 TAB if blood pressure is 110 or higher 01/25/19 Sennosides* (Senna Lax*) 8.6 Mg Tablet, 1 TAB PO DAILY, TAB 01/25/19 Enzalutamide (XTANDI) 40 Mg Capsule, 160 MG PO QHS, CAP pt has own med 01/25/19 Finasteride* (Finasteride*) 5 Mg Tablet, 5 MG PO DAILY, TAB 01/25/19 Pantoprazole* (Protonix*) 40 Mg Tablet.dr, 40 MG PO DAILY, TAB 01/25/19 Ferrous Sulfate* (Ferrous Sulfate*) 325 Mg Tabec, 325 MG PO BID, TAB 01/25/19 Tamsulosin Hcl* (Flomax*) 0.4 Mg Cap.er.24h, 0.4 MG PO DAILY, CAP 01/25/19 Discontinued Reported Medications Enzalutamide (XTANDI) 40 Mg Capsule, 160 MG PO, CAP 12/16/18 Discontinued Scripts Levofloxacin* (Levaquin*) 500 Mg Tablet, 500 MG PO DAILY for 7 Days, TAB Prov:JING BRICENO MD 12/16/18 Finasteride* (Finasteride*) 5 Mg Tablet, 5 MG PO DAILY for 30 Days, TAB Prov:JING BRICENO MD 12/16/18 Hydrocodone Bit-Acetaminophen (Hydrocodone Bit-APAP) 5-325MG Tablet, 1 TAB PO Q6H PRN for PAIN LEVEL 1-3 for 30 Days, TAB Prov:JING BRICENO MD 12/16/18 Gabapentin* (Gabapentin*) 300 Mg Capsule, 300 MG PO BID for 30 Days, CAP Prov:JING BRICENO MD 12/16/18 Metoprolol Tartrate* (Lopressor*) 25 Mg Tab, 25 MG PO BID for 30 Days, TAB Prov:JING BRICENO MD 12/16/18 Medications Current Medications Acetaminophen (Tylenol Tab) 650 mg Q4H PRN PO fever Last administered on 01/29/19 21:32; Admin Dose 650 MG; Start 01/25/19 at 18:00 Finasteride (Proscar) 5 mg DAILY PO Last administered on 01/31/19 09:32; Admin Dose 5 MG; Start 01/26/19 at 09:00 Acetaminophen/ Hydrocodone Bitart ([place] (10/325)) 1 tab Q6H PRN PO MODERATE PAIN LEVEL 4-6 Last administered on 01/31/19 09:38; Admin Dose 1 TAB; Start 01/25/19 at 18:00 Morphine Sulfate (Ms Contin (Er)) 15 mg Q12 PRN PO SEVERE PAIN LEVEL 7-10; Start 01/25/19 at 18:00 Pantoprazole (Protonix Tab) 40 mg DAILY@0600 PO Last administered on 01/31/19 05:45; Admin Dose 40 MG; Start 01/26/19 at 06:00 Senna (Senokot) 1 tab DAILY PO Last administered on 01/29/19 08:59; Admin Dose 1 TAB; Start 01/26/19 at 09:00 Tamsulosin HCl (Flomax) 0.4 mg DAILY PO Last administered on 01/31/19 09:32; Admin Dose 0.4 MG; Start 01/26/19 at 09:00 Miscellaneous Information DOSE = 160mg = 4 X 4... QHS XX Last administered on 01/30/19 22:54; Admin Dose 160 MG; Start 01/26/19 at 21:00 Ondansetron HCl (Zofran Inj) 4 mg Q4H PRN IV NAUSEA AND/OR VOMITING Last administered on 01/29/19 09:40; Admin Dose 4 MG; Start 01/29/19 at 09:30 Sodium Hypochlorite (Dakins Diluted ()) 1 applic BID TP Last administered on 01/31/19 09:38; Admin Dose 1 APPLIC; Start 01/29/19 at 21:00 Sodium Bicarbonate 150 meq/Dextrose 1,150 ml @ 100 mls/hr [id number] IV Last administered on 01/31/19 09:33; Admin Dose 100 MLS/HR; Start 01/30/19 at 10:30 Meropenem/Sodium Chloride 50 ml @ 100 mls/hr Q8 IVPB Last administered on 01/31/19 14:00; Admin Dose 100 MLS/HR; Start 01/30/19 at 16:00 Albumin Human 50 ml @ 100 mls/hr Q8H IV Last administered on 01/31/19 17:02; Admin Dose 100 MLS/HR; Start 01/31/19 at 10:00; Stop 02/01/19 at 02:29 Midodrine (Proamatine) 10 mg TID@09,13,17 PO Last administered on 01/31/19 17:01; Admin Dose 10 MG; Start 01/31/19 at 17:00 Daptomycin 500 mg/ Sodium Chloride 100 ml @ 200 mls/hr Q24H IVPB ; Start 01/31/19 at 21:00 Norepinephrine 250 ml @ 0 mls/hr TITRATE IV ; Start 01/31/19 at 20:30 Assessment/Plan Hospital Course (Demo Recall) This is a 54-year-old -[place] male, well-known to me, is known to have a history of metastatic prostate cancer. And he does have urinary retention and chronic indwelling Mcpherson catheter. He has had hematuria on and off. He is on medications for his prostate cancer. The patient is bedridden. He presented to the emergency room because of generalized weakness and was found to be very anemic with a hemoglobin of 4.3. He was transfused and a urological consultation was requested today as he has no urine output coming from the Mcpherson catheter. After discussing with his and her insistence on the changing the Mcpherson catheter I did go ahead and removed the old Mcpherson catheter. Then I retracted the foreskin back and prepped the penis and inserted a new 16 Malagasy Mcpherson catheter. It went into the bladder without any problem. I did hand irrigate it with normal saline and it did irrigate well. RYAN SEBASTIAN MD Jan 31, 2019 20:50
[2019-01-31] MEDS: DAPTOMYCIN 500 MG in SOD CHLORIDE 0.9% 100 ML IVPB SCH (21:33)
[2019-02-01] VITALS (105 sets, daily range): BP systolic 57–125; BP diastolic 24–83; PULSE 0–136; RESP 0–38
[2019-02-01] MEDS: ALBUMIN HUMAN 25% 50 ML IV SCH (01:15)
[2019-02-01] MEDS: PANTOPRAZOLE (EC) 40 MG TAB PO SCH (06:00)
[2019-02-01] MEDS: MEROPENEM 1 GM/50ML(PMX) 50 ML IVPB SCH (06:01)
[2019-02-01] MEDS: NORepinephrine 8MG/250 ML (PMX 250 ML IV SCH ×4 (06:11→21:49)
[2019-02-01] MEDS: SODIUM BICARBONATE (IV ADD) 150 MEQ in DEXTROSE 5% 1,000 ML IV SCH ×2 (08:30→17:01)
[2019-02-01] MEDS: BALSAM PERU/CASTOR OIL 60 GM TUBE TOP SCH ×2 (09:00→21:21)
[2019-02-01] MEDS: FINASTERIDE 5 MG TAB PO SCH (09:00)
[2019-02-01] MEDS: MIDODRINE 5 MG TAB PO SCH ×3 (09:00→16:53)
[2019-02-01] MEDS: SENNA TAB PO SCH (09:00)
[2019-02-01] MEDS: DAKINS 0.0125%(1/40) 473 ML SOLUTION TP SCH ×2 (09:00→21:21)
[2019-02-01] MEDS: TAMSULOSIN (SR) 0.4 MG CAP PO SCH (09:00)
--- NOTE | 2019-02-01 10:22 | CONS ---
[facility] HCIS Consult Follow-up Patient Name: Gerber Aranda Unit Number: [id number] Date of : 1965 Patient Status: Admitted Inpatient Attending Doctor: Jack Orr MD Edit: KUMAR CHIN M.D. on 02/03/19 @ 16:59 Elsy: I discussed the management with CORNER CUTTER MACHINE OPERATOR Rupinder and agree Assessment/Plan Assessment/Plan Hospital Course (Demo Recall) - Severe sepsis 2/2 Bacteremia and polymicrobial UTI +/- sacrococcyx pressure ulcer infection - E. Coli bacteremia on 01/25/2019; MRSA bacteremia 01/29/19 & 01/30/19 - CAUTI d/t VRE, MRSA, and C. albicans - s/p f/c change by urology 01/31/19 - Recurrent funguria - Acute hypoxic respiratory failure- s/p Bipap, now weaned back to O2 at 2L via NC - Lactic acidosis - Acute on chronic anemia requiring PRBC - Thrombocytopenia - improving - Pancytopenia - Symptomatic bradycardia - HR improved - Unstageable sacrococcyx pressure ulcer - s/p excisional debridement 01/31/19; wound culture from 01/30/19 is in process - Multiple wounds - Hyponatremia - Hypocalcemia - Metastatic prostate cancer - Chronic back pain - Paraplegic - Severe hypoalbuminemia with anasarca - Severe protein calorie malnutrition - -s/p levaquin (01/28/2019-01/29/2019) Recommendations: - D/c IV meropenem (01/30/2019-02/01/19) - start ceftriaxone (02/01/19 -) - order ed - Continue Dapto (01/31/19 - ) CK on 02/01/19 was 132; s/p IV linezolid (01/28/2019-01/31/19) - F/u wound cx 01/29/19 (prelim too young to eval) - Repeat blood cultures x2 15 min apart - ordered - We recommend TTE to r/o endocarditis - Trend CBC and CrCl - Agree with palliative approach and transition to comfort care if family/patient amenable Plan was d/w patient's at bedside and with Dr. Chin. Total time spent 60 min. Consultation Date/Type/Reason Admit Date/Time Jan 26, 2019 at 09:33 Initial Consult Date 01/30/19 Type of Consult ID Requesting Provider: HAFSA CLEMONS MD Date/Time of Note DATE: 02/01/19 TIME: 10:14 24 HR Interval Summary Free Text/Dictation Patient has been hypothermic, warming blanket on. On pressors, levo 24mcg. wbc 3.5. blood cultures growing mrsa, ordered repeat cultures. at bedside, answered her questions. Exam/Review of Systems Exam Vitals Vital Signs Date Temp Pulse Resp B/P (MAP) Pulse Ox O2 O2 Flow FiO2 Time Delivery Rate 02/01/19 113 24 106/67 97 09:00 (80) 02/01/19 96.9 BIPAP 08:00 02/01/19 50 06:56 02/01/19 6.0 06:21 Allergies Coded Allergies No Known Allergy (Unverified01/25/19) Intake and Output 01/31/19 01/31/19 02/01/19 1515:00 23:00 07:00 IntakeIntake Total 760 ml 1955.0 ml 630.000 ml OutputOutput Total 275 ml 40 ml 175 ml BalanceBalance 485 ml 1915.0 ml 455.000 ml Constitutional: well developed, frail, other (lethargic) Psych: other (nonverbal) Head: normocephalic, atraumatic, other (facial bipap mask is on) Eyes: nl conjunctiva, nl lids, nl sclera ENMT: nl external ears & nose, nl nasal mucosa & septum, other (OP dry) Neck: supple, non-tender Respiratory: normal air movement, other (coarse breath sounds bilateraly, anteriorly, on bipap at 50% fio2. ); No wheezing Cardiovascular: regular rate and rhythm (tachycardic), nl pulses, edema (4+ BLE) Gastrointestinal: soft, non-tender Genitourinary - Male: other (f/c with yellow urine noted; scrotal edema.) Musculoskeletal: nl extremities to inspection, muscle weakness Extremities: edema (BLE), other (LUE Midline site is c/d/i) Neurological: focal weakness (paraplegic ), other (lethargic) Skin: nl turgor, other (reviewed nsg notes/pics) Results Result Diagram: 02/01/19 0438 02/01/19 0438 Results 24hrs Laboratory Tests Test 02/01/19 04:38 White Blood Count 3.5 L Red Blood Count 2.74 L Hemoglobin 8.3 L Hematocrit 26.0 L Mean Corpuscular Volume 94.9 Mean Corpuscular Hemoglobin 30.3 Mean Corpuscular Hemoglobin Concent 31.9 L Red Cell Distribution Width 18.2 H Platelet Count 122 #L Mean Platelet Volume 10.4 Immature Granulocytes % 6.500 H Neutrophils % Segmented Neutrophils % (Manual) 66 Band Neutrophils % (Manual) 6 H Lymphocytes % Lymphocytes % (Manual) 19 Reactive Lymphocytes % (Manual) 1 H Monocytes % Monocytes % (Manual) 5 Eosinophils % Basophils % Metamyelocytes % (manual) 2 H Myelocytes % (Manual) 1 H Nucleated Red Blood Cells % 1 H Immature Granulocytes # 0.230 H Neutrophils # Neutrophils # (Manual) 2.3 Band Neutrophils # 0.2 Lymphocytes (Manual) 0.6 L Lymphocytes # Reactive Lymphocytes # 0.0 Monocytes # Monocytes # (Manual) 0.1 L Eosinophils # Basophils # Metamyelocytes # 0.0 Myelocytes # 0.0 Nucleated Red Blood Cells # Platelet Estimate DECREASED Polychromasia 1+ Anisocytosis 1+ Sodium Level 127 L Potassium Level 4.3 Chloride Level 101 Carbon Dioxide Level 19 L Anion Gap 7 Blood Urea Nitrogen 15 Creatinine 0.48 L Est Glomerular Filtrat Rate mL/min > 60 Glucose Level 116 Calcium Level 8.8 Phosphorus Level 3.3 Magnesium Level 1.7 Total Bilirubin 0.3 Direct Bilirubin 0.00 Indirect Bilirubin 0.3 Aspartate Amino Transf (AST/SGOT) 34 # Alanine Aminotransferase (ALT/SGPT) 9 L Alkaline Phosphatase 215 H Creatine Kinase 132 Total Protein 4.9 L Albumin 2.4 L Globulin 2.50 Albumin/Globulin Ratio 0.96 Imaging Imaging CXR 01/31/19 IMPRESSION: Bilateral perihilar and peripheral opacification with vascular indistinctness, without significant interval change from 01/30/2019 Persistent bilateral layering pleural effusions. Deformed appearance of the right humeral head and neck junction, partially visualized and may represent chronic fracture. Dedicated shoulder radiographs can be obtained as clinically warranted. Renal US 01/31/19 IMPRESSION: 1 . Atrophic left kidney. Increased bilateral renal echogenicity representing chronic renal parenchymal disease. 2. Mild to moderate bilateral hydronephrosis. 3. Multiple nonobstructive right renal calculi. 4. Small volume ascites. Medications Medication Current Medications Acetaminophen (Tylenol Tab) 650 mg Q4H PRN PO fever Last administered on 01/29/19 21:32; Admin Dose 650 MG; Start 01/25/19 at 18:00 Finasteride (Proscar) 5 mg DAILY PO Last administered on 01/31/19 09:32; Admin Dose 5 MG; Start 01/26/19 at 09:00 Acetaminophen/ Hydrocodone Bitart ([place] (10/325)) 1 tab Q6H PRN PO MODERATE PAIN LEVEL 4-6 Last administered on 01/31/19 09:38; Admin Dose 1 TAB; Start 01/25/19 at 18:00 Morphine Sulfate (Ms Contin (Er)) 15 mg Q12 PRN PO SEVERE PAIN LEVEL 7-10; Start 01/25/19 at 18:00 Pantoprazole (Protonix Tab) 40 mg DAILY@0600 PO Last administered on 01/31/19 05:45; Admin Dose 40 MG; Start 01/26/19 at 06:00 Senna (Senokot) 1 tab DAILY PO Last administered on 01/29/19 08:59; Admin Dose 1 TAB; Start 01/26/19 at 09:00 Tamsulosin HCl (Flomax) 0.4 mg DAILY PO Last administered on 01/31/19 09:32; Admin Dose 0.4 MG; Start 01/26/19 at 09:00 Miscellaneous Information DOSE = 160mg = 4 X 4... QHS XX Last administered on 01/30/19 22:54; Admin Dose 160 MG; Start 01/26/19 at 21:00 Ondansetron HCl (Zofran Inj) 4 mg Q4H PRN IV NAUSEA AND/OR VOMITING Last admin istered on 01/29/19 09:40; Admin Dose 4 MG; Start 01/29/19 at 09:30 Sodium Hypochlorite (Dakins Diluted (1/40)) 1 applic BID TP Last administered on 01/31/19 23:35; Admin Dose 1 APPLIC; Start 01/29/19 at 21:00 Sodium Bicarbonate 150 meq/Dextrose 1,150 ml @ 100 mls/hr [id number] IV Last administered on 01/31/19 09:33; Admin Dose 100 MLS/HR; Start 01/30/19 at 10:30 Meropenem/Sodium Chloride 50 ml @ 100 mls/hr Q8 IVPB Last administered on 02/01/19 06:01; Admin Dose 100 MLS/HR; Start 01/30/19 at 16:00 Midodrine (Proamatine) 10 mg TID@09,13,17 PO Last administered on 01/31/19 17:01; Admin Dose 10 MG; Start 01/31/19 at 17:00 Daptomycin 500 mg/ Sodium Chloride 100 ml @ 200 mls/hr Q24H IVPB Last administered on 01/31/19 21:33; Admin Dose 200 MLS/HR; Start 01/31/19 at 21:00 Norepinephrine 250 ml @ 0 mls/hr TITRATE IV Last administered on 02/01/19 06:11; Admin Dose 15 MLS/HR; Start 01/31/19 at 20:30 MIQUEL GAUTHIER NP Feb 01, 2019 10:22
--- NOTE | 2019-02-01 12:37 | PN ---
Date/Time of Note Date/Time of Note DATE: 02/01/19 TIME: 12:33 Assessment/Plan VTE Prophylaxis Risk score (from Ns)>0 risk: 8 [place] [facility] [place] contraindicated: low risk/ambulating Pharmacological prophylaxis: heparin Lines/Catheters IV Catheter Type (from Nrs): Mid Line Urinary Cath still in place: Yes Reason Cath still needed: urinary retention Assessment/Plan Assessment/Plan 1. sepssi<> uncelar etiology, numerous different bacteria grown from blood cultures, cont current abx, appreciate ID (b0 septic shock, cont levophed support 2. olguria, likely related to sepsis, increase ivf 3. pulm: resp failure, requiring bipap 4. anemia, s/p transfusion 5. widely metastatic ca prostate case dw family at bedside, possiblity of comfort oriented care presented to them, no decisions made at this time Result Diagram: 02/01/19 0438 02/01/19 0438 Results 24hrs Laboratory Tests Test 02/01/19 04:38 White Blood Count 3.5 L Red Blood Count 2.74 L Hemoglobin 8.3 L Hematocrit 26.0 L Mean Corpuscular Volume 94.9 Mean Corpuscular Hemoglobin 30.3 Mean Corpuscular Hemoglobin Concent 31.9 L Red Cell Distribution Width 18.2 H Platelet Count 122 #L Mean Platelet Volume 10.4 Immature Granulocytes % 6.500 H Neutrophils % Segmented Neutrophils % (Manual) 66 Band Neutrophils % (Manual) 6 H Lymphocytes % Lymphocytes % (Manual) 19 Reactive Lymphocytes % (Manual) 1 H Monocytes % Monocytes % (Manual) 5 Eosinophils % Basophils % Metamyelocytes % (manual) 2 H Myelocytes % (Manual) 1 H Nucleated Red Blood Cells % 1 H Immature Granulocytes # 0.230 H Neutrophils # Neutrophils # (Manual) 2.3 Band Neutrophils # 0.2 Lymphocytes (Manual) 0.6 L Lymphocytes # Reactive Lymphocytes # 0.0 Monocytes # Monocytes # (Manual) 0.1 L Eosinophils # Basophils # Metamyelocytes # 0.0 Myelocytes # 0.0 Nucleated Red Blood Cells # Platelet Estimate DECREASED Polychromasia 1+ Anisocytosis 1+ Sodium Level 127 L Potassium Level 4.3 Chloride Level 101 Carbon Dioxide Level 19 L Anion Gap 7 Blood Urea Nitrogen 15 Creatinine 0.48 L Est Glomerular Filtrat Rate mL/min > 60 Glucose Level 116 Calcium Level 8.8 Phosphorus Level 3.3 Magnesium Level 1.7 Total Bilirubin 0.3 Direct Bilirubin 0.00 Indirect Bilirubin 0.3 Aspartate Amino Transf (AST/SGOT) 34 # Alanine Aminotransferase (ALT/SGPT) 9 L Alkaline Phosphatase 215 H Creatine Kinase 132 Total Protein 4.9 L Albumin 2.4 L Globulin 2.50 Albumin/Globulin Ratio 0.96 Subjective 24 Hr Interval Summary Free Text/Dictation no response to voice or exam Exam/Review of Systems Exam Vitals Vital Signs Date Temp Pulse Resp B/P (MAP) Pulse Ox O2 O2 Flow FiO2 Time Delivery Rate 02/01/19 112 98 50 09:40 02/01/19 24 106/67 09:00 (80) 02/01/19 96.9 BIPAP 08:00 02/01/19 6.0 06:21 Intake and Output 01/31/19 01/31/19 02/01/19 1515:00 23:00 07:00 IntakeIntake Total 760 ml 1955.0 ml 630.000 ml OutputOutput Total 275 ml 40 ml 175 ml BalanceBalance 485 ml 1915.0 ml 455.000 ml Exam bipap, mckeon, L arm midline encephalopathic, ctab ant, soft nt, Results Results 24hrs Laboratory Tests Test 02/01/19 04:38 White Blood Count 3.5 L Red Blood Count 2.74 L Hemoglobin 8.3 L Hematocrit 26.0 L Mean Corpuscular Volume 94.9 Mean Corpuscular Hemoglobin 30.3 Mean Corpuscular Hemoglobin Concent 31.9 L Red Cell Distribution Width 18.2 H Platelet Count 122 #L Mean Platelet Volume 10.4 Immature Granulocytes % 6.500 H Neutrophils % Segmented Neutrophils % (Manual) 66 Band Neutrophils % (Manual) 6 H Lymphocytes % Lymphocytes % (Manual) 19 Reactive Lymphocytes % (Manual) 1 H Monocytes % Monocytes % (Manual) 5 Eosinophils % Basophils % Metamyelocytes % (manual) 2 H Myelocytes % (Manual) 1 H Nucleated Red Blood Cells % 1 H Immature Granulocytes # 0.230 H Neutrophils # Neutrophils # (Manual) 2.3 Band Neutrophils # 0.2 Lymphocytes (Manual) 0.6 L Lymphocytes # Reactive Lymphocytes # 0.0 Monocytes # Monocytes # (Manual) 0.1 L Eosinophils # Basophils # Metamyelocytes # 0.0 Myelocytes # 0.0 Nucleated Red Blood Cells # Platelet Estimate DECREASED Polychromasia 1+ Anisocytosis 1+ Sodium Level 127 L Potassium Level 4.3 Chloride Level 101 Carbon Dioxide Level 19 L Anion Gap 7 Blood Urea Nitrogen 15 Creatinine 0.48 L Est Glomerular Filtrat Rate mL/min > 60 Glucose Level 116 Calcium Level 8.8 Phosphorus Level 3.3 Magnesium Level 1.7 Total Bilirubin 0.3 Direct Bilirubin 0.00 Indirect Bilirubin 0.3 Aspartate Amino Transf (AST/SGOT) 34 # Alanine Aminotransferase (ALT/SGPT) 9 L Alkaline Phosphatase 215 H Creatine Kinase 132 Total Protein 4.9 L Albumin 2.4 L Globulin 2.50 Albumin/Globulin Ratio 0.96 Medications Medication Current Medications Acetaminophen (Tylenol Tab) 650 mg Q4H PRN PO fever Last administered on 01/29/19 21:32; Admin Dose 650 MG; Start 01/25/19 at 18:00 Finasteride (Proscar) 5 mg DAILY PO Last administered on 01/31/19 09:32; Admin Dose 5 MG; Start 01/26/19 at 09:00 Acetaminophen/ Hydrocodone Bitart ([place] (10)) 1 tab Q6H PRN PO MODERATE PAIN LEVEL 4-6 Last administered on 01/31/19 09:38; Admin Dose 1 TAB; Start 01/25/19 at 18:00 Morphine Sulfate (Ms Contin (Er)) 15 mg Q12 PRN PO SEVERE PAIN LEVEL 7-10; Start 01/25/19 at 18:00 Pantoprazole (Protonix Tab) 40 mg DAILY@0600 PO Last administered on 01/31/19 05:45; Admin Dose 40 MG; Start 01/26/19 at 06:00 Senna (Senokot) 1 tab DAILY PO Last administered on 01/29/19 08:59; Admin Dose 1 TAB; Start 01/26/19 at 09:00 Tamsulosin HCl (Flomax) 0.4 mg DAILY PO Last administered on 01/31/19 09:32; Admin Dose 0.4 MG; Start 01/26/19 at 09:00 Miscellaneous Information DOSE = 160mg = 4 X 4... QHS XX Last administered on 01/30/19 22:54; Admin Dose 160 MG; Start 01/26/19 at 21:00 Ondansetron HCl (Zofran Inj) 4 mg Q4H PRN IV NAUSEA AND/OR VOMITING Last administered on 01/29/19 09:40; Admin Dose 4 MG; Start 01/29/19 at 09:30 Sodium Hypochlorite (Dakins Diluted ()) 1 applic BID TP Last administered on 02/01/19 09:00; Admin Dose 1 APPLIC; Start 01/29/19 at 21:00 Sodium Bicarbonate 150 meq/Dextrose 1,150 ml @ 100 mls/hr [id number] IV Last administered on 01/31/19 09:33; Admin Dose 100 MLS/HR; Start 01/30/19 at 10:30 Meropenem/Sodium Chloride 50 ml @ 100 mls/hr Q8 IVPB Last administered on 02/01/19 06:01; Admin Dose 100 MLS/HR; Start 01/30/19 at 16:00 Midodrine (Proamatine) 10 mg TID@09,13,17 PO Last administered on 01/31/19 17:01; Admin Dose 10 MG; Start 01/31/19 at 17:00 Daptomycin 500 mg/ Sodium Chloride 100 ml @ 200 mls/hr Q24H IVPB Last administered on 01/31/19 21:33; Admin Dose 200 MLS/HR; Start 01/31/19 at 21:00 Norepinephrine 250 ml @ 0 mls/hr TITRATE IV Last administered on 02/01/19 12:12; Admin Dose 24 MLS/HR; Start 01/31/19 at 20:30 YADIEL SALEEM MD Feb 01, 2019 12:37
[2019-02-01] MEDS ORDERED: CEFTRIAXONE 1 GM/50 ML (PMX) 50 ML IVPB SCH (13:00)
[2019-02-01] MEDS ORDERED: SOD CHLORIDE 0.9% 1,000 ML IV ONE (13:00)
[2019-02-01] MEDS ORDERED: LIDOCAINE 1% (MPF) 5 ML VIAL SC ONE (13:30)
--- NOTE | 2019-02-01 13:50 | CONS ---
Consult Date/Type/Reason Admit Date/Time Jan 26, 2019 at 09:33 Initial Consult Date 01/30/19 Type of Consultation: Pulm/CCM Requesting Provider: HAFSA CLEMONS MD Date/Time of Note DATE: 02/01/19 TIME: 13:45 Subjective No events. Remains on BiPAP; slightly responsive to commands. Objective Vitals Vital Signs Date Temp Pulse Resp B/P (MAP) Pulse Ox O2 O2 Flow FiO2 Time Delivery Rate 02/01/19 115 24 99/56 (70) 96 12:30 02/01/19 98.2 12:00 02/01/19 40 11:10 02/01/19 BIPAP 08:00 02/01/19 6.0 06:21 Intake and Output 01/31/19 01/31/19 02/01/19 1515:00 23:00 07:00 IntakeIntake Total 760 ml 1955.0 ml 630.000 ml OutputOutput Total 275 ml 40 ml 175 ml BalanceBalance 485 ml 1915.0 ml 455.000 ml Exam HEENT: Neck supple; no JVD; no LAD CVS: Tachy, S1 and S2 CHEST: Bibasilar rales ABD: Soft, NT, + BS EXT: No c/c/e Results/Medications Result Diagram: 02/01/19 0438 02/01/19 0438 Results 24 hrs Laboratory Tests Test 02/01/19 04:38 White Blood Count 3.5 L Red Blood Count 2.74 L Hemoglobin 8.3 L Hematocrit 26.0 L Mean Corpuscular Volume 94.9 Mean Corpuscular Hemoglobin 30.3 Mean Corpuscular Hemoglobin Concent 31.9 L Red Cell Distribution Width 18.2 H Platelet Count 122 #L Mean Platelet Volume 10.4 Immature Granulocytes % 6.500 H Neutrophils % Segmented Neutrophils % (Manual) 66 Band Neutrophils % (Manual) 6 H Lymphocytes % Lymphocytes % (Manual) 19 Reactive Lymphocytes % (Manual) 1 H Monocytes % Monocytes % (Manual) 5 Eosinophils % Basophils % Metamyelocytes % (manual) 2 H Myelocytes % (Manual) 1 H Nucleated Red Blood Cells % 1 H Immature Granulocytes # 0.230 H Neutrophils # Neutrophils # (Manual) 2.3 Band Neutrophils # 0.2 Lymphocytes (Manual) 0.6 L Lymphocytes # Reactive Lymphocytes # 0.0 Monocytes # Monocytes # (Manual) 0.1 L Eosinophils # Basophils # Metamyelocytes # 0.0 Myelocytes # 0.0 Nucleated Red Blood Cells # Platelet Estimate DECREASED Polychromasia 1+ Anisocytosis 1+ Sodium Level 127 L Potassium Level 4.3 Chloride Level 101 Carbon Dioxide Level 19 L Anion Gap 7 Blood Urea Nitrogen 15 Creatinine 0.48 L Est Glomerular Filtrat Rate mL/min > 60 Glucose Level 116 Calcium Level 8.8 Phosphorus Level 3.3 Magnesium Level 1.7 Total Bilirubin 0.3 Direct Bilirubin 0.00 Indirect Bilirubin 0.3 Aspartate Amino Transf (AST/SGOT) 34 # Alanine Aminotransferase (ALT/SGPT) 9 L Alkaline Phosphatase 215 H Creatine Kinase 132 Total Protein 4.9 L Albumin 2.4 L Globulin 2.50 Albumin/Globulin Ratio 0.96 Home Meds Reported Medications Hydrocodone/Acetaminophen ([place] 10-325 Tablet) 1 Each Tablet, 1 EACH PO Q6 PRN for PAIN, TAB 01/25/19 Morphine Sulfate* (Ms Contin*) 15 Mg Tablet.sa, 15 MG PO Q12 PRN for PAIN, TAB 01/25/19 Metoprolol Tartrate* (Lopressor*) 25 Mg Tablet, 25 MG PO BID, #60 TAB if blood pressure is 110 or higher 01/25/19 Sennosides* (Senna Lax*) 8.6 Mg Tablet, 1 TAB PO DAILY, TAB 01/25/19 Enzalutamide (XTANDI) 40 Mg Capsule, 160 MG PO QHS, CAP pt has own med 01/25/19 Finasteride* (Finasteride*) 5 Mg Tablet, 5 MG PO DAILY, TAB 01/25/19 Pantoprazole* (Protonix*) 40 Mg Tablet.dr, 40 MG PO DAILY, TAB 01/25/19 Ferrous Sulfate* (Ferrous Sulfate*) 325 Mg Tabec, 325 MG PO BID, TAB 01/25/19 Tamsulosin Hcl* (Flomax*) 0.4 Mg Cap.er.24h, 0.4 MG PO DAILY, CAP 01/25/19 Discontinued Reported Medications Enzalutamide (XTANDI) 40 Mg Capsule, 160 MG PO, CAP 12/16/18 Discontinued Scripts Levofloxacin* (Levaquin*) 500 Mg Tablet, 500 MG PO DAILY for 7 Days, TAB Prov:JING BRICENO MD 12/16/18 Finasteride* (Finasteride*) 5 Mg Tablet, 5 MG PO DAILY for 30 Days, TAB Prov:JING BRICENO MD 12/16/18 Hydrocodone Bit-Acetaminophen (Hydrocodone Bit-APAP) 5-325MG Tablet, 1 TAB PO Q6H PRN for PAIN LEVEL 1-3 for 30 Days, TAB Prov:JING BRICENO MD 12/16/18 Gabapentin* (Gabapentin*) 300 Mg Capsule, 300 MG PO BID for 30 Days, CAP Prov:JING BRICENO MD 12/16/18 Metoprolol Tartrate* (Lopressor*) 25 Mg Tab, 25 MG PO BID for 30 Days, TAB Prov:JING BRICENO MD 12/16/18 Medications Current Medications Acetaminophen (Tylenol Tab) 650 mg Q4H PRN PO fever Last administered on 01/29/19 21:32; Admin Dose 650 MG; Start 01/25/19 at 18:00 Finasteride (Proscar) 5 mg DAILY PO Last administered on 01/31/19 09:32; Admin Dose 5 MG; Start 01/26/19 at 09:00 Acetaminophen/ Hydrocodone Bitart ([place] (10/325)) 1 tab Q6H PRN PO MODERATE PAIN LEVEL 4-6 Last administered on 01/31/19 09:38; Admin Dose 1 TAB; Start 01/25/19 at 18:00 Morphine Sulfate (Ms Contin (Er)) 15 mg Q12 PRN PO SEVERE PAIN LEVEL 7-10; Start 01/25/19 at 18:00 Pantoprazole (Protonix Tab) 40 mg DAILY@0600 PO Last administered on 01/31/19 05:45; Admin Dose 40 MG; Start 01/26/19 at 06:00 Senna (Senokot) 1 tab DAILY PO Last administered on 01/29/19 08:59; Admin Dose 1 TAB; Start 01/26/19 at 09:00 Tamsulosin HCl (Flomax) 0.4 mg DAILY PO Last administered on 01/31/19 09:32; Admin Dose 0.4 MG; Start 01/26/19 at 09:00 Miscellaneous Information DOSE = 160mg = 4 X 4... QHS XX Last administered on 01/30/19 22:54; Admin Dose 160 MG; Start 01/26/19 at 21:00 Ondansetron HCl (Zofran Inj) 4 mg Q4H PRN IV NAUSEA AND/OR VOMITING Last administered on 01/29/19 09:40; Admin Dose 4 MG; Start 01/29/19 at 09:30 Sodium Hypochlorite (Dakins Diluted ()) 1 applic BID TP Last administered on 02/01/19 09:00; Admin Dose 1 APPLIC; Start 01/29/19 at 21:00 Sodium Bicarbonate 150 meq/Dextrose 1,150 ml @ 100 mls/hr [id number] IV Last administered on 01/31/19 09:33; Admin Dose 100 MLS/HR; Start 01/30/19 at 10:30 Midodrine (Proamatine) 10 mg TID@09,13,17 PO Last administered on 01/31/19 17:01; Admin Dose 10 MG; Start 01/31/19 at 17:00 Daptomycin 500 mg/ Sodium Chloride 100 ml @ 200 mls/hr Q24H IVPB Last administered on 01/31/19 21:33; Admin Dose 200 MLS/HR; Start 01/31/19 at 21:00 Norepinephrine 250 ml @ 0 mls/hr TITRATE IV Last administered on 02/01/19 12:12; Admin Dose 24 MLS/HR; Start 01/31/19 at 20:30 Ceftriaxone Sodium 50 ml @ 100 mls/hr Q24H IVPB ; Start 02/01/19 at 13:00 Sodium Chloride 1,000 ml @ 1,000 mls/hr Q1H ONCE IV ; Start 02/01/19 at 13:00; Stop 02/01/19 at 13:59 Assessment/Plan Assessment/Plan (Daily) IMP: 1. Septic Shock 2. MRSA bacteremia 3. Hypoxemic Resp Failure 4. Pancytopenia 5. Hyponatremia 6. Metastatic prostate cancer RECS: 1. Spoke with family about transitioning to comfort measures. Family awaiting arrival of brother from [place]. I explained to them that home hospice will likely not be an option given his hemodynamic instability and BiPAP-dependent respiratory failure. Will plan to transition to comfort upon brother's arrival. 2. Continue BiPAP for now 3. Levophed gtt to MAP > 65 mm Hg 4. Abx per ID 5. DNR/DNI 35 min cc time DEMI TRUJILLO MD Feb 01, 2019 13:50
--- NOTE | 2019-02-01 17:31 | CONS ---
Consult Date/Type/Reason Admit Date/Time Jan 26, 2019 at 09:33 Initial Consult Date 01/30/19 Type of Consultation: Urology Reason for Consultation Metastatic prostate cancer and generalized edema and penoscrotal swelling Requesting Provider: HAFSA CLEMONS MD Date/Time of Note DATE: 02/01/19 TIME: 17:29 Subjective The patient is very lethargic and appears to be terminal Objective Vitals Vital Signs Date Temp Pulse Resp B/P (MAP) Pulse Ox O2 O2 Flow FiO2 Time Delivery Rate 02/01/19 125 98 50 17:03 02/01/19 24 99/56 (70) 12:30 02/01/19 98.2 12:00 02/01/19 BIPAP 11:00 02/01/19 6.0 06:21 Intake and Output 01/31/19 01/31/19 02/01/19 1515:00 23:00 07:00 IntakeIntake Total 760 ml 1955.0 ml 630.000 ml OutputOutput Total 275 ml 40 ml 175 ml BalanceBalance 485 ml 1915.0 ml 455.000 ml Exam Generalized edema, penoscrotal edema, Mcpherson catheter is draining small amount of clear urine. Results/Medications Result Diagram: 02/01/19 0438 02/01/19 0438 Results 24 hrs Laboratory Tests Test 02/01/19 04:38 White Blood Count 3.5 L Red Blood Count 2.74 L Hemoglobin 8.3 L Hematocrit 26.0 L Mean Corpuscular Volume 94.9 Mean Corpuscular Hemoglobin 30.3 Mean Corpuscular Hemoglobin Concent 31.9 L Red Cell Distribution Width 18.2 H Platelet Count 122 #L Mean Platelet Volume 10.4 Immature Granulocytes % 6.500 H Neutrophils % Segmented Neutrophils % (Manual) 66 Band Neutrophils % (Manual) 6 H Lymphocytes % Lymphocytes % (Manual) 19 Reactive Lymphocytes % (Manual) 1 H Monocytes % Monocytes % (Manual) 5 Eosinophils % Basophils % Metamyelocytes % (manual) 2 H Myelocytes % (Manual) 1 H Nucleated Red Blood Cells % 1 H Immature Granulocytes # 0.230 H Neutrophils # Neutrophils # (Manual) 2.3 Band Neutrophils # 0.2 Lymphocytes (Manual) 0.6 L Lymphocytes # Reactive Lymphocytes # 0.0 Monocytes # Monocytes # (Manual) 0.1 L Eosinophils # Basophils # Metamyelocytes # 0.0 Myelocytes # 0.0 Nucleated Red Blood Cells # Platelet Estimate DECREASED Polychromasia 1+ Anisocytosis 1+ Sodium Level 127 L Potassium Level 4.3 Chloride Level 101 Carbon Dioxide Level 19 L Anion Gap 7 Blood Urea Nitrogen 15 Creatinine 0.48 L Est Glomerular Filtrat Rate mL/min > 60 Glucose Level 116 Calcium Level 8.8 Phosphorus Level 3.3 Magnesium Level 1.7 Total Bilirubin 0.3 Direct Bilirubin 0.00 Indirect Bilirubin 0.3 Aspartate Amino Transf (AST/SGOT) 34 # Alanine Aminotransferase (ALT/SGPT) 9 L Alkaline Phosphatase 215 H Creatine Kinase 132 Total Protein 4.9 L Albumin 2.4 L Globulin 2.50 Albumin/Globulin Ratio 0.96 Home Meds Reported Medications Hydrocodone/Acetaminophen ([place] 10-325 Tablet) 1 Each Tablet, 1 EACH PO Q6 PRN for PAIN, TAB 01/25/19 Morphine Sulfate* (Ms Contin*) 15 Mg Tablet.sa, 15 MG PO Q12 PRN for PAIN, TAB 01/25/19 Metoprolol Tartrate* (Lopressor*) 25 Mg Tablet, 25 MG PO BID, #60 TAB if blood pressure is 110 or higher 01/25/19 Sennosides* (Senna Lax*) 8.6 Mg Tablet, 1 TAB PO DAILY, TAB 01/25/19 Enzalutamide (XTANDI) 40 Mg Capsule, 160 MG PO QHS, CAP pt has own med 01/25/19 Finasteride* (Finasteride*) 5 Mg Tablet, 5 MG PO DAILY, TAB 01/25/19 Pantoprazole* (Protonix*) 40 Mg Tablet.dr, 40 MG PO DAILY, TAB 01/25/19 Ferrous Sulfate* (Ferrous Sulfate*) 325 Mg Tabec, 325 MG PO BID, TAB 01/25/19 Tamsulosin Hcl* (Flomax*) 0.4 Mg Cap.er.24h, 0.4 MG PO DAILY, CAP 01/25/19 Discontinued Reported Medications Enzalutamide (XTANDI) 40 Mg Capsule, 160 MG PO, CAP 12/16/18 Discontinued Scripts Levofloxacin* (Levaquin*) 500 Mg Tablet, 500 MG PO DAILY for 7 Days, TAB Prov:JING BRICENO MD 12/16/18 Finasteride* (Finasteride*) 5 Mg Tablet, 5 MG PO DAILY for 30 Days, TAB Prov:JING BRICENO MD 12/16/18 Hydrocodone Bit-Acetaminophen (Hydrocodone Bit-APAP) 5-325MG Tablet, 1 TAB PO Q6H PRN for PAIN LEVEL 1-3 for 30 Days, TAB Prov:JING BRICENO MD 12/16/18 Gabapentin* (Gabapentin*) 300 Mg Capsule, 300 MG PO BID for 30 Days, CAP Prov:JING BRICENO MD 12/16/18 Metoprolol Tartrate* (Lopressor*) 25 Mg Tab, 25 MG PO BID for 30 Days, TAB Prov:JING BRICENO MD 12/16/18 Medications Current Medications Acetaminophen (Tylenol Tab) 650 mg Q4H PRN PO fever Last administered on 01/29/19 21:32; Admin Dose 650 MG; Start 01/25/19 at 18:00 Finasteride (Proscar) 5 mg DAILY PO Last administered on 01/31/19 09:32; Admin Dose 5 MG; Start 01/26/19 at 09:00 Acetaminophen/ Hydrocodone Bitart ([facility] (10/325)) 1 tab Q6H PRN PO MODERATE PAIN LEVEL 4-6 Last administered on 01/31/19 09:38; Admin Dose 1 TAB; Start 01/25/19 at 18:00 Morphine Sulfate (Ms Contin (Er)) 15 mg Q12 PRN PO SEVERE PAIN LEVEL 7-10; Start 01/25/19 at 18:00 Pantoprazole (Protonix Tab) 40 mg DAILY@0600 PO Last administered on 01/31/19 05:45; Admin Dose 40 MG; Start 01/26/19 at 06:00 Senna (Senokot) 1 tab DAILY PO Last administered on 01/29/19 08:59; Admin Dose 1 TAB; Start 01/26/19 at 09:00 Tamsulosin HCl (Flomax) 0.4 mg DAILY PO Last administered on 01/31/19 09:32; Admin Dose 0.4 MG; Start 01/26/19 at 09:00 Miscellaneous Information DOSE = 160mg = 4 X 4... QHS XX Last administered on 01/30/19 22:54; Admin Dose 160 MG; Start 01/26/19 at 21:00 Ondansetron HCl (Zofran Inj) 4 mg Q4H PRN IV NAUSEA AND/OR VOMITING Last administered on 01/29/19 09:40; Admin Dose 4 MG; Start 01/29/19 at 09:30 Sodium Hypochlorite (Dakins Diluted (40)) 1 applic BID TP Last administered on 02/01/19 09:00; Admin Dose 1 APPLIC; Start 01/29/19 at 21:00 Sodium Bicarbonate 150 meq/Dextrose 1,150 ml @ 100 mls/hr [id number] IV Last administered on 02/01/19 17:01; Admin Dose 100 MLS/HR; Start 01/30/19 at 10:30 Midodrine (Proamatine) 10 mg TID@09,13,17 PO Last administered on 01/31/19 17:01; Admin Dose 10 MG; Start 01/31/19 at 17:00 Daptomycin 500 mg/ Sodium Chloride 100 ml @ 200 mls/hr Q24H IVPB Last administered on 01/31/19 21:33; Admin Dose 200 MLS/HR; Start 01/31/19 at 21:00 Norepinephrine 250 ml @ 0 mls/hr TITRATE IV Last administered on 02/01/19 16:47; Admin Dose 0 MLS/HR; Start 01/31/19 at 20:30 Ceftriaxone Sodium 50 ml @ 100 mls/hr Q24H IVPB Last administered on 02/01/19 13:00; Admin Dose 100 MLS/HR; Start 02/01/19 at 13:00 Assessment/Plan Hospital Course (Demo Recall) This is a 54-year-old -[place] male, well-known to me, is known to have a history of metastatic prostate cancer. And he does have urinary retention and chronic indwelling Mcpherson catheter. He has had hematuria on and off. He is on [facility] for his prostate cancer. The patient is bedridden. He presented to the emergency room because of generalized weakness and was found to be very anemic with a hemoglobin of 4.3. He was transfused and a urological consultation was requested The patient's condition is deteriorating and he is now more lethargic. He does have generalized edema and penoscrotal edema. The Mcpherson catheter is draining small amount of clear urine. Urologically keep the Mcpherson catheter in and from the nursing staff the family is considering him to go into hospice. RYAN SEBASTIAN MD Feb 01, 2019 17:31
--- NOTE | 2019-02-01 19:11 | PN ---
Date/Time of Note Date/Time of Note DATE: 02/01/19 TIME: 19:09 Assessment/Plan Lines/Catheters IV Catheter Type (from Nrs): Mid Line Mcpherson in Place (from Nrs): Yes Assessment/Plan Chief Complaint/Hosp Course 1. Multiple wounds -sacral wound s/p debridement 01/31 -podiatry for lower extremity ulcers -local care -frequent turning and off-loading -low air loss mattress -vitamin c -short term zinc -optimize nutrition 2. Sepsis: hypotensive likely 2/2 UTI plus bacteremia +/- infected sacral wound -Supportive care -Treat infections -Judicious fluid 3. UTI: -abx per sensitivity -frequent bladder emptying/cath care 4. Bacteremia -Antibiotics per sensitivity> per ID 5.Pancytopenia -Supportive 6.Hyponatremia: -Judicious fluid correction 7. Hypocalcemia with hypoalbuminemia: Likely multifactorial -Treat infections -Optimize nutrition 8. Metastatic prostate cancer: -Oncology follow-up 9. Chronic back pain: -Pain management Thank you, Subjective 24 Hr Interval Summary s/p Debridement 01/31. No fevers or chills. No cough. No seizure. No blood per mouth or rectum. Rectal tube. No vomiting. Still hypotensive. Minimal bloating. Labs noted. Exam/Review of Systems Vital Signs Vitals Vital Signs Date Temp Pulse Resp B/P (MAP) Pulse Ox O2 O2 Flow FiO2 Time Delivery Rate 02/01/19 125 98 50 17:03 02/01/19 24 99/56 (70) 12:30 02/01/19 98.2 12:00 02/01/19 BIPAP 11:00 02/01/19 6.0 06:21 Intake and Output 01/31/19 01/31/19 02/01/19 1515:00 23:00 07:00 IntakeIntake Total 760 ml 1955.0 ml 630.000 ml OutputOutput Total 275 ml 40 ml 175 ml BalanceBalance 485 ml 1915.0 ml 455.000 ml Exam Free Text/Dictation Constitutional: alert, responsive Psych: nl mood/affect; No anxiety Head: normocephalic, atraumatic Eyes: nl conjunctiva, EOMI, nl lids, nl sclera ENMT: nl external ears & nose, nl lips & teeth, mucosa pink and moist Neck: supple, non-tender; No jvd Respiratory: other (BiPAP); No congested cough, No labored breathing Cardiovascular: regular rate and rhythm, nl pulses, other (Sinus rhythm) Gastrointestinal: soft, non-tender; No distended, No tender Genitourinary - Male: nl penis; No nl scrotum (Minimal edema) Musculoskeletal: muscle weakness, other (Slight foot drop) Extremities: normal pulses, pitting pedal edema (1+) Neurological: responsive, flat affect No nl strength (Generalized weakness), No focal weakness Skin: nl turgor, other (Multiple wounds: Sacral coccyx with packing, no periwound erythema Results Result Diagram: 02/01/19 0438 02/01/19 0438 MARILU LUNA MD Feb 01, 2019 19:11
[2019-02-01] MEDS: DAPTOMYCIN 500 MG in SOD CHLORIDE 0.9% 100 ML IVPB SCH (21:20)
[2019-02-02] MEDS ORDERED: ALBUTEROL/IPRATROPIUM (NEB) 3 ML AMP HHN SCH (02:00)
[2019-02-02] MEDS ORDERED: ACETYLCYSTEINE 20% 4 ML VIAL NEB SCH (02:00)
--- NOTE | 2019-02-02 11:29 | DS ---
Date/Time of Note Date/Time of Note DATE: 02/02/19 TIME: 11:28 Discharge Summary Admission/Discharge Info Admit Date/Time Jan 26, 2019 at 09:33 Discharge Date/Time Feb 01, 2019 at 22:40 Discharge Diagnosis 1. sepsis 2. septic shock 3. prostate cancer 4. sacral decubitus Patient Condition: Stable Hospital Course fernando admitted with generalized weakness, found to have sepsis from multiple sources and organisms. He had septic shock and required pressors and succumbed to his illness on February 01. Home Meds Reported Medications Hydrocodone/Acetaminophen ([place] 10-325 Tablet) 1 Each Tablet, 1 EACH PO Q6 PRN for PAIN, TAB 01/25/19 Morphine Sulfate* (Ms Contin*) 15 Mg Tablet.sa, 15 MG PO Q12 PRN for PAIN, TAB 01/25/19 Metoprolol Tartrate* (Lopressor*) 25 Mg Tablet, 25 MG PO BID, #60 TAB if blood pressure is 110 or higher 01/25/19 Sennosides* (Senna Lax*) 8.6 Mg Tablet, 1 TAB PO DAILY, TAB 01/25/19 Enzalutamide (XTANDI) 40 Mg Capsule, 160 MG PO QHS, CAP pt has own med 01/25/19 Finasteride* (Finasteride*) 5 Mg Tablet, 5 MG PO DAILY, TAB 01/25/19 Pantoprazole* (Protonix*) 40 Mg Tablet.dr, 40 MG PO DAILY, TAB 01/25/19 Ferrous Sulfate* (Ferrous Sulfate*) 325 Mg Tabec, 325 MG PO BID, TAB 01/25/19 Tamsulosin Hcl* (Flomax*) 0.4 Mg Cap.er.24h, 0.4 MG PO DAILY, CAP 01/25/19 Primary Care Provider YADIEL Youngblood MD Feb 02, 2019 11:29
== END 2019-02-01 22:40 | disposition expired | DRG 981 ==
LOC: E/R 13:28 → ICU 16:38 → CANRESERV 20:37 → EDBEDREQSVC 21:41 → EDBEDREQ 21:41 → OBSVTOIN 01-26 09:33 → TEL 01-29 06:58 → ICU 01-30 03:54
PROVIDERS: ADMIT Internal Medicine; ATTEND Internal Medicine
PROC: 30253N1 (ICD-10-PCS; 2019-01-25)
PROC: 0KBP0ZZ Excision of Left Hip Muscle, Open Approach (ICD-10-PCS; principal; 2019-01-31)
PROC: 0KBN0ZZ Excision of Right Hip Muscle, Open Approach (ICD-10-PCS; 2019-01-31)
DX: T83.511A Infection and inflammatory reaction due to indwelling urethral catheter, initial encounter (principal); L89.154 Pressure ulcer of sacral region, stage 4; A41.01 Sepsis due to Methicillin susceptible Staphylococcus aureus; J96.01 Acute respiratory failure with hypoxia; E43 Unspecified severe protein-calorie malnutrition; A41.51 Sepsis due to Escherichia coli [E. coli]; R65.21 Severe sepsis with septic shock; G82.20 Paraplegia, unspecified; E87.1 Hypo-osmolality and hyponatremia; E87.2 Acidosis; D61.818 Other pancytopenia; I42.9 Cardiomyopathy, unspecified; C79.51 Secondary malignant neoplasm of bone; N39.0 Urinary tract infection, site not specified; Z16.21 Resistance to vancomycin; C61 Malignant neoplasm of prostate; L89.620 Pressure ulcer of left heel, unstageable; L89.610 Pressure ulcer of right heel, unstageable; D63.0 Anemia in neoplastic disease; G89.29 Other chronic pain; M54.9 Dorsalgia, unspecified; I10 Essential (primary) hypertension; E83.51 Hypocalcemia; Z68.25 Body mass index [BMI] 25.0-25.9, adult; Z74.01 Bed confinement status; L89.890 Pressure ulcer of other site, unstageable
CPT/HCPCS: 36415; 36430; 36600; 71045; 76775; 80048; 80053; 81001; 82150; 82550; 82553; 82803; 82962; 83605; 83690; 83735; 84100; 84145; 84153; 84154; 84484; 85025; 85610; 85730; 86850; 86900; 86901; 86920; 87070; 87075; 87081; 87086; 93005; 94660; 96374; 96375; G0378; J0692; J0696; J1940; J2185; J2405; J2543; J3370; J7030; J7040; J7042; J7050; J7070; P9016; P9047